=== PATIENT | female | born 1965 | race Caucasian/White ===

== ENCOUNTER 2017-01-11 17:33 | Emergency (ER) | payer OTHER ==
[~2017-01-11] VITALS: Ht 154.9 cm; Wt 84.8 kg
[~2017-01-11 17:33] MED LIST: CLINDAMYCIN300 MG PO; FLEXERIL10 MG PO; GABAPENTIN300 MG; NORCO 325 MG-51 TAB PO; TRAMADOL50 MG PO
[2017-01-11 18:17] VITALS: BP 178/82
--- NOTE | 2017-01-11 20:27 | ED ANIMAL BITE/WOUND CHECK ---
History of Present Illness General Chief Complaint: General Adult Stated Complaint: DOG BITE WEDNESDAY NO BETTER Source: patient Exam Limitations: no limitations Vital Signs & Intake/Output Vital Signs & Intake/Output Vital Signs Date Time Temp Pulse Resp B/P Pulse O2 O2 Flow FiO2 Ox Delivery Rate 01/11 2045 Room Air 01/11 1817 88 20 178/82 98 Room Air 01/11 1745 98.2 102 20 190/110 96 Room Air ED Intake and Output 01/12 0000 01/11 1200 Intake Total Output Total Balance Patient 187 lb Weight Allergies Coded Allergies: cephalexin (From KEFLEX) (ANAPHYLAXIS 01/11/17) Reconcile Medications Amoxicillin 500 MG CAPSULE 1 CAP PO TID ANTIBIOTIC (Reported) Amoxicillin/Potassium Clav (Augmentin 875-125 Tablet) 875 MG-125 MG TABLET 1 TAB PO BID cellulitis Clonazepam 1 MG TABLET 1 TAB PO TID ANXIETY (Reported) Clonidine HCl 0.2 MG TABLET 1 TAB PO TID BP (Reported) Fluoxetine HCl (Prozac) 20 MG CAPSULE 1 CAP PO QAM MENTAL HEALTH (Reported) Gabapentin (Neurontin) 300 MG CAPSULE 1 CAP PO TID NERVE PAIN (Reported) Hydrocodone/Acetaminophen (Hydrocodon-Acetaminophen 5-325) 5 MG-325 MG TABLET 1-2 TAB PO Q4-6 PRN PRN pain Ibuprofen 800 MG TABLET 1 TAB PO TID pain Lisdexamfetamine Dimesylate (Vyvanse) 60 MG CAPSULE 1 CAP PO QAM ADD ( Reported) Triage Note: PT TO ED C/O DOG BITE TO RIGHT HAND. SUSTAINED WEDNESDAY. PT HAS NOT BEEN SEEN FOR IT. HAS BEEN TAKING AMOXICILLIN 500MG TID THAT SHE FOUND AT HOME. IT WAS PT'S DOG, WHO IS UP TO DATE ON SHOTS. UNKNOWN LAST TETANUS SHOT PER PT. BITE TO RIGHT HAND, SWOLLEN, PINK AND WARM TO TOUCH. Triage Nurses Notes Reviewed? yes Onset: Abrupt Duration: day(s): (3), constant Timing: recent history Is Injury an Animal Bite? Yes Animal Type: dog Appearance of Animal: appeared well Severity: moderate, severe No Modifying Factors: none HPI: 51-year-old female comes into emergency room for further evaluation of dog bite to her right hand that occurred 3 days ago. Dog is up-to-date on rabies vaccine. Patient is not up-to-date on her tetanus shot. Patient reports that she had a few amoxicillin at home and took him but reports that she's had swelling and pain to the area. Denies any fever. Denies any vomiting. Some associated chills and just feels generally fatigued. Denies any other associated symptoms at this time. (ALICE ROSA) Past History Travel History Traveled to [place] past 21 day No Medical History Any Pertinent Medical History? see below for history Cardiovascular: hypertension Surgical History Surgical History: non-contributory Psychosocial History What is your primary language Iraqi Tobacco Use: Current Daily Use Daily Tobacco Use Amount/Type: => 5 Cigarettes daily ETOH Use: denies use Illicit Drug Use: denies illicit drug use Family History Hx Contributory? No (ALICE ROSA) Review of Systems Review of Systems Constitutional: Reports: no symptoms. EENTM: Reports: no symptoms. Respiratory: Reports: no symptoms. Cardiovascular: Reports: no symptoms. GI: Reports: no symptoms. Genitourinary: Reports: no symptoms. Musculoskeletal: Reports: see HPI. Skin: Reports: see HPI. Neurological/Psychological: Reports: no symptoms. Hematologic/Endocrine: Reports: no symptoms. Immunologic/Allergic: Reports: no symptoms. All Other Systems: Reviewed and Negative (ALICE ROSA) Physical Exam Physical Exam General Appearance: well developed/nourished Head: atraumatic Eyes: Bilateral: normal appearance. Ears, Nose, Throat: normal ENT inspection, hearing grossly normal Neck: normal inspection Respiratory: no respiratory distress Back: normal inspection Extremities: erythema dorsum of right hand, limited range of motion, warmth, tenderness with palpation, radial pulse intact, capillary refill intact, Neurologic/Psych: awake, alert, oriented x 3, normal mood/affect Skin: intact, normal color, warm/dry Lymphatic: no anterior cervical shreyas (ALICE ROSA) Progress Differential Diagnosis: abscess, cellulitis, joint infection, tenosysnovitis Plan of Care: Current Medications Sig/[place] Start time Last Medication Dose Stop Time Status Admin Tetanus/Diphtheria 0.5 ML ONCE ONE 01/11 2045 UNVr Toxoids Adsorbed 01/11 2046 (Decavac) Amoxicillin/ 500 MG ONCE ONE 01/11 2030 UNVr Clavulanate Potassium 01/11 2031 (Augmentin) Comments: Patient started on Augmentin. Patient will return in 3 days for a wound check. Clinically looks well. Nontoxic-appearing. In no apparent distress. (ALICE ROSA) Departure Departure Disposition: HOME OR SELF CARE Condition: Stable Clinical Impression Primary Impression: Cellulitis of right hand Referrals: ROSIBEL BOOTH APRN (PCP/Family) Additional Instructions: Take Augmentin as prescribed. Warm compresses to right hand. Return on of this week between 10/09 for wound check. Return if any spreading of redness, fever, chills, or any other concerns. Please go over all results of today's visit with your primary care doctor. Contact your primary care doctor to let them know you were here in the emergency room. There may be nonspecific findings which may not be related to your visit today here in the emergency room but may require further evaluation and chronic monitoring by your primary care doctor. If you had a laceration today the chance of foreign body always remains. You should follow-up with your primary care doctor for recheck in 3-5 days for a wound check. If you had an x-ray done there is a chance that a fracture could have been missed on initial read and you should follow-up with your primary care doctor for repeat x-rays if symptoms persist. If your blood pressure was elevated here in the emergency room please have rechecked by her primary care doctor within the next 48 hours by your primary care doctor. If you were prescribed a narcotic here in the emergency room or any type of controlled substances you're not allowed to drive while taking this medication or operate any type of heavy machinery. Narcotics can make you feel lightheaded dizziness nausea and can cause constipation. You may need to scrap picker a stool softener. Thank you for choosing [facility] emergency room. Please return to the emergency room immediately if you have any other concerns worsening of symptoms. Departure Forms: Customer Survey General Discharge Information Prescriptions: Current Visit Scripts Amoxicillin/Potassium Clav (Augmentin 875-125 Tablet) 1 TAB PO BID #20 TAB Hydrocodone/Acetaminophen (Hydrocodon-Acetaminophen 5-325) 1-2 TAB PO Q4-6 PRN PRN pain #10 TAB Ibuprofen 1 TAB PO TID #30 TAB (ALICE ROSA) PA/FEATHER BALER Co-Sign Statement Statement: ED Attending supervision documentation- [] I saw and evaluated the patient. I have also reviewed all the pertinent lab results and diagnostic results. I agree with the findings and the plan of care as documented in the PA's/FEATHER BALER's documentation. [X] I have reviewed the ED Record and agree with the PA's/FEATHER BALER's documentation. [] Additions or exceptions (if any) to the PAs/FEATHER BALER's note and plan are summarized below: [] (CYNTHIA MARTINEZ,DARRELL Mehta)
[2017-01-11] MEDS ORDERED: PROZAC20 M2 PO (20:29)
[2017-01-11] MEDS ORDERED: CLONIDINE HCL0.2 M1 PO (20:29)
[2017-01-11] MEDS ORDERED: NEURONTIN300 M1 PO (20:29)
[2017-01-11] MEDS ORDERED: VYVANSE60 M1 PO (20:30)
[2017-01-11] MEDS ORDERED: CLONAZEPAM1 M2 PO (20:30)
[2017-01-11] MEDS ORDERED: AMOXICILLIN500 M2 PO (20:31)
[2017-01-11] MEDS ORDERED: AUGMENTIN 875-1 EACH PO (20:34)
[2017-01-11] MEDS ORDERED: HYDROCODON-ACE1 EAC2 PO (20:42)
[2017-01-11] MEDS ORDERED: IBUPROFEN800 M1 PO (20:42)
== END 2017-01-11 20:57 ==
LOC: ERH 17:33
DX: L03.113 Cellulitis of right upper limb (principal); W54.0XXA Bitten by dog, initial encounter
CPT/HCPCS: 90471; 90714; J3490

== ENCOUNTER 2017-04-13 13:52 | Emergency (ER) | payer OTHER ==
[~2017-04-13] VITALS: Ht 154.9 cm; Wt 77.1 kg
[~2017-04-13 13:52] MED LIST changes: +AMOXICILLIN500 M2 PO; +AUGMENTIN 875-1 EACH PO; +CLONAZEPAM1 M2 PO; +CLONIDINE HCL0.2 M1 PO; +HYDROCODON-ACE1 EAC2 PO; +IBUPROFEN800 M1 PO; +NEURONTIN300 M1 PO; +PROZAC20 M2 PO; +VYVANSE60 M1 PO
[2017-04-13] MEDS ORDERED: PROZAC40 M1 PO (14:07)
[2017-04-13] MEDS ORDERED: NEURONTIN600 M1 PO (14:08)
[2017-04-13] MEDS ORDERED: DOLOPHINE HCL10 M1 PO (14:08)
[2017-04-13] MEDS ORDERED: ABILIFY10 M1 PO (14:08)
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
[2017-04-13 14:35] LABS: ABSOLUTE BASOPHIL COUNT 0 /CUMM (0.0-0.2); ABSOLUTE EOSINOPHIL COUNT 0.3 /CUMM (0.0-0.7); ABSOLUTE GRANULOCYTE CT 6.6 /CUMM (1.4-6.5); ABSOLUTE MONOCYTE COUNT 0.6 /CUMM (0.10-0.60); BASOPHIL % 0.3 % (0.0-2.0); EOSINOPHIL % 2.3 % (0-5); GRANULOCYTE % 52.7 % (42.2-75.2); MEAN CORPUSCULAR HGB 31.3 PG (27.0-31.0); MEAN CORPUSCULAR HGB CONC 32.9 G/DL (33.0-37.0); MEAN CORPUSCULAR VOLUME 95.1 FL (81.0-99.0); MEAN PLATELET VOLUME 9.2 FL (7.4-10.4); PLATELET COUNT 229 /CUMM (130-400); RED BLOOD CELL CT 4.41 /CUMM (4.20-5.40); WHITE BLOOD CELL COUNT 12.6 /CUMM (4.8-10.8)
[2017-04-13] MEDS ORDERED: CIPRO500 M1 PO (14:35)
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
[2017-04-14 14:05] VITALS: BP 129/78
== END 2017-04-14 14:51 | disposition short-term general hospital (02) ==
LOC: ERH 13:52
PROVIDERS: Emergency Medicine
DX: F32.9 Major depressive disorder, single episode, unspecified (principal); R45.851 Suicidal ideations
CPT/HCPCS: 80307; 81003; G0463; G0480

== ENCOUNTER 2017-04-30 18:46 | Emergency (ER) | payer OTHER ==
[~2017-04-30] VITALS: Ht 154.9 cm; Wt 80.7 kg
[~2017-04-30 18:46] MED LIST changes: +ABILIFY10 M1 PO; +CIPRO500 M1 PO; +DOLOPHINE HCL10 M1 PO; +NEURONTIN600 M1 PO; +PROZAC40 M1 PO
[2017-04-30 18:54] VITALS: BP 139/83
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
[2017-04-30] MEDS ORDERED: VYVANSE60 M1 (20:28)
[2017-04-30] MEDS ORDERED: DOXYCYCLINE HY100 M4 PO (20:45)
== END 2017-04-30 20:53 ==
LOC: ERH 18:46
DX: L03.114 Cellulitis of left upper limb (principal); L03.311 Cellulitis of abdominal wall

== ENCOUNTER 2017-05-18 14:22 | Inpatient (IN) | payer OTHER ==
[~2017-05-18] VITALS: Ht 158.8 cm; Wt 79.8 kg
[~2017-05-18 14:22] MED LIST changes: +DOXYCYCLINE HY100 M4 PO; +VYVANSE60 M1
[2017-05-18 16:33] LABS: ABSOLUTE BASOPHIL COUNT 0 /CUMM (0.0-0.2); ABSOLUTE EOSINOPHIL COUNT 0.2 /CUMM (0.0-0.7); ABSOLUTE GRANULOCYTE CT 15.9 /CUMM (1.4-6.5); ABSOLUTE LYMPH COUNT 2.1 /CUMM (1.2-3.4); ABSOLUTE MONOCYTE COUNT 0.7 /CUMM (0.10-0.60); BASOPHIL % 0.1 % (0.0-2.0); EOSINOPHIL % 0.8 % (0-5); HEMATOCRIT 39.5 % (37-47); MEAN CORPUSCULAR HGB 31.3 PG (27.0-31.0); MEAN CORPUSCULAR VOLUME 94.6 FL (81.0-99.0); MEAN PLATELET VOLUME 8.4 FL (7.4-10.4); PLATELET COUNT 227 /CUMM (130-400); RBC DISTRIBUTION WIDTH 14.4 % (11.5-14.5); RED BLOOD CELL CT 4.17 /CUMM (4.20-5.40); WHITE BLOOD CELL COUNT 18.9 /CUMM (4.8-10.8)
[2017-05-18 16:34] LABS: GRANULOCYTE % 84.1 % (42.2-75.2)
[2017-05-18] MEDS ORDERED: NEURONTIN800 M2 PO (17:11)
--- NOTE | 2017-05-18 17:15 | ED THROAT/DENTAL COMPLAINT ---
History of Present Illness General Chief Complaint: General Adult Stated Complaint: SORE THROAT, FEET/LOWER LEGS SWOLLEN Source: patient Exam Limitations: no limitations Vital Signs & Intake/Output Vital Signs & Intake/Output Vital Signs Date Time Temp Pulse Resp B/P B/P Pulse O2 O2 Flow FiO2 Mean Ox Delivery Rate 05/18 2048 100.1 05/18 2015 99.6 78 20 130/76 90 Room Air 05/18 1851 102.5 79 20 131/63 95 Room Air 05/18 1431 99.1 82 18 118/78 96 Room Air Allergies Coded Allergies: cephalexin (From KEFLEX) (ANAPHYLAXIS 01/11/17) Reconcile Medications Aripiprazole (Abilify) 10 MG TABLET 1 TAB PO DAILY MENTAL HEALTH (Reported) Clonazepam 1 MG TABLET 1 TAB PO TID ANXIETY (Reported) Clonidine HCl 0.2 MG TABLET 1 TAB PO TID BP (Reported) Fluoxetine HCl (Prozac) 40 MG CAPSULE 1 CAP PO DAILY MENTAL HEALTH (Reported) Gabapentin (Neurontin) 800 MG TABLET 1 TAB PO TID MENTAL HEALTH/NERVE PAIN ( Reported) Methadone HCl (Dolophine HCl) 10 MG TABLET 80 MG PO DAILY OPIATE DEPENDENCE ( Reported) Triage Note: 51 Y/O FEMALE C/O SORE THROAT, FATIGUE, AND BILATERAL LEG SWELLING X 2-3 DAYS. STATES THIS HAPPENED ONCE BEFORE AND "I WAS SEPTIC FROM AN INFECTION AND I WASN'T EATING OR DRINKING". Triage Nurses Notes Reviewed? yes Onset: Gradual Duration: day(s): Timing: recent history Severity: severe No Modifying Factors: none HPI: 51yo female presents to emergency department complaining of sore throat. She states sore throat began yesterday morning when she woke up and has been gradually getting worse. Pain is described as severe, she states she can barely swallow, she is spitting up her bodily fluids, she is having difficulty eating and drinking. She also complains of mild nausea, fatigue, malaise, dry cough, bilateral ankle and foot swelling, and feeling feverish and chills. She states that a few years ago she was septic and had to be admitted at [place] for IV antibiotics, following a sore throat. She denies sick contact, dyspnea, abdominal pain, changes in bowel movements, urinary symptoms. (MAGALI URRUTIA,ALICE) Past History Travel History Traveled to [place] past 21 day No Medical History Any Pertinent Medical History? 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 Psychosocial History Who do you live with Daughter What is your primary language German Tobacco Use: Current Daily Use Daily Tobacco Use Amount/Type: => 5 Cigarettes daily Family History Hx Contributory? No (ALICE ROSA) Review of Systems Review of Systems Constitutional: Reports: see HPI. EENTM: Reports: see HPI. Respiratory: Reports: see HPI. Cardiovascular: Reports: no symptoms. GI: Reports: see HPI. Genitourinary: Reports: no symptoms. Musculoskeletal: Reports: no symptoms. Skin: Reports: no symptoms. Neurological/Psychological: Reports: no symptoms. Hematologic/Endocrine: Reports: no symptoms. Immunologic/Allergic: Reports: no symptoms. All Other Systems: Reviewed and Negative (ALICE ROSA) Physical Exam Physical Exam General Appearance: well developed/nourished, no apparent distress, lethargic Head: atraumatic, normal appearance Eyes: Bilateral: normal appearance, EOMI. Nose: normal inspection Mouth/Throat: YELLOW/BROWN PATCHES ON TONGUE, SCRAPPED OFF WITH KEYLA BLADE , SMALL WHITE PATCH VISIBLE ON POSTERIOR PHARYNX, NO TONSILS PRESENT, UVULA MIDLINE, Neck: lymphadenopathy (R), lymphadenopathy (L) (ANTERIOR CERVICAL) Cardiovascular/Respiratory: regular rate/rhythm, no respiratory distress, wheezing (EXPIRATORY) Gastrointestinal: BOWEL SOUNDS PRESENTS, ABDOMEN SOFT, NONTENDER, NO REBOUND OR GAURDING Back: normal inspection, normal range of motion Neurologic/Psych: awake, oriented x 3 Skin: intact, normal color, warm/dry Core Measures ACS in differential dx? No Severe Sepsis Present: No Septic Shock Present: No (ALICE ROSA) Progress Differential Diagnosis: epiglottitis, odontogenic abscess, mac-tonsillar abscess, strep pharyngitis, oral thrush, sepsis Plan of Care: Orders Procedure Date/time Status Clear Liquid Diet 05/19 B Active CBC WITHOUT DIFFERENTIAL 05/19 06 Active BASIC ELECTROLYTES PLUS BUN&CR 05/19 06 Active Pathway - chart 05/18 2103 Active TRC EVALUATION (GEN) 05/18 2100 Active Pathway - chart 05/18 2100 Active House Staff 05/18 2100 Active Code Status 05/18 2100 Active Vital Signs 05/18 204 Active Teach/Educate 05/18 2047 Active Pain Treatment and Response 05/18 2047 Active Nutritional Intake, Monitor 05/18 2047 Active Isolation 05/18 2047 Active Intake & Output 05/18 2047 Active Patient Care Conference 05/18 2047 Active Activity/Ambulation 05/18 2047 Active LACTIC ACID 05/18 2045 Active Add-on Test (ER Only) 05/18 195 Active Intake & Output 05/18 1850 Active CULTURE,URINE 05/18 181 Active URINALYSIS 05/18 181 Complete Patient Data 05/18 1750 Active LACTIC ACID 05/18 1745 Complete BLOOD CULTURE 05/18 1742 Active URINE DRUGS OF ABUSE 05/18 1742 Complete ED Holding Orders 05/18 1717 Active Admit to inpatient 05/18 1717 Active Vital Signs 05/18 1717 Active Code Status 05/18 1717 Complete THROAT CULTURE W/QUICK STREP 05/18 1619 Active COMPREHENSIVE METABOLIC PANEL 05/18 1619 Complete CBC WITHOUT DIFFERENTIAL 05/18 1619 Complete XRY-SOFT TISSUE NECK 05/18 UNK Active VTE Mechanical Prophylaxis 05/18 UNK Active Current Medications Sig/[place] Start time Last Medication Dose Stop Time Status Admin Methadone HCl 80 MG DAILY 05/19 1000 AC (Dolophine) Clonazepam 1 MG TID 05/180 AC (Klonopin 1MG Tab) 05/25 2159 Clonidine 0.2 MG TID 05/18 2200 AC (Catapres) Gabapentin 800 MG Q8 05/18 2200 AC (Neurontin) Acetaminophen 650 MG Q6P PRN 05/18 2115 AC (Tylenol) Ketorolac 15 MG Q6P PRN 05/18 2115 AC Tromethamine (Toradol) Morphine Sulfate 2 MG Q4P PRN 05/18 2115 AC (Morphine) Ondansetron HCl 4 MG Q6P PRN 05/18 2115 AC (Zofran) Senna/Docusate Sodium 2 TAB AT BEDTIME PRN 05/18 2115 AC (Senokot S) Enoxaparin Sodium 40 MG Q24H 05/18 2100 AC (Lovenox) Sodium Chloride 1,000 ML .Q10H 05/18 2100 AC (Normal Saline 0.9%) Aripiprazole 10 MG DAILY 05/18 2049 AC (Abilify) Fluoxetine HCl 40 MG DAILY 05/18 2049 AC (Prozac) Laboratory Tests 05/18/171810: Lactic Acid 0.9, Urine Opiates Screen 277.00, Methadone Screen 163, Barbiturate Screen < 60, Ur Phencyclidine Scrn < 6.00, Amphetamines Screen < 100, U Benzodiazepines Scrn > 800 H, Urine Cocaine Screen < 50, Urine Cannabis Screen < 5.00, Urinalysis LIGHT H, Urine Color YEL, Urine Clarity CLEAR, Urine pH 8.0, Ur Specific [place] 1.010, Urine Protein TRACE H, Urine Ketones NEG, Urine Nitrite NEG, Urine Bilirubin NEG, Urine Urobilinogen 1.0, Ur Leukocyte Esterase TRACE H, Ur Microscopic SEDIMENT EXAMINED, Urine WBC 1-3 H, Ur Epithelial Cells FEW, Urine Hemoglobin NEG, Urine Glucose NEG 05/18/17 1619: Anion Gap 9, Estimated GFR > 60, BUN/Creatinine Ratio 14.3, Glucose 105 H, Calcium 8.9, Total Bilirubin 0.6, AST 14, ALT 30, Alkaline Phosphatase 93, Total Protein 6.8, Albumin 3.9, Globulin 2.9, Albumin/Globulin Ratio 1.3, CBC w Diff MAN DIFF ORDERED, RBC 4.17 L, MCV 94.6, MCH 31.3 H, RDW 14.4, MPV 8.4, Gran % 84.1 H, Lymphocytes % 11.2 L, Monocytes % 3.8, Eosinophils % 0.8, Basophils % 0.1, Absolute Granulocytes 15.9 H, Absolute Lymphocytes 2.1, Absolute Monocytes 0.7 H, Absolute Eosinophils 0.2, Absolute Basophils 0, Poikilocytosis 1+, Ovalocytes FEW, PUBS MCHC 33.0 Microbiology 05/18 1811 URINE ROUT: Urine Culture - RECD 05/18 1757 BLOOD: Blood Culture - RECD 05/18 1751 BLOOD: Blood Culture - RECD Patient appears ill, she is not in acute respiratory distress however difficulty swallowing. Epiglottitis high concern on differential.. CBC shows leukocytosis. Patient also acting abnormally, she fell asleep during questioning, urine toxicology ordered to further assess. (ALICE ROSA) PATIENT SEEN AND EVALUATED AT BEDSIDE WITH PA. EPIGLOTTITIS SEEN ON EXAMINATION BY DR RODRIGUEZ IN ED WITH NPL. DOES NOT FEEL PATIENT NEEDS ICU ADMISSION. IV UNASYN GIVEN. (IRIS SAHU MD) Departure Departure Disposition: STILL A PATIENT Condition: Stable Clinical Impression Primary Impression: Epiglottitis Secondary Impressions: Leukocytosis Referrals: ROSIBEL BOOTH APRN (PCP/Family) Departure Forms: Customer Survey General Discharge Information Admission Note Spoke With: DANAY LOPEZ MD Documentation of Exam: Documentation of any treatments & extenuating circumstances including Concerns Regarding Discharge (functional status, medication knowledge or non-compliance, living conditions, etc.) that warrant an admission rather than observation: Patient has elevated white count. Patient will require ear nose and throat consultation. ENT is going to scope the patient here in the emergency room. Epiglottitis seen on physical exam by ear nose and throat doctor. Patient will require close observation for airway monitoring. IV steroids. Patient spiked a fever of 102. Patient will require IV antibiotics. IV fluids. High risk. (ALICE ROSA) PA/DESK PENS ASSEMBLER Co-Sign Statement Statement: ED Attending supervision documentation- [X] I saw and evaluated the patient. I have also reviewed all the pertinent lab results and diagnostic results. I agree with the findings and the plan of care as documented in the PA's/DESK PENS ASSEMBLER's documentation. [X] I have reviewed the ED Record and agree with the PA's/DESK PENS ASSEMBLER's documentation. [] Additions or exceptions (if any) to the PAs/DESK PENS ASSEMBLER's note and plan are summarized below: [] (IRIS SAHU MD)
--- NOTE | 2017-05-18 18:54 | Cons- Ear,Nose&Throat ---
General Information and HPI Consulting Request Date of Consult: 05/18/17 Requested By: DANAY LOPEZ MD Reason for Consult: severe sore throat suspected oral sav Source of Information: patient Exam Limitations: no limitations History of Present Illness: presents with 1 day history of severe sore throat which has progressively worsened. Odynophagia can tolerate liquids , but not solids Allergies/Medications Allergies: Coded Allergies: cephalexin (From KEFLEX) (ANAPHYLAXIS 01/11/17) Home Med List: Aripiprazole (Abilify) 10 MG TABLET 1 TAB PO DAILY MENTAL HEALTH (Reported) Clonazepam 1 MG TABLET 1 TAB PO TID ANXIETY (Reported) Clonidine HCl 0.2 MG TABLET 1 TAB PO TID BP (Reported) Fluoxetine HCl (Prozac) 40 MG CAPSULE 1 CAP PO DAILY MENTAL HEALTH (Reported) Gabapentin (Neurontin) 800 MG TABLET 1 TAB PO TID MENTAL HEALTH/NERVE PAIN ( Reported) Methadone HCl (Dolophine HCl) 10 MG TABLET 80 MG PO DAILY OPIATE DEPENDENCE ( Reported) Current Medications: Current Medications Sig/[place] Start time Last Medication Dose Route Stop Time Status Admin Fluconazole 200 MG ONCE ONE 05/18 1745 DC 05/18 PO 05/18 174 1842 Past History Medical History Neurological: NERVE PAIN EENT: NONE Cardiovascular: hypertension Respiratory: NONE Gastrointestinal: NONE Hepatic: NONE Renal: NONE Musculoskeletal: NONE Psychiatric: anxiety, depression Endocrine: NONE Blood Disorders: NONE Cancer(s): NONE 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 Exam & Diagnostic Data Vital Signs and I&O Vital Signs Date Time Temp Pulse Resp B/P B/P Pulse O2 O2 Flow FiO2 Mean Ox Delivery Rate 05/18 1431 99.1 82 18 118/78 96 Room Air Intake & Output 05/18 1600 05/18 0800 05/18 0000 05/17 1600 05/17 0800 05/17 0000 Intake Total Output Total Balance Patient 178 lb Weight Weight Reported by Patient Measurement Method patient examined in the ER awake, alert, oriented ventilating easily - no evidence of airway problem Ears: clear Nose: clear oral exam: no trismus no lesions posterior pharyngeal erythema neck supple FIBEROPTIC LARYNGOSCOPY via right nostril; using oxymetazoline for decongesting viscous xylocaine for topical anesthesia findings: nasopharynx erythematous hypopharynx - lingual surface of epiglottis is edematous and extending to the left aryepiglottic fold endolarynx otherwise normal Assessment/Plan Assessment/Plan Impression: suprglottitis, acute Rec: Unasyn IV steroids analgesics prn Consult Acknowledgment - Thank you for your consult request.
--- NOTE | 2017-05-18 19:59 | Admission Certification ---
Admission Certification Certification Statement - As attending physician, I certify that at the time of - admission, based on clinical presentation, severity of - symptoms, need for further diagnostic testing and - therapeutic interventions, and risk of adverse outcomes - without in-hospital treatment, in my clinical assessment, - this patient requires an acute hospital stay for a minimum - of two nights or longer. I have also considered psychsocial - factors such as support system, advanced age, financial - issues, cognitive issues, and failed out-patient treatments, - past re-admission history, safety of patient, and lack of - compliance as applicable. Specific rationale supporting this admission is: Acute supraglottitis.
--- NOTE | 2017-05-18 20:12 | History & Physical ---
BNE REDD 05/18/172007: General Information and HPI MD Statement: I have seen and personally examined ASHLEY ESTRELLA and documented this H&P. The patient is a 51 year old F who presented with a patient stated chief complaint of [epiglotitis]. Source of Information: patient Exam Limitations: no limitations History of Present Illness: 51-year-old woman presented to the emergency room complaining of worsening dysphagia, odynophagia and high grade fever. According to patient, she had a similar episode about 3 years ago, for which she was admitted at [facility] for 8 years. Patient recalls that she almost got intubated and her disease had a very protracted course. According to patient, yesterday she started feeling a little bit of difficulty swallowing, and also slightly pain with swallow. Her dysphagia/odynophagia worsens overnight and patient developed rigors and fever. Today patient has very poor appetite due to her worsening dysphagia and odynophagia she also developed drooling and eventually decided to come to emergency room for further evaluation. Patient denies any chest pain, palpitation, dizziness, difficulty breathing. Of note, her past medical history is significant for opiate dependence on methadone 80 mg per day, hypertension on clonidine, anxiety on clonazepam, neuropathic pain on gabapentin. She was also recently treated with ciprofloxacin for urinary tract infection. Past social history: Smoker 5 cigarettes a day for more than 30 years, denies EtOH and IV drug abuse, currently not sexually active, denies having high risk relationship. Remote history of pain medication dependence currently on methadone( [facility], [place]). Family history: Unremarkable Review of system: Complains of odynophagia and dysphagia, generalized weakness and fatigue. Vital signs: 102.9, 79,20, 131/63, 95% in RA. Physical exam: AO x3; in moderate distress, no respiratory distress. HEENT: Erythema& swelling of the tonsillar/ soft pallate, tender ant. cervical chain lymphadenopathy, - oral thrus, - posterior cervical LAD. Lungs: clear and normla air movement, no stridor, no wheezing. Heart: S1 S2 no murmur. Allergies/Medications Allergies: Coded Allergies: cephalexin (From KEFLEX) (ANAPHYLAXIS 01/11/17) Compliance With Home Meds: GOOD Past History Travel History Traveled to [place] past 21 day No Medical History Neurological: NERVE PAIN EENT: NONE Cardiovascular: hypertension Respiratory: NONE Gastrointestinal: NONE Hepatic: NONE Renal: NONE Musculoskeletal: NONE Psychiatric: anxiety, depression Endocrine: NONE Blood Disorders: NONE Cancer(s): NONE MANAGER SAP/Reproductive: NONE Isolation History: Standard Tetanus Vaccine: 01/11/17 Surgical History Surgical History: She states that she has had 2 knee replacements. Past Family/Social History Family History Relations & Conditions if any Relation not specified for: *No pertinent family history Psychosocial History Where do you live? Home ETOH Use: daily; 5 cigarettes a day Functional Ability ADLs Independent: dressing, eating, toileting, bathing. Ambulation: independent IADLs Independent: shopping, housework, finances, food prep, telephone, transportation , medication admin. Sexual History Sexual Orientation Heterosexual Use of Protection Yes Always Review of Systems Review of Systems Constitutional: Reports: see HPI. EENTM: Reports: see HPI, throat swelling, mouth pain. Denies: ear discharge, ear pain, ear redness, hearing changes, nasal congestion, tooth pain. Cardiovascular: Reports: no symptoms. Respiratory: Reports: no symptoms. GI: Reports: no symptoms. Genitourinary: Reports: no symptoms. Exam & Diagnostic Data Last 24 Hrs of Vital Signs/I&O Vital Signs Date Time Temp Pulse Resp B/P B/P Pulse O2 O2 Flow FiO2 Mean Ox Delivery Rate 05/18 2048 100.1 05/18 1851 102.5 79 20 131/63 95 Room Air 05/18 1431 99.1 82 18 118/78 96 Room Air Intake & Output 05/18 1600 05/18 0800 05/18 0000 Intake Total Output Total Balance Patient 178 lb Weight Weight Reported by Patient Measurement Method Physical Exam General Appearance Alert, Oriented X3, Moderate Distress Skin No Rashes, No Breakdown, No Significant Lesion Skin Temp/Moisture Exam: Warm/Dry HEENT Atraumatic, MM are dry, erythematous pharynx and edema and erythema of the pallate Neck + tenderness anterior cervical LAD Lymphatic Anterior anterior cervical Cardiovascular Normal S1, Normal S2, No Murmurs Extremities No Cyanosis, No Edema Vascular Normal Pulses, Pulses Symmetrical Reproductive (FEMALE) Normal female genitalia Body Front and Back (Adult) 1) skin thickening Last 24 Hrs of Labs/Gino: Laboratory Tests 05/18/17 1811: Lactic Acid 0.9, Urine Opiates Screen 277.00, Methadone Screen 163, Barbiturate Screen < 60, Ur Phencyclidine Scrn < 6.00, Amphetamines Screen < 100, U Benzodiazepines Scrn > 800 H, Urine Cocaine Screen < 50, Urine Cannabis Screen < 5.00, Urinalysis LIGHT H, Urine Color YEL, Urine Clarity CLEAR, Urine pH 8.0, Ur Specific [place] 1.010, Urine Protein TRACE H, Urine Ketones NEG, Urine Nitrite NEG, Urine Bilirubin NEG, Urine Urobilinogen 1.0, Ur Leukocyte Esterase TRACE H, Ur Microscopic SEDIMENT EXAMINED, Urine WBC 1-3 H, Ur Epithelial Cells FEW, Urine Hemoglobin NEG, Urine Glucose NEG 05/18/17 1619: Anion Gap 9, Estimated GFR > 60, BUN/Creatinine Ratio 14.3, Glucose 105 H, Calcium 8.9, Total Bilirubin 0.6, AST 14, ALT 30, Alkaline Phosphatase 93, Total Protein 6.8, Albumin 3.9, Globulin 2.9, Albumin/Globulin Ratio 1.3, CBC w Diff MAN DIFF ORDERED, RBC 4.17 L, MCV 94.6, MCH 31.3 H, RDW 14.4, MPV 8.4, Gran % 84.1 H, Lymphocytes % 11.2 L, Monocytes % 3.8, Eosinophils % 0.8, Basophils % 0.1, Absolute Granulocytes 15.9 H, Absolute Lymphocytes 2.1, Absolute Monocytes 0.7 H, Absolute Eosinophils 0.2, Absolute Basophils 0, Poikilocytosis 1+, Ovalocytes FEW, PUBS MCHC 33.0 Microbiology 05/18 1811 URINE ROUT: Urine Culture - RECD 05/18 1757 BLOOD: Blood Culture - RECD 05/18 1751 BLOOD: Blood Culture - RECD Assessment/Plan Assessment: Pertinent data: WBC 18.9 with 84% left shift no bandemia, H&H: /39, platelets 227. Sodium 134, potassium 4.3, chloride 96, BUN 10 creatinine 0.7. Lateral next x-ray was ordered: Rapid strep test: Negative. ENT consultants: Significantly mentions "No evidence of airway problems",. Fiberoptic laryngoscopy findings: Nasopharynx erythematous. Hypopharynx- lingual surface of epiglottitis is edematous and extending to the left eye epiglottic fold. Assessment and plan 51-year-old woman was admitted for acute supraglottitis. List of problems -Acute supraglottitis -Opiate dependence -Hypertension -Anxiety plan -Continue IV Unasyn 3000 mg IV daily -IV Solu-Medrol 20 mg daily -IV hydration with 1 bag of normal saline 100 mL per hour -Clear liquid diets -Obtain lateral neck x-ray -If patient became hypoxic consider using racemic epinephrine and rapid induction intubation and transfer to ICU -Full code/pain meds As Ranked By This Provider Problem List: 1. Supraglottitis 2. Epiglottitis 3. Leukocytosis Core Measures/Miscellaneous Acute Coronary Syndrome ACS Diagnosis: No Cerebrovascular Accident CVA/TIA Diagnosis: No Congestive Heart Failure CHF Diagnosis: No VTE (View Protocol) VTE Risk Factors: Acute medical illness, Age > 40, Obesity No [facility] VTE prophylaxis d/t: No contraindications No VTE Pharm Prophylaxis d/t: No contraindications VTE Diagnosis: No VTE Type: NONE VTE Confirmed by (Test): NONE Sepsis (View Protocol) Severe Sepsis Present: No Septic Shock Septic Shock Present: No Miscellaneous Documentation Attending Case Discussed With: Aletha Townsend MD Primary Care Physician: ROSIBEL BOOTH APRN Patient sees these Specialists Accounts Payable Processor Level of Patient Care: General Medicine Resident Review Statement Resident Statement: examined this patient, discussed with manager internet retails sales, agreed with manager internet retails sales, discussed with family, reviewed EMR data (avail), discussed with nursing , discussed with case mgmt, reviewed images, amended to note Attending MD Review Statement Attending Statement Attending MD Statement: examined this patient, discuss w/resident/PA/CUSTOM DRESSMAKER, agreed w/resident/PA/CUSTOM DRESSMAKER, discussed with family, reviewed EMR data (avail), discussed with nursing, discussed with case mgmt, reviewed images, amended to note MACEY MARTINEZ, [facility] 05/18/17 1518: General Information and HPI Allergies/Medications Home Med list Amoxicillin/Clavulanate Potass (Amox-Clav 875-125 MG Tablet) 875 MG-125 MG TABLET 875 MG PO Q12 epiglottitis Aripiprazole (Abilify) 10 MG TABLET 1 TAB PO DAILY MENTAL HEALTH (Reported) Clonazepam 1 MG TABLET 1 TAB PO TID ANXIETY (Reported) Clonidine HCl 0.2 MG TABLET 1 TAB PO TID BP (Reported) Fluoxetine HCl (Prozac) 40 MG CAPSULE 1 CAP PO DAILY MENTAL HEALTH (Reported) Gabapentin (Neurontin) 800 MG TABLET 1 TAB PO TID MENTAL HEALTH/NERVE PAIN ( Reported) Methadone HCl (Dolophine HCl) 10 MG TABLET 80 MG PO DAILY OPIATE DEPENDENCE ( Reported) Prednisone 10 MG TABLET 1 TAB PO SI epiglottitis take 4 tablets on 05/22 take 3 tablets on 05/23 take 2 tablets on 05/24 take 1 tablet on 05/25 then stop prednisone Attending MD Review Statement Attending Statement Attending MD Statement: examined this patient, discuss w/resident/PA/CUSTOM DRESSMAKER, agreed w/resident/PA/CUSTOM DRESSMAKER Attending Assessment/Plan: 51 yo F smoker, with h/o HTN, depression, anxiety, neuropathy, chronic back pain on methadone maintenance, previous h/o epiglottitis (3 yrs ago at [facility]) pw 1-day h/o sore throat, dysphagia (tolerates liquids, but not solids), chills, fever and at times odynophagia. Poor appetite, nausea+, drooling of saliva, no vomiting. No sick contacts. No change in voice. Of note, she was recently treated for UTI with Cipro (March 2017) and continues to reports mild urinary symptoms. Vitals: Tmax 102.5, BP 130/76, sats 94% RA. Exam: AAO, lethargic, able to speak in full sentences, respiratory status is stable, speech clear, oropharynx: pharyngeal erythema+, no palpable lymphadenopathy. Chest b/l clear, Heart S1S2 regular, systolic murmur+. LE b/l trace edema. Labs: WBC 18.9, Na 134, lactic acid 0.9. UA neg, Utox positive for benzos. 1. Sepsis, acute supraglottitis/ epiglottitis. GM admit, ENT Dr. Curran evaluated patient in the ER, bedside fiberoptic laryngoscopy done in ER confirms the above diagnosis, please refer to consult note for details. Quick strep negative. Blood cultures x2, IV Unasyn 3 mg Q6, IV solumedrol 40 Q8, TRC nebs, anti-emetics, NSAIDs, pain management as needed. Clear liquid diet for now, advance as tolerated in AM. Low threshold for intubation if symptoms worsen. Smoking cessation counseling. 2. Resume home meds clonidine, klonopin, prozac, gabapentin, abilify and methadone (confirm dose with [facility]). 3. Heart murmur. Patient reports knowing about this for past 1 year. No Echo performed. She does report 3-4 month h/o exertional dyspnea and new onset LE edema. She should follow up with a needle grader as outpatient. Will obtain echo for now. DVT ppx Lovenox. Full code.
[2017-05-18 20:15] VITALS: BP 130/76
[2017-05-18 22:41] VITALS: BP 132/88
[2017-05-19 06:32] VITALS: BP 160/100
--- NOTE | 2017-05-19 07:04 | RADIOLOGY REPORT ---
EXAMINATION: XR SOFT TISSUE NECK CLINICAL INDICATION: Dysphagia and underlying aphasia. Presumptive diagnosis of epiglottitis or supraglottitis. COMPARISON: None TECHNIQUE: 2 views of the soft tissue neck were obtained. FINDINGS: There is abnormal thickening and rounded appearance of the epiglottis with mild prominence of the aryepiglottic fold, suspicious for epiglottitis. No prevertebral soft tissue swelling is seen. No significant enlargement of the adenoids or tonsils is appreciated. No soft tissue calcifications are seen. There is a minimal convex left cervical scoliosis with mild vertebral spondylosis at C5 and C6 and mild diffuse spurring at the lateral masses, most prominent at C2-C3 and C3-C4. IMPRESSION: Findings are consistent with epiglottitis.
[2017-05-19 08:14] LABS: ABSOLUTE BASOPHIL COUNT 0 /CUMM (0.0-0.2); ABSOLUTE EOSINOPHIL COUNT 0 /CUMM (0.0-0.7); ABSOLUTE GRANULOCYTE CT 21.3 /CUMM (1.4-6.5); ABSOLUTE LYMPH COUNT 1.2 /CUMM (1.2-3.4); ABSOLUTE MONOCYTE COUNT 0.2 /CUMM (0.10-0.60); BASOPHIL % 0 % (0.0-2.0); EOSINOPHIL % 0 % (0-5); GRANULOCYTE % 93.7 % (42.2-75.2); HEMATOCRIT 40.9 % (37-47); MEAN CORPUSCULAR HGB 31.4 PG (27.0-31.0); MEAN CORPUSCULAR HGB CONC 32.8 G/DL (33.0-37.0); MEAN CORPUSCULAR VOLUME 95.6 FL (81.0-99.0); MEAN PLATELET VOLUME 9.3 FL (7.4-10.4); PLATELET COUNT 210 /CUMM (130-400); RBC DISTRIBUTION WIDTH 14.5 % (11.5-14.5); RED BLOOD CELL CT 4.28 /CUMM (4.20-5.40)
--- NOTE | 2017-05-19 08:19 | PN- Housestaff ---
Subjective Follow-up For: -Acute supraglottitis -Opiate dependence -Hypertension -Anxiety Complaints: pain scale (0-10) Subjective: Patient was seen and examined this morning. She is alert awake and oriented to time place and person. No acute events noticed overnight. She feels much improved this morning. She was able to swallow without any difficulty or pain. She denied any drooling. She was able to tolerate clear liquid diet. Advance her to regular diet for breakfast She denied any difficulty breathing, fever or chills, chest pain or discomfort. Vitals remained stable. Temperature 97.5, heart rate 63, respiratory rate 20, blood pressure 160/100, saturating at 91 on room air. Review of Systems Constitutional: Reports: no symptoms. Objective Last 24 Hrs of Vital Signs/I&O Vital Signs Date Time Temp Pulse Resp B/P B/P Pulse O2 O2 Flow FiO2 Mean Ox Delivery Rate 05/19 0938 Room Air Room Air 05/19 0937 98 Room Air Room Air 05/19 0632 97.5 63 20 160/100 91 Room Air 05/19 0601 63 160/100 05/18 2241 97.8 70 20 132/88 93 Room Air 05/18 2219 78 130/76 05/18 2048 100.1 05/18 2015 99.6 78 20 130/76 90 Room Air 05/18 1851 102.5 79 20 131/63 95 Room Air 05/18 1431 99.1 82 18 118/78 96 Room Air Intake & Output 05/19 1600 05/19 0800 05/19 0000 Intake Total 1400 1050 1700 Output Total Balance 1400 1050 1700 Intake, IV 150 342 4608 Intake, Oral 600 250 200 Patient 79.832 kg Weight Weight Reported by Patient Measurement Method Physical Exam General Appearance: Alert, Oriented X3, Cooperative, No Acute Distress Skin: No Rashes, No Breakdown HEENT: Atraumatic, PERRLA, EOMI, sore throat, redness of throat Neck: Supple, No JVD Lymphatic: Cervical nl Cardiovascular: Normal S1, Normal S2 Lungs: Clear to Auscultation, Normal Air Movement Abdomen: Normal Bowel Sounds, Soft, No Tenderness Neurological: Strength at 5/5 X4 Ext Extremities: No Clubbing, No Cyanosis, No Edema Vascular: Pulses Symmetrical Current Medications: Current Medications Sig/[place] Start time Last Medication Dose Route Stop Time Status Admin Acetaminophen 650 MG Q6P PRN 06/20 2115 AC PO Ampicillin Sodium/ 3,000 MG Q6H 05/19 0400 AC 05/19 Sulbactam Sodium IV 0924 Sodium Chloride 100 ML Ampicillin Sodium/ 0 .STK-MED ONE 05/18 190 DC Sulbactam Sodium .ROUTE Ampicillin Sodium/ 3,000 MG ONCE ONE 05/18 1900 DC 05/18 Sulbactam Sodium IV 05/18 1929 1905 Sodium Chloride 100 ML Aripiprazole 10 MG DAILY 05/18 204 AC 05/19 PO 0924 Clonazepam 1 MG TID 05/18 2200 AC 05/19 PO 05/25 2159 0924 Clonidine 0.2 MG TID 05/18 2200 AC 05/19 PO 0601 Dexamethasone 8 MG ONCE ONE 05/18 190 DC 05/18 IV PUSH 05/18 190 191 Enoxaparin Sodium 40 MG Q24H 05/18 2100 AC 05/18 SC 2220 Fluconazole 200 MG ONCE ONE 05/18 1745 DC 05/18 PO 05/18 1746 1842 Fluoxetine HCl 40 MG DAILY 05/18 2049 AC 05/19 PO 0924 Gabapentin 800 MG Q8 05/180 AC 05/19 PO 1302 Ketorolac 15 MG Q6P PRN 05/18 2115 AC Tromethamine IV Ketorolac 0 .STK-MED ONE 05/18 1904 DC Tromethamine .ROUTE Ketorolac 30 MG ONCE ONE 05/18 190 DC 05/18 Tromethamine IV 05/18 190 1905 Methadone HCl 80 MG DAILY 05/19 1000 AC 05/19 PO 0924 Methylprednisolone 40 MG BID 05/19 2200 AC IV Methylprednisolone 40 MG Q8H 05/19 1200 DC 05/19 IV 1145 Methylprednisolone 20 MG DAILY 05/19 1000 DC IV Methylprednisolone 40 MG Q8 05/19 0400 DC 05/19 IV 0404 Morphine Sulfate 2 MG Q4P PRN 05/18 2115 AC 05/18 IV 2220 Nicotine 14 MG DAILY 05/19 1000 AC 05/19 TOP 1043 Ondansetron HCl 4 MG Q6P PRN 05/18 2115 AC IV Senna/Docusate Sodium 2 TAB AT BEDTIME PRN 05/18 2115 AC PO Sodium Chloride 1,000 ML .Q10H 05/18 2100 AC 05/19 IV 0924 Sodium Chloride 1,000 ML BOLUS ONE 05/18 1915 DC 05/18 IV 05/18 Sodium Chloride 1,000 ML BOLUS ONE 05/18 1915 DC 05/18 IV 05/18 Sodium Chloride 500 ML BOLUS ONE 05/18 1915 DC 05/18 IV 05/18 Last 24 Hrs of Lab/Gino Results Last 24 Hrs of Labs/Mics: Laboratory Tests 05/19/17 0700: Anion Gap 10, Estimated GFR > 60, BUN/Creatinine Ratio 20.0, CBC w Diff MAN DIFF ORDERED, RBC 4.28, MCV 95.6, MCH 31.4 H, RDW 14.5, MPV 9.3, Gran % 93.7 H, Lymphocytes % 5.5 L, Monocytes % 0.8 L, Eosinophils % 0, Basophils % 0 L, Absolute Granulocytes 21.3 H, Segmented Neutrophils 88 H, Band Neutrophils 7 H, Absolute Lymphocytes 1.2, Lymphocytes 5 L, Absolute Monocytes 0.2, Absolute Eosinophils 0, Absolute Basophils 0, Platelet Estimate VERIFIED BY SMEAR, Normocytic RBCs VERIFIED, Normochromic RBCs VERIFIED, PUBS MCHC 32.8 L 05/18/175: Lactic Acid 1.2 05/18/17 1811: Lactic Acid 0.9, Urine Opiates Screen 277.00, Methadone Screen 163, Barbiturate Screen < 60, Ur Phencyclidine Scrn < 6.00, Amphetamines Screen < 100, U Benzodiazepines Scrn > 800 H, Urine Cocaine Screen < 50, Urine Cannabis Screen < 5.00, Urinalysis LIGHT H, Urine Color YEL, Urine Clarity CLEAR, Urine pH 8.0, Ur Specific [place] 1.010, Urine Protein TRACE H, Urine Ketones NEG, Urine Nitrite NEG, Urine Bilirubin NEG, Urine Urobilinogen 1.0, Ur Leukocyte Esterase TRACE H, Ur Microscopic SEDIMENT EXAMINED, Urine WBC 1-3 H, Ur Epithelial Cells FEW, Urine Hemoglobin NEG, Urine Glucose NEG 05/18/17 1619: Anion Gap 9, Estimated GFR > 60, BUN/Creatinine Ratio 14.3, Glucose 105 H, Calcium 8.9, Total Bilirubin 0.6, AST 14, ALT 30, Alkaline Phosphatase 93, Total Protein 6.8, Albumin 3.9, Globulin 2.9, Albumin/Globulin Ratio 1.3, CBC w Diff MAN DIFF ORDERED, RBC 4.17 L, MCV 94.6, MCH 31.3 H, RDW 14.4, MPV 8.4, Gran % 84.1 H, Lymphocytes % 11.2 L, Monocytes % 3.8, Eosinophils % 0.8, Basophils % 0.1, Absolute Granulocytes 15.9 H, Absolute Lymphocytes 2.1, Absolute Monocytes 0.7 H, Absolute Eosinophils 0.2, Absolute Basophils 0, Poikilocytosis 1+, Ovalocytes FEW, PUBS MCHC 33.0 Microbiology 05/18 1811 URINE ROUT: Urine Culture - RES 05/18 1757 BLOOD: Blood Culture - RES 05/18 1751 BLOOD: Blood Culture - RES Assessment/Plan Assessment: This is a 51-year-old female with past medical history significant for anxiety, depression, hypertension, neuropathy, bilateral knee replacements, opiate dependence on methadone, current smoker presented to the emergency room complaining of worsening dysphagia, odynophagia and high grade fever for 1 day. Today patient has very poor appetite due to her worsening dysphagia and odynophagia. she also developed drooling and eventually decided to come to emergency room for further evaluation. According to patient, she had a similar episode about 3 years ago, for which she was admitted at [facility] for 8 days. Patient recalls that she almost got intubated and her disease had a very protracted course. Today patient has very poor appetite due to her worsening dysphagia and odynophagia she also developed drooling and eventually decided to come to emergency room for further evaluation. Vitals on admission afebrile, heart rate 82, respiratory rate 18, blood pressure 128/78, saturating at 96 on room air Pertinent data: WBC 18.9 with 84% left shift no bandemia, H&H: 13/39, platelets 227. Sodium 134, potassium 4.3, chloride 96, BUN 10 creatinine 0.7. Rapid strep test: Negative. Neck x-ray IMPRESSION: Findings are consistent with epiglottitis. Problem list 1. Acute epiglottitis 2. Depression 3. Anxiety 4. Hypertension 5. Neuropathy 6. Opiate dependence Acute Epiglottitis/sepsis Patient presented to emergency department with worsening dysphagia, odynophagia associated with chills and rigors of 1 day duration. Also reported drooling. Was able to tolerate liquids but not solids. Spiked a temperature 102.5 associated with leukocytosis 19,000 on admission. She fulfilled SIRS criteria on admission and the possible source of sepsis might be throat. * She was admitted to general medicine floor for further management of epiglottitis * Monitor vitals closely every shift * Maintain oxygen saturations Above 90% * Closely monitor for fever, worsening leukocytosis * Rapid strep was negative * ENT was on board * Significantly mentions "No evidence of airway problems",. * Fiberoptic laryngoscopy findings: Nasopharynx erythematous. Hypopharynx- lingual surface of epiglottitis is edematous and extending to the left eye epiglottic fold. * She was started on IV antibiotics * Continue IV Unasyn day2 * Continue IV methylprednisolone 40 mg every 12 hours to reduce inflammation, redness and swelling * Follow blood cultures * TRC nebs * Pain management * Diet was advanced to regular, able to tolerate * Low threshold for intubation if symptoms worsens Depression Continue home medication abilify Continue home medication fluoxetine Anxiety Continue home medication clonazepem 1 mg 3 times a day Hypertension Continue home medication clonidine 0.2 mg 3 times a day nerve pain Continue gabapentin 800 mg 3 times a day Opiate dependence Remote history of pain medication dependence -currently on methadone( [facility]). Continue methadone 80 mg daily Problem List: 1. Epiglottitis 2. Supraglottitis 3. Leukocytosis Pain Ratin Pain Location: throat paim Pain Goal: Remain pain free Pain Plan: debbie on methadone Tomorrow's Labs & Rationales: cbc in the setting of leukocytosis
[2017-05-19 10:09] LABS: WHITE BLOOD CELL COUNT 22.7 /CUMM (4.8-10.8)
--- NOTE | 2017-05-19 12:51 | PN- Att Addend ---
Attending Addendum Attending Brief Note Patient seen and examined, overall feeling much better. She claims that swallowing is much more easier. She denies any shortness of breath. SHe was little drowsy. Vital Signs Date Time Temp Pulse Resp B/P B/P Pulse O2 O2 Flow FiO2 Mean Ox Delivery Rate 05/19 0938 Room Air Room Air 05/19 0937 98 Room Air Room Air 05/19 0632 97.5 63 20 160/100 91 Room Air 05/19 0601 63 160/100 05/18 2241 97.8 70 20 132/88 93 Room Air 05/18 2219 78 130/76 05/18 2048 100.1 05/18 2015 99.6 78 20 130/76 90 Room Air 05/18 1851 102.5 79 20 131/63 95 Room Air 05/18 1431 99.1 82 18 118/78 96 Room Air on exam; aox3, nad. cv; s1,s2, rrr neck; no stridor resp; clear abd; soft, nt, bs+ ext; no edema Laboratory Tests 05/19 05/18 0700 2205 Chemistry Sodium (137 - 145 mmol/L) 138 Potassium (3.5 - 5.1 mmol/L) 4.1 Chloride (98 - 107 mmol/L) 104 Carbon Dioxide (22 - 30 mmol/L) 24 Anion Gap (5 - 16) 10 BUN (7 - 17 mg/dL) 8 Creatinine (0.5 - 1.0 mg/dL) 0.4 L Estimated GFR (>60 ml/min) > 60 BUN/Creatinine Ratio (7 - 25 %) 20.0 Lactic Acid (0.7 - 2.1 mmol/L) 1.2 Hematology CBC w Diff MAN DIFF ORDERED WBC (4.8 - 10.8 /CUMM) 22.7 H RBC (4.20 - 5.40 /CUMM) 4.28 Hgb (12.0 - 16.0 G/DL) 13.4 Hct (37 - 47 %) 40.9 MCV (81.0 - 99.0 FL) 95.6 MCH (27.0 - 31.0 PG) 31.4 H RDW (11.5 - 14.5 %) 14.5 Plt Count (130 - 400 /CUMM) 210 MPV (7.4 - 10.4 FL) 9.3 Gran % (42.2 - 75.2 %) 93.7 H Lymphocytes % (20.5 - 51.1 %) 5.5 L Monocytes % (1.7 - 9.3 %) 0.8 L Eosinophils % (0 - 5 %) 0 Basophils % (0.0 - 2.0 %) 0 L Absolute Granulocytes (1.4 - 6.5 /CUMM) 21.3 H Segmented Neutrophils (42.2 - 75.2 %) 88 H Band Neutrophils (0.0 - 5.0 %) 7 H Absolute Lymphocytes (1.2 - 3.4 /CUMM) 1.2 Lymphocytes (20.5 - 51.1 %) 5 L Absolute Monocytes (0.10 - 0.60 /CUMM) 0.2 Absolute Eosinophils (0.0 - 0.7 /CUMM) 0 Absolute Basophils (0.0 - 0.2 /CUMM) 0 Platelet Estimate (ADEQUATE) VERIFIED BY SMEAR Normocytic RBCs VERIFIED Normochromic RBCs VERIFIED PUBS MCHC (33.0 - 37.0 G/DL) 32.8 L 05/18 05/18 1811 1619 Chemistry Sodium (137 - 145 mmol/L) 134 L Potassium (3.5 - 5.1 mmol/L) 4.3 Chloride (98 - 107 mmol/L) 96 L Carbon Dioxide (22 - 30 mmol/L) 28 Anion Gap (5 - 16) 9 BUN (7 - 17 mg/dL) 10 Creatinine (0.5 - 1.0 mg/dL) 0.7 Estimated GFR (>60 ml/min) > 60 BUN/Creatinine Ratio (7 - 25 %) 14.3 Glucose (65 - 99 mg/dL) 105 H Lactic Acid (0.7 - 2.1 mmol/L) 0.9 Calcium (8.4 - 10.2 mg/dL) 8.9 Total Bilirubin (0.2 - 1.3 mg/dL) 0.6 AST (14 - 36 U/L) 14 ALT (9 - 52 U/L) 30 Alkaline Phosphatase (<127 U/L) 93 Total Protein (6.3 - 8.2 g/dL) 6.8 Albumin (3.5 - 5.0 g/dL) 3.9 Globulin (1.9 - 4.2 gm/dL) 2.9 Albumin/Globulin Ratio (1.1 - 2.2 %) 1.3 Hematology CBC w Diff MAN DIFF ORDERED WBC (4.8 - 10.8 /CUMM) 18.9 H RBC (4.20 - 5.40 /CUMM) 4.17 L Hgb (12.0 - 16.0 G/DL) 13.0 Hct (37 - 47 %) 39.5 MCV (81.0 - 99.0 FL) 94.6 MCH (27.0 - 31.0 PG) 31.3 H RDW (11.5 - 14.5 %) 14.4 Plt Count (130 - 400 /CUMM) 227 MPV (7.4 - 10.4 FL) 8.4 Gran % (42.2 - 75.2 %) 84.1 H Lymphocytes % (20.5 - 51.1 %) 11.2 L Monocytes % (1.7 - 9.3 %) 3.8 Eosinophils % (0 - 5 %) 0.8 Basophils % (0.0 - 2.0 %) 0.1 Absolute Granulocytes (1.4 - 6.5 /CUMM) 15.9 H Absolute Lymphocytes (1.2 - 3.4 /CUMM) 2.1 Absolute Monocytes (0.10 - 0.60 /CUMM) 0.7 H Absolute Eosinophils (0.0 - 0.7 /CUMM) 0.2 Absolute Basophils (0.0 - 0.2 /CUMM) 0 Poikilocytosis 1+ Ovalocytes FEW PUBS MCHC (33.0 - 37.0 G/DL) 33.0 Toxicology Urine Opiates Screen (>2000 NG/ML) 277.00 Methadone Screen (>300 NG/ML) 163 Barbiturate Screen (>200 NG/ML) < 60 Ur Phencyclidine Scrn (>25 NG/ML) < 6.00 Amphetamines Screen (>1000 NG/ML) < 100 U Benzodiazepines Scrn (>200 NG/ML) > 800 H Urine Cocaine Screen (>300 NG/ML) < 50 Urine Cannabis Screen (>50 NG/ML) < 5.00 Urines Urinalysis LIGHT H Urine Color (YEL,AMB,STR) YEL Urine Clarity (CLEAR) CLEAR Urine pH (5.0 - 8.0) 8.0 Ur Specific [place] (1.001 - 1.035) 1.010 Urine Protein (NEG,<30 MG/DL) TRACE H Urine Ketones (NEG) NEG Urine Nitrite (NEG) NEG Urine Bilirubin (NEG) NEG Urine Urobilinogen (0.1 - 1.0 EU/dl) 1.0 Ur Leukocyte Esterase (NEG) TRACE H Ur Microscopic SEDIMENT EXAMINED Urine WBC (0 - 2 /HPF) 1-3 H Ur Epithelial Cells (NONE,FEW) FEW Urine Hemoglobin (NEG) NEG Urine Glucose (N MG/DL) NEG A/P; 51-year-old female with past medical history significant for hypertension, anxiety, depression who was admitted with epiglottitis. Patient had been seen by ENT on in the emergency room. They recommended steroids as well as antibiotics. Currently patient on IV steroids and IV antibiotics. Improving overall. If continues to improve then likely can switch her to oral antibiotics and oral steroids tomorrow. Her blood pressure was very high this morning and she has received clonidine. She is also chronic methadone dependent. DVT px: Lovenox.
[2017-05-19 14:48] VITALS: BP 128/84
--- NOTE | 2017-05-19 15:38 | PN- Student ---
Subjective Subjective: Student H&P CC: Worsening dysphagia, odynophagia, fever, and weakness Source: patient HPI: Mrs. Sharpe is a 51 yo white female who presents with dysphagia, odynophagia, and fever that reportedly started on wednesday. She states that it was very mild dysphagia and odynophagia at first but then worsened overnight to the point where she could not swallow at all due to the severe pain. She also reported rigors and fever at that time. She states that she had a similar episode like this approximately 3 years ago at [facility] for which she was hospitalized for 8 days. During that hospitalization they had attempted to intubate her which failed. She states that currently the pain is so bad that she has not been eating or drinking much and that she has been drooling and spitting so that she doesnt have to swallow her saliva. She also complains of generalized weakness but denies any chest pain, breathing difficulty, or abdominal pain. She reports flori urination and defecation has been normal. PMH: Patient has a PMH of opiate dependence for which she takes methadone, HTN which is being treated with clonidine, Anxiety being treated with clonazepam, and neuropathic pain being treated with gabapentin. She also reported having a recent UTI which she was treated with ciprofloxacin. Family Hx: Patient family history unremarkable Social Hx: Patient smokes 5 cigarettes/day for over 30 years. Denies alcohol use, illicit drug use, and is not sexually active. ROS: General-reports fever, rigors, and weakness; denies headache, weight loss HEENT- reports dysphagia, odynophagia, lymphadenopathy; denies vision changes, hearing difficulty Cardiovascular- denies chest pain, palpitations Respiratory- denies dyspnea, cough, or pain GI- denies change in bowel habit, abdominal pain, melena, diarrhea Renal/repro- denies dysuria, hematuria Heme/onc- no symptoms Endocrine- no symptoms Extremities- no symptoms Neurology- Objective Objective: Vital Signs Date Time Temp Pulse Resp B/P B/P Pulse O2 O2 Flow FiO2 Mean Ox Delivery Rate 05/19 1448 97.8 67 20 128/84 94 05/19 0938 Room Air Room Air 05/19 0937 98 Room Air Room Air 05/19 0632 97.5 63 20 160/100 91 Room Air 05/19 0601 63 160/100 05/18 2241 97.8 70 20 132/88 93 Room Air 05/18 2219 78 130/76 05/18 2048 100.1 05/18 2015 99.6 78 20 130/76 90 Room Air 05/18 1851 102.5 79 20 131/63 95 Room Air PE: General- AAO x 3, cooperative, mild distress HEENT- atraumatic, PERRLA, erythema and swelling of tonsills and soft palate of pharynx noted, no thrush appreciated, white exudate and black crust seen. Neck- anterior cervical lymphadenopathy present, slight tenderness to palpation. no posterior cervial lymphadenopathy noted. CV- S1 and S2 appreciate, regular rate and rhythm, no murmurs or rubs appreciated Chest- equal chest rise bilaterally, vesicular sounds heard throughout all lung jimenez, no distress, good air movement. Abdomen- no distention, bowel sounds heard, soft and non-tender to palpation, no organomegaly, spleen not palpable. Skin- intact, warm and well perfused Extremities- 1+ pitting edema of bilateral feet, 5/5 strength x all extremities, sensation and motor grossly intact Results Results: Laboratory Tests 05/18/172204: Lactic Acid 1.2 05/18/171810: Lactic Acid 0.9, Urine Opiates Screen 277.00, Methadone Screen 163, Barbiturate Screen < 60, Ur Phencyclidine Scrn < 6.00, Amphetamines Screen < 100, U Benzodiazepines Scrn > 800 H, Urine Cocaine Screen < 50, Urine Cannabis Screen < 5.00, Urinalysis LIGHT H, Urine Color YEL, Urine Clarity CLEAR, Urine pH 8.0, Ur Specific [place] 1.010, Urine Protein TRACE H, Urine Ketones NEG, Urine Nitrite NEG, Urine Bilirubin NEG, Urine Urobilinogen 1.0, Ur Leukocyte Esterase TRACE H, Ur Microscopic SEDIMENT EXAMINED, Urine WBC 1-3 H, Ur Epithelial Cells FEW, Urine Hemoglobin NEG, Urine Glucose NEG 05/18/17 1619: Anion Gap 9, Estimated GFR > 60, BUN/Creatinine Ratio 14.3, Glucose 105 H, Calcium 8.9, Total Bilirubin 0.6, AST 14, ALT 30, Alkaline Phosphatase 93, Total Protein 6.8, Albumin 3.9, Globulin 2.9, Albumin/Globulin Ratio 1.3, CBC w Diff MAN DIFF ORDERED, RBC 4.17 L, MCV 94.6, MCH 31.3 H, RDW 14.4, MPV 8.4, Gran % 84.1 H, Lymphocytes % 11.2 L, Monocytes % 3.8, Eosinophils % 0.8, Basophils % 0.1, Absolute Granulocytes 15.9 H, Absolute Lymphocytes 2.1, Absolute Monocytes 0.7 H, Absolute Eosinophils 0.2, Absolute Basophils 0, Poikilocytosis 1+, Ovalocytes FEW, PUBS MCHC 33.0 Microbiology 05/18 1811 URINE ROUT: Urine Culture - RES 05/18 1757 BLOOD: Blood Culture - RES 05/18 1751 BLOOD: Blood Culture - RES Assessment/Plan Assessment: Patient presented with severe dysphagia, odynophagia, generalized weakness, fever and rigors. She reports having similar episode in the past (3yr ago at [facility]) that resulted in 8 day admission and failed intubation attempt. Today she presents with WBC-18.9 with left shift without bandemia, H/H- 13/39, platelets-227. Sodium 134, potassium 4.3, chloride 96, BUN 10 creatinine 0.7. Physical exam was suggestive of a bacterial pharyngitis/epiglottitis over fungal infection. ENT Dr. Cardoso performed fiberoptic laryngoscopy which suggested supraglottitis. -Ordered lateral neck x-ray -Rapid strep test: Negative -ENT consultants: Significantly mentions "No evidence of airway problems",. -Fiberoptic laryngoscopy findings: Nasopharynx erythematous. Hypopharynx- lingual surface of epiglottitis is edematous and extending to the left eye epiglottic fold. Problem List: -Acute supraglottitis -Opiate dependence -Hypertension -Anxiety Current Medications Sig/[place] Start time Last Medication Dose Stop Time Status Admin Methylprednisolone 40 MG BID 05/20 1000 AC (Solumedrol) Methylprednisolone 40 MG Q8 05/19 1501 AC (Solumedrol) 05/19 2300 Methadone HCl 80 MG DAILY 05/19 1000 AC 05/19 (Dolophine) 0924 Nicotine 14 MG DAILY 05/19 1000 AC 05/19 (Nicotine Cq) 1043 Ampicillin Sodium/ 3,000 MG Q6H 05/19 0400 AC 05/19 Sulbactam Sodium 0924 (Unasyn) Sodium Chloride 100 ML (Normal Saline 0.9%) Clonazepam 1 MG TID 05/18 2200 AC 05/19 (Klonopin 1MG Tab) 05/25 2159 0924 Clonidine 0.2 MG TID 05/18 2200 AC 05/19 (Catapres) 0601 Gabapentin 800 MG Q8 05/18 2200 AC 05/19 (Neurontin) 1302 Acetaminophen 650 MG Q6P PRN 05/18 2115 AC (Tylenol) Ketorolac 15 MG Q6P PRN 05/18 2115 AC Tromethamine (Toradol) Morphine Sulfate 2 MG Q4P PRN 05/18 2115 AC 05/18 (Morphine) 2220 Ondansetron HCl 4 MG Q6P PRN 05/18 2115 AC (Zofran) Senna/Docusate Sodium 2 TAB AT BEDTIME PRN 05/18 2115 AC (Senokot S) Enoxaparin Sodium 40 MG Q24H 05/18 2100 AC 05/18 (Lovenox) 2220 Sodium Chloride 1,000 ML .Q10H 05/18 2100 AC 05/19 (Normal Saline 0.9%) 0924 Aripiprazole 10 MG DAILY 05/18 2049 AC 05/19 (Abilify) 0924 Fluoxetine HCl 40 MG DAILY 05/18 2049 AC 05/19 (Prozac) 0924 Orders Procedure Date/time Status CBC WITHOUT DIFFERENTIAL 05/20 06 Active Regular Diet 05/19 B Active RT: Evaluation 05/19 0936 Active CBC WITHOUT DIFFERENTIAL 05/19 0600 Complete BASIC ELECTROLYTES PLUS BUN&CR 05/19 06 Complete TRC EVALUATION (GEN) 05/19 UNK Complete Anticipated Discharge 05/19 UNK Active Nursing Misc 05/19 UNK Active MISSING MEDICATION FORM 05/19 UNK Active ECHOCARDIOGRAM 05/19 UNK Active Pathway - chart 05/18 2103 Active TRC EVALUATION (GEN) 05/18 2100 Complete Pathway - chart 05/18 2100 Active House Staff 05/18 2100 Active Code Status 05/18 2100 Active Vital Signs 05/18 2047 Active Teach/Educate 05/18 2047 Active Pain Treatment and Response 05/18 2047 Active Nutritional Intake, Monitor 05/18 2047 Active Isolation 05/18 2047 Active Intake & Output 05/18 2047 Active Patient Care Conference 05/18 2047 Active Activity/Ambulation 05/18 2047 Active LACTIC ACID 05/18 2045 Complete Add-on Test (ER Only) 05/18 1958 Active Intake & Output 05/18 1850 Active CULTURE,URINE 05/18 1811 Active URINALYSIS 05/18 1811 Complete Patient Data 05/18 1750 Active LACTIC ACID 05/18 1745 Complete BLOOD CULTURE 05/18 1742 Active URINE DRUGS OF ABUSE 05/18 1742 Complete ED Holding Orders 05/18 1717 Active Admit to inpatient 05/18 1717 Active Vital Signs 05/18 1717 Active Code Status 05/18 1717 Complete THROAT CULTURE W/QUICK STREP 05/18 1619 Active COMPREHENSIVE METABOLIC PANEL 05/18 1619 Complete CBC WITHOUT DIFFERENTIAL 05/18 1619 Complete VTE Mechanical Prophylaxis 05/18 UNK Active Plan: Patient was admitted to general medicine floor for acute supraglottitis. Problem List: 1.Acute supraglottitis -Continue IV Unasyn 3000 mg IV daily -IV Solu-Medrol 20 mg daily -IV hydration with 1 bag of normal saline 100 mL per hour -Clear liquid diets -Obtain lateral neck x-ray -If patient became hypoxic consider using racemic epinephrine and rapid induction intubation and transfer to ICU 2.Opiate dependence -Continue methadone 80 mg/day 3.Hypertension -continue clonidine 0.2mg TID PO 4.Anxiety -continue clonazepam 1 mg PO TID Code Status: full Diet: clear liquids DVT prophylaxis: SQ lovenox
--- NOTE | 2017-05-19 16:09 | Patient Discharge Instructions ---
Discharge Instructions General Discharge Information You were seen/treated for: Acute supraglottitis/epiglottitis You had these procedures: None Watch for these problems: Worsening dysphagia odonophagia Drooling Difficulty breathing Fever, chills Special Instructions: Please follow-up with your primary care physician within 1 week after discharge Please follow-up with ENT doctor within 1 week after discharge Diet Continue normal diet: Yes Activity Full Activity/No Limits: Yes Acute Coronary Syndrome Inclusion Criteria At DC or during hospital stay patient has or had the following: ACS DIAGNOSIS No Discharge Core Measures Meds if any: Prescribed or Continued at Discharge Meds if any: NOT Prescribed or Continued at Discharge Congestive Heart Failure Inclusion Criteria At DC or during hospital stay patient has or had the following: CHF DIAGNOSIS No Discharge Core Measures Meds if any: Prescribed or Continued at Discharge Meds if any: NOT Prescribed or Continued at Discharge Cerebrovascular accident Inclusion Criteria At DC or during hospital stay patient has or had the following: CVA/TIA Diagnosis No Discharge Core Measures Meds if any: Prescribed or Continued at Discharge Meds if any: NOT Prescribed or Continued at Discharge Venous thromboembolism Inclusion Criteria VTE Diagnosis No VTE Type NONE VTE Confirmed by (Test) NONE Discharge Core Measures - Per Current guidelines, there needs to be overlap - treatment for the first 5 days of Warfarin therapy. - If discharged on Warfarin prior to 5 days of - overlap therapy, the patient will need to be - assessed for post discharge needs including - *Post discharge parental anticoagulation - *Warfarin and/or parental anticoagulation education - *Follow up date to check INR post discharge At least 5 days overlap therapy as Inpatient No Meds if any: Prescribed or Continued at Discharge Note: Overlap Therapy is Warfarin and Anticoagulant Meds if any: NOT Prescribed or Continued at Discharge
--- NOTE | 2017-05-19 21:06 | ECHOCARDIOGRAM REPORT ---
ASHLEY ESTRELLA Age: 51 : 1965 Gender: F Exam Date: 05/19/2017 15:57 Exam Location: [place] Ht (in): 62 Wt (lb): 175 BSA: 1.90 BP: 160 / 100 Ordering Physician: LEON DICK MD Referring Physician: LEON DICK MD Technologist: Tiffanie Meyer [facility] Room Number: 230-01 Indications: MURMUR/CLICK Rhythm: Sinus Technical Quality: Fair FINDINGS Left Ventricle Normal global left ventricular size, wall thickness, systolic function with no obvious regional wall motion abnormalities. Normal left ventricular ejection fraction estimated at 60-65%. Right Ventricle Right ventricle not well visualized, grossly normal. Right Atrium Normal right atrial size. Left Atrium Left atrial size at the upper limits of normal. Mitral Valve Mitral valve thickened. Trace to mild mitral regurgitation. Aortic Valve Trileaflet aortic valve. Focal thickening of the aortic valve cusps. No aortic stenosis. No aortic regurgitation. Tricuspid Valve Tricuspid valve not well visualized, grossly normal. Mild tricuspid regurgitation. Right ventricular systolic pressure estimated at 30 mmHg. Pulmonic Valve Pulmonic valve not well visualized, grossly normal. Pericardium No pericardial effusion. Great Vessels Aortic root and proximal ascending aorta not well visualized, grossly normal. CONCLUSIONS 1. Aortic sclerosis is present with no valvular stenosis or insufficiency. 2. Mitral leaflet thickening is present with minimal to mild mitral insufficiency but no definite valvular prolapse. Mild anular calcification is also noted. 3. There is no pericardial fluid detected. 4. The left ventricular chamber size and systolic function appear normal. 5. Mild tricuspid insufficiency is present with no evidence of pulmonary hypertension Niranjan Hickman M.D. (Electronically Signed) Final Date: 19 May 2017 21:05 MEASUREMENTS (Male / Female) Normal Values 2D ECHO LV Diastolic Diameter PLAX 4.0 cm 4.2 - 5.9 / 3.9 - 5.3 cm LV Systolic Diameter PLAX 2.5 cm 2.1 - 4.0 cm LV Fractional Shortening PLAX 37.5 % 25 - 46 % LV Ejection Fraction 2D Teich 68.1 % IVS Diastolic Thickness 1.2 cm LVPW Diastolic Thickness 1.2 cm LV Relative Wall Thickness 0.6 RV Internal Dim ED PLAX 3.7 cm 1.9 - 3.8 cm LVOT Diameter 1.9 cm Aortic Root Diameter 2.9 cm LA Systolic Diameter LX 4.1 cm 3.0 - 4.0 / 2.7 - 3.8 cm LA Volume 46.4 cm 18 - 58 / 22 - 52 cm LA Volume Index 24.5 cm/m 16 - 28 cm/m Ascending Aorta Diameter 2.9 cm DOPPLER AV Peak Velocity 173.0 cm/s AV Peak Gradient 12.0 mmHg AV Mean Velocity 117.0 cm/s AV Mean Gradient 6.0 mmHg AV Velocity Time Integral 42.6 cm LVOT Peak Velocity 147.0 cm/s LVOT Peak Gradient 8.6 mmHg LVOT Mean Velocity 97.5 cm/s LVOT Mean Gradient 4.0 mmHg LVOT Velocity Time Integral 35.8 cm LVOT Stroke Volume 101.5 cm AV Area Cont Eq vti 2.4 cm AV Area Cont Eq pk 2.4 cm MV Peak Velocity 106.0 cm/s MV Peak Gradient 4.5 mmHg MV Mean Velocity 60.9 cm/s MV Mean Gradient 2.0 mmHg Mitral E Point Velocity 123.0 cm/s Mitral A Point Velocity 96.3 cm/s Mitral E to A Ratio 1.3 MV PHT Velocity 110.0 cm/s MV Deceleration [place] 488.0 cm/s MV Pressure Half Time 67.6 ms MV Area PHT 3.3 cm MV Deceleration Time 217.0 ms TR Peak Velocity 260.0 cm/s TR Peak Gradient 27.0 mmHg Right Atrial Pressure 5.0 mmHg Pulmonary Artery Systolic Pressu 32.0 mmHg Right Ventricular Systolic Press 32.0 mmHg PV Peak Velocity 108.0 cm/s PV Peak Gradient 4.7 mmHg PV Mean Velocity 77.3 cm/s PV Mean Gradient 3.0 mmHg PV Velocity Time Integral 26.9 cm LV E' Lateral Velocity 16.4 cm/s Mitral E to LV E' Lateral Ratio 7.5 LV E' Septal Velocity 7.4 cm/s Mitral E to LV E' Septal Ratio 16.6
[2017-05-19 22:19] VITALS: BP 140/86
[2017-05-20 06:25] VITALS: BP 160/90
[2017-05-20 07:56] LABS: ABSOLUTE BASOPHIL COUNT 0 /CUMM (0.0-0.2); ABSOLUTE EOSINOPHIL COUNT 0 /CUMM (0.0-0.7); ABSOLUTE GRANULOCYTE CT 23.3 /CUMM (1.4-6.5); ABSOLUTE LYMPH COUNT 1.8 /CUMM (1.2-3.4); BASOPHIL % 0 % (0.0-2.0); EOSINOPHIL % 0 % (0-5); GRANULOCYTE % 89.4 % (42.2-75.2); HEMATOCRIT 37.5 % (37-47); MEAN CORPUSCULAR HGB 31.2 PG (27.0-31.0); MEAN CORPUSCULAR HGB CONC 32.6 G/DL (33.0-37.0); MEAN CORPUSCULAR VOLUME 95.8 FL (81.0-99.0); MEAN PLATELET VOLUME 9.5 FL (7.4-10.4); PLATELET COUNT 232 /CUMM (130-400); RBC DISTRIBUTION WIDTH 15.2 % (11.5-14.5); RED BLOOD CELL CT 3.91 /CUMM (4.20-5.40)
--- NOTE | 2017-05-20 08:21 | PN- Housestaff ---
MARIA GUADALUPE STERLING 05/20/17 0821: Subjective Follow-up For: -Acute supraglottitis -Opiate dependence -Hypertension -Anxiety Complaints: no complaints Subjective: Patient was seen and examined this morning. She is alert awake and oriented to time place and person. No acute events noticed overnight. She feels TIRED this morning. She was able to swallow without any difficulty or pain. She denied any drooling. She was able to tolerate reg diets. She denied any difficulty breathing, fever or chills, chest pain or discomfort. Vitals remained stable. Temperature 97.5, heart rate 63, respiratory rate 20, blood pressure 160/100, saturating at 91 on room air. Review of Systems Constitutional: Reports: no symptoms. Objective Last 24 Hrs of Vital Signs/I&O Vital Signs Date Time Temp Pulse Resp B/P B/P Pulse O2 O2 Flow FiO2 Mean Ox Delivery Rate 05/20 1435 97.5 74 18 144/80 94 Room Air 05/20 0953 73 152/90 05/20 0625 97.6 66 16 160/90 94 Room Air 05/19 2219 97.6 64 20 140/86 92 Room Air Intake & Output 05/20 1600 05/20 0800 05/20 0000 Intake Total 1180 800 Output Total Balance 1180 800 Intake, IV 700 800 Intake, Oral 480 Physical Exam General Appearance: Alert, Oriented X3, Cooperative, No Acute Distress Skin: No Rashes, No Breakdown HEENT: Atraumatic, PERRLA, EOMI, Mucous Membr. moist/pink Neck: Supple, No JVD, No thryomegaly Lymphatic: Cervical nl Cardiovascular: Normal S1, Normal S2 Lungs: Normal Air Movement Abdomen: Normal Bowel Sounds, Soft, No Tenderness Extremities: No Clubbing, No Cyanosis, No Edema Vascular: Pulses Symmetrical Current Medications: Current Medications Sig/Asia Start time Last Medication Dose Route Stop Time Status Admin Acetaminophen 650 MG .STK-MED ONE 05/19 2021 DC PO 05/19 2022 Acetaminophen 650 MG Q6P PRN 05/18 2115 AC 05/19 PO 2025 Amoxicillin/ 875 MG Q12 05/20 1000 AC 05/20 Clavulanate Potassium PO 0952 Ampicillin Sodium/ 3,000 MG Q6H 05/19 0400 DC 05/20 Sulbactam Sodium IV 0314 Sodium Chloride 100 ML Aripiprazole 10 MG DAILY 05/18 2049 AC 05/20 PO 0953 Clonazepam 1 MG TID 05/18 2200 AC 05/20 PO 05/25 2159 0952 Clonidine 0.2 MG TID 05/18 2200 AC 05/20 PO 0953 Enoxaparin Sodium 40 MG Q24H 05/18 2100 AC 05/19 SC 2026 Fluoxetine HCl 40 MG DAILY 05/18 2049 AC 05/20 PO 0952 Gabapentin 800 MG Q8 05/18 2200 AC 05/20 PO 1403 Ketorolac 15 MG Q6P PRN 05/18 2115 AC Tromethamine IV Methadone HCl 80 MG DAILY 05/19 1000 AC 05/20 PO 0955 Methylprednisolone 40 MG BID 05/20 1000 CAN IV Methylprednisolone 40 MG Q8 05/19 1501 DC 05/19 IV 05/19 Morphine Sulfate 2 MG Q4P PRN 05/18 2115 AC 05/18 IV 2220 Nicotine 14 MG DAILY 05/19 1000 AC 05/20 TOP 0956 Ondansetron HCl 4 MG Q6P PRN 05/18 2115 AC IV Prednisone 10 MG DAILY 05/25 1000 AC PO 05/26 0959 Prednisone 20 MG DAILY 05/24 1000 AC PO 05/25 0959 Prednisone 30 MG DAILY 05/23 1000 AC PO 05/24 0959 Prednisone 40 MG DAILY 05/22 1000 AC PO 05/23 0959 Prednisone 50 MG DAILY 05/21 1000 AC PO 05/22 0959 Prednisone 60 MG DAILY 05/20 1000 CAN PO 05/26 0959 Prednisone 60 MG DAILY 05/20 1000 AC 05/20 PO 05/21 0959 0953 Senna/Docusate Sodium 2 TAB AT BEDTIME PRN 05/18 2115 PO Sodium Chloride 1,000 ML .Q10H 05/18 2100 AC 05/20 IV 0307 Last 24 Hrs of Lab/Gino Results Last 24 Hrs of Labs/Mics: Laboratory Tests 05/20/17 0625: CBC w Diff MAN DIFF ORDERED, RBC 3.91 L, MCV 95.8, MCH 31.2 H, RDW 15.2 H, MPV 9.5, Gran % 89.4 H, Lymphocytes % 6.8 L, Monocytes % 3.8, Eosinophils % 0, Basophils % 0 L, Absolute Granulocytes 23.3 H, Segmented Neutrophils 85 H, Band Neutrophils 5, Absolute Lymphocytes 1.8, Lymphocytes 8 L, Monocytes 2, Absolute Monocytes 1.0 H, Absolute Eosinophils 0, Absolute Basophils 0, Platelet Estimate VERIFIED BY SMEAR, Anisocytosis 1+, PUBS MCHC 32.6 L Assessment/Plan Assessment: This is a 51-year-old female with past medical history significant for anxiety, depression, hypertension, neuropathy, bilateral knee replacements, opiate dependence on methadone, current smoker presented to the emergency room complaining of worsening dysphagia, odynophagia and high grade fever for 1 day. patient has very poor appetite due to her worsening dysphagia and odynophagia. she also developed drooling and eventually decided to come to emergency room for further evaluation. According to patient, she had a similar episode about 3 years ago, for which she was admitted at [facility] for 8 days. Patient recalls that she almost got intubated and her disease had a very protracted course. Today patient has very poor appetite due to her worsening dysphagia and odynophagia she also developed drooling and eventually decided to come to emergency room for further evaluation. Vitals on admission afebrile, heart rate 82, respiratory rate 18, blood pressure 128/78, saturating at 96 on room air Pertinent data: WBC 18.9 with 84% left shift no bandemia, H&H: 13/39, platelets 227. Sodium 134, potassium 4.3, chloride 96, BUN 10 creatinine 0.7. Rapid strep test: Negative. Neck x-ray IMPRESSION: Findings are consistent with epiglottitis. Problem list 1. Acute epiglottitis 2. Depression 3. Anxiety 4. Hypertension 5. Neuropathy 6. Opiate dependence Acute Epiglottitis/sepsis Patient presented to emergency department with worsening dysphagia, odynophagia associated with chills and rigors of 1 day duration. Also reported drooling. Was able to tolerate liquids but not solids. Spiked a temperature 102.5 associated with leukocytosis 19,000 on admission. She fulfilled SIRS criteria on admission and the possible source of sepsis might be throat. * She was admitted to general medicine floor for further management of epiglottitis * Monitor vitals closely every shift * Maintain oxygen saturations Above 90% * Closely monitor for fever, worsening leukocytosis * Rapid strep was negative * ENT was on board * Significantly mentions "No evidence of airway problems",. * Fiberoptic laryngoscopy findings: Nasopharynx erythematous. Hypopharynx- lingual surface of epiglottitis is edematous and extending to the left eye epiglottic fold. * She was started on IV antibiotics * Continued IV Unasyn for 2 days. Switch her to oral Augmentin today. * Continued IV methylprednisolone 40 mg every 12 hours to reduce inflammation, redness and swelling for 2 days. Switch her to oral prednisone, will taper prednisone. * Follow blood cultures-negative * TRC nebs * Pain management * Diet was advanced to regular, able to tolerate * Low threshold for intubation if symptoms worsens Depression Continue home medication abilify Continue home medication fluoxetine Anxiety Continue home medication clonazepem 1 mg 3 times a day Hypertension Continue home medication clonidine 0.2 mg 3 times a day nerve pain Continue gabapentin 800 mg 3 times a day Opiate dependence Remote history of pain medication dependence -currently on methadone( [facility]). Continue methadone 80 mg daily DVT prophylaxis subcutaneous Lovenox Regular diet Pain pathway Full code Problem List: 1. Epiglottitis 2. Supraglottitis Pain Ratin Pain Location: throat Pain Goal: Remain pain free Pain Plan: tylinol Tomorrow's Labs & Rationales: CbC in the setting of infection and epiglottitis MC RAMIREZ MD 05/20/17 1330: Attending MD Review Statement Attending Statement Attending MD Statement: examined this patient, discuss w/resident/PA/DIRECTOR DIETETICS DEPARTMENT, agreed w/resident/PA/DIRECTOR DIETETICS DEPARTMENT, reviewed EMR data (avail), discussed with nursing, discussed with case mgmt, reviewed images, amended to note Attending Assessment/Plan: Patient seen and examined, she said that she's not feeling that well today. She is complaining of some pain in her throat. She denies any difficulty swallowing as such. She was just little tired today. She is able to swallow both liquids and solids. Her vital signs remained stable. She remained afebrile. Blood pressure slightly high but could be related to pain but patient on clonidine. I agree with switching her to oral prednisone as well as oral antibiotic. Patient should be completing total of 10 day course of antibiotics as well as prednisone taper. Continue all other medications. If patient continues to improve she's a possible discharge tomorrow. She is on Lovenox for DVT prophylaxis.
[2017-05-20 14:35] VITALS: BP 144/80
[2017-05-20] MEDS ORDERED: AMOX-CLAV 875-1 EACH PO (16:31)
[2017-05-20] MEDS ORDERED: PREDNISONE10 M2 PO (16:31)
[2017-05-20 22:24] VITALS: BP 136/90
[2017-05-21 06:07] VITALS: BP 130/80
[2017-05-21 08:03] LABS: ABSOLUTE BASOPHIL COUNT 0.1 /CUMM (0.0-0.2); ABSOLUTE EOSINOPHIL COUNT 0 /CUMM (0.0-0.7); ABSOLUTE LYMPH COUNT 5.4 /CUMM (1.2-3.4); ABSOLUTE MONOCYTE COUNT 0.8 /CUMM (0.10-0.60); BASOPHIL % 0.3 % (0.0-2.0); EOSINOPHIL % 0.2 % (0-5); GRANULOCYTE % 71.6 % (42.2-75.2); MEAN CORPUSCULAR HGB 31.5 PG (27.0-31.0); MEAN CORPUSCULAR HGB CONC 33.3 G/DL (33.0-37.0); MEAN CORPUSCULAR VOLUME 94.8 FL (81.0-99.0); MEAN PLATELET VOLUME 9.3 FL (7.4-10.4); PLATELET COUNT 260 /CUMM (130-400); RBC DISTRIBUTION WIDTH 15.1 % (11.5-14.5); WHITE BLOOD CELL COUNT 22.3 /CUMM (4.8-10.8)
--- NOTE | 2017-05-21 08:33 | PN- Housestaff ---
MARIA GUADALUPE STERLING 05/21/17 0833: Subjective Follow-up For: -Acute supraglottitis -Opiate dependence -Hypertension -Anxiety Complaints: pain scale (0-10) Subjective: Patient was seen and examined this morning. She is alert awake and oriented to time place and person. No acute events noticed overnight. She feels much better this morning, willing to go home She was able to swallow without any difficulty or pain. She denied any drooling. She was able to tolerate reg diets. She denied any difficulty breathing, fever or chills, chest pain or discomfort. Vitals remained stable. Temperature 97.5, heart rate 63, respiratory rate 20, blood pressure 160/100, saturating at 91 on room air. Review of Systems Constitutional: Reports: no symptoms. Objective Last 24 Hrs of Vital Signs/I&O Vital Signs Date Time Temp Pulse Resp B/P B/P Pulse O2 O2 Flow FiO2 Mean Ox Delivery Rate 05/21 0849 65 140/90 05/21 0607 98.0 62 20 130/80 94 Room Air 05/20 2224 98.0 67 18 136/90 92 Room Air 05/20 2131 67 136/90 05/20 1602 63 140/80 05/20 1435 97.5 74 18 144/80 94 Room Air Intake & Output 05/21 1600 05/21 0800 05/21 0000 Intake Total 950 1080 Output Total Balance 950 1080 Intake, IV 400 600 Intake, Oral 550 480 Physical Exam General Appearance: Alert, Oriented X3, Cooperative, No Acute Distress Skin: No Rashes, No Breakdown HEENT: Atraumatic, PERRLA, EOMI, Mucous Membr. moist/pink Neck: Supple, No JVD, No thryomegaly Lymphatic: Axillary nl, Cervical nl Cardiovascular: Normal S1, Normal S2 Lungs: Normal Air Movement Abdomen: Normal Bowel Sounds, Soft, No Tenderness, No Hepatospenomegaly Neurological: Strength at 5/5 X4 Ext, Sensation Intact, Reflexes 2+ Extremities: No Clubbing, No Cyanosis, No Edema Vascular: Normal Pulses, Pulses Symmetrical Current Medications: Current Medications Sig/Asia Start time Last Medication Dose Route Stop Time Status Admin Acetaminophen 650 MG Q6P PRN 05/18 2115 AC 05/19 PO 2025 Amoxicillin/ 875 MG Q12 05/20 1000 AC 05/21 Clavulanate Potassium PO 0849 Aripiprazole 10 MG DAILY 05/18 2049 AC 05/21 PO 0849 Clonazepam 1 MG TID 05/18 2200 AC 05/21 PO 05/25 2159 0849 Clonidine 0.2 MG TID 05/18 2200 AC 05/21 PO 0849 Enoxaparin Sodium 40 MG Q24H 05/18 2100 AC 05/20 SC 2131 Fluoxetine HCl 40 MG DAILY 05/18 2049 AC 05/21 PO 0850 Gabapentin 800 MG Q8 05/18 2200 AC 05/21 PO 1328 Ketorolac 15 MG Q6P PRN 05/18 2115 AC 05/20 Tromethamine IV 1633 Methadone HCl 80 MG DAILY 05/19 1000 AC 05/21 PO 0850 Morphine Sulfate 2 MG Q4P PRN 05/18 2115 AC 05/18 IV 2220 Nicotine 14 MG DAILY 05/19 1000 AC 05/21 TOP 0853 Ondansetron HCl 4 MG Q6P PRN 05/18 2115 AC IV Prednisone 10 MG DAILY 05/25 1000 AC PO 05/26 0959 Prednisone 20 MG DAILY 05/24 1000 AC PO 05/25 0959 Prednisone 30 MG DAILY 05/23 1000 AC PO 05/24 0959 Prednisone 40 MG DAILY 05/22 1000 AC PO 05/23 0959 Prednisone 50 MG DAILY 05/21 1000 AC 05/21 PO 05/22 0959 0850 Prednisone 60 MG DAILY 05/20 1000 DC 05/20 PO 05/21 0959 0953 Senna/Docusate Sodium 2 TAB AT BEDTIME PRN 05/18 2115 AC PO Sodium Chloride 1,000 ML .Q10H 05/18 2100 AC 05/21 IV 0148 Last 24 Hrs of Lab/Gino Results Last 24 Hrs of Labs/Mics: Laboratory Tests 05/21/17 0650: CBC w Diff NO MAN DIFF REQ, RBC 3.90 L, MCV 94.8, MCH 31.5 H, RDW 15.1 H, MPV 9.3, Gran % 71.6, Lymphocytes % 24.4, Monocytes % 3.5, Eosinophils % 0.2, Basophils % 0.3, Absolute Granulocytes 16.0 H, Absolute Lymphocytes 5.4 H, Absolute Monocytes 0.8 H, Absolute Eosinophils 0, Absolute Basophils 0.1, PUBS MCHC 33.3 Assessment/Plan Assessment: This is a 51-year-old female with past medical history significant for anxiety, depression, hypertension, neuropathy, bilateral knee replacements, opiate dependence on methadone, current smoker presented to the emergency room complaining of worsening dysphagia, odynophagia and high grade fever for 1 day. patient has very poor appetite due to her worsening dysphagia and odynophagia. she also developed drooling and eventually decided to come to emergency room for further evaluation. According to patient, she had a similar episode about 3 years ago, for which she was admitted at [facility] for 8 days. Patient recalls that she almost got intubated and her disease had a very protracted course. Today patient has very poor appetite due to her worsening dysphagia and odynophagia she also developed drooling and eventually decided to come to emergency room for further evaluation. Vitals on admission afebrile, heart rate 82, respiratory rate 18, blood pressure 128/78, saturating at 96 on room air Pertinent data: WBC 18.9 with 84% left shift no bandemia, H&H: 13/39, platelets 227. Sodium 134, potassium 4.3, chloride 96, BUN 10 creatinine 0.7. Rapid strep test: Negative. Neck x-ray IMPRESSION: Findings are consistent with epiglottitis. Problem list 1. Acute epiglottitis 2. Depression 3. Anxiety 4. Hypertension 5. Neuropathy 6. Opiate dependence Acute Epiglottitis/sepsis Patient presented to emergency department with worsening dysphagia, odynophagia associated with chills and rigors of 1 day duration. Also reported drooling. Was able to tolerate liquids but not solids. Spiked a temperature 102.5 associated with leukocytosis 19,000 on admission. She fulfilled SIRS criteria on admission and the possible source of sepsis might be throat. * She was admitted to general medicine floor for further management of epiglottitis * Monitor vitals closely every shift * Maintain oxygen saturations Above 90% * Closely monitor for fever, worsening leukocytosis * Rapid strep was negative * ENT was on board * Significantly mentions "No evidence of airway problems",. * Fiberoptic laryngoscopy findings: Nasopharynx erythematous. Hypopharynx- lingual surface of epiglottitis is edematous and extending to the left eye epiglottic fold. * She was started on IV antibiotics * Continued IV Unasyn for 2 days. SwitchED her to oral Augmentin. We'll discharge her on augmentin for 7 more days to complete 10 days course * Continued IV methylprednisolone 40 mg every 12 hours to reduce inflammation, redness and swelling for 2 days. Switched her to oral prednisone, will taper prednisone. * Follow blood cultures-negative * TRC nebs * Pain management * Diet was advanced to regular, able to tolerate * Low threshold for intubation if symptoms worsens Depression Continue home medication abilify Continue home medication fluoxetine Anxiety Continue home medication clonazepem 1 mg 3 times a day Hypertension Continue home medication clonidine 0.2 mg 3 times a day nerve pain Continue gabapentin 800 mg 3 times a day Opiate dependence Remote history of pain medication dependence -currently on methadone( [facility]). Continue methadone 80 mg daily DVT prophylaxis subcutaneous Lovenox Regular diet Pain pathway Full code Problem List: 1. Epiglottitis Pain Ratin Pain Location: N/A Pain Goal: Remain pain free Pain Plan: TYLENOL On methadone Tomorrow's Labs & Rationales: NONE ASHLEY MARTINEZ,MC 05/21/17 1155: Attending MD Review Statement Attending Statement Attending MD Statement: examined this patient, discuss w/resident/PA/UNIX ANALYST, agreed w/resident/PA/UNIX ANALYST, reviewed EMR data (avail), discussed with nursing, discussed with case mgmt, reviewed images, amended to note Attending Assessment/Plan: Patient seen and examined, overall feeling much better. Pain in the throat has been resolved. She has no difficulty swallowing. She remains afebrile. She has leukocytosis but that is likely secondary to steroids. Although it has improved from before. Patient is medically stable for discharge home today. She will be discharged on oral antibiotics, oral prednisone taper. Patient to follow-up with her primary care doctor as well as ENT as an outpatient. The rest of her home medications will be continued.
[2017-05-21 08:49] VITALS: BP 140/90
[2017-05-21] MEDS ORDERED: NICOTINE PATCH1 EAC3 TOP ×2 (08:51→10:29)
[2017-05-21] MEDS ORDERED: AMOX-CLAV 875-1 EACH PO (10:29)
[2017-05-21] MEDS ORDERED: PREDNISONE10 M2 PO (10:29)
--- NOTE | 2017-05-21 14:24 | Discharge Summary ---
Visit Information Visit Dates Admission Date: 05/18/17 Discharge Date: 05/21/17 Hospital Course Course Attending Physician: DANAY LOPEZ MD Primary Care Physician: ROSIBEL BOOTH APRN Consulting Request: Consulting Specialty: Otorhinolaryngology Hospital Course: This is a 51-year-old female with past medical history significant for anxiety, depression, hypertension, neuropathy, bilateral knee replacements, opiate dependence on methadone, current smoker presented to the emergency room complaining of worsening dysphagia, odynophagia and high grade fever for 1 day. patient has very poor appetite due to her worsening dysphagia and odynophagia. she also developed drooling and eventually decided to come to emergency room for further evaluation. According to patient, she had a similar episode about 3 years ago, for which she was admitted at [facility] for 8 days. Patient recalls that she almost got intubated and her disease had a very protracted course. Vitals on admission afebrile, heart rate 82, respiratory rate 18, blood pressure 128/78, saturating at 96 on room air Pertinent data: WBC 18.9 with 84% left shift no bandemia, H&H: 13/39, platelets 227. Sodium 134, potassium 4.3, chloride 96, BUN 10 creatinine 0.7. Rapid strep test: Negative. Neck x-ray IMPRESSION: Findings are consistent with epiglottitis. Problem list 1. Acute epiglottitis 2. Depression 3. Anxiety 4. Hypertension 5. Neuropathy 6. Opiate dependence Acute Epiglottitis/sepsis Patient presented to emergency department with worsening dysphagia, odynophagia associated with chills and rigors of 1 day duration. Also reported drooling. Was able to tolerate liquids but not solids.she Spiked a temperature 102.5 associated with leukocytosis 19,000 on admission. She fulfilled SIRS criteria on admission and the possible source of sepsis might be throat. Neck X-ray findings suggestive of epiglottitis and supraglottitis. She was admitted to general medicine floor for further management of epiglottitis. We monitored her vitals every shift and maintain oxygen saturations greater than 90%. She was monitored for fever, leukocytosis. Rapid strep test was negative. There is no evidence of airway problems. Fiberoptic laryngoscopy findings: Nasopharynx erythematous. Hypopharynx- lingual surface of epiglottitis is edematous and extending to the left eye epiglottic fold. She was started on IV antibiotics. She was on IV Unasyn for 2 days and later switched her to oral Augmentin. She was discharged on oral Augmentin 875 mg twice a day for 7 more days to complete 10 day course. She received IV steroids in the hospital. She was discharged on oral prednisone 50 for 1 day, 40 for 1 day, 30 for 1 day, 20 for 1 day, 10 for 1 day. Cultures remained negative. Her diet was advanced to regular and she was able to tolerate her diet with no complaints. She remained afebrile at the time of discharge. However her WBC count was high possibly from steroids. Depression Continued home medication abilify Continued home medication fluoxetine Anxiety Continued home medication clonazepem 1 mg 3 times a day Hypertension Continued home medication clonidine 0.2 mg 3 times a day nerve pain Continued gabapentin 800 mg 3 times a day Opiate dependence Remote history of pain medication dependence -currently on methadone( [facility]). Continued methadone 80 mg daily in the hospital. DVT prophylaxis subcutaneous Lovenox Regular diet Pain pathway Full code Complications: none Allergies: Coded Allergies: cephalexin (From KEFLEX) (ANAPHYLAXIS 01/11/17) Significant Procedures: none Pertinent Lab Results: echo - CONCLUSIONS 1. Aortic sclerosis is present with no valvular stenosis or insufficiency. 2. Mitral leaflet thickening is present with minimal to mild mitral insufficiency but no definite valvular prolapse. Mild anular calcification is also noted. 3. There is no pericardial fluid detected. 4. The left ventricular chamber size and systolic function appear normal. 5. Mild tricuspid insufficiency is present with no evidence of pulmonary hypertension Soft tissue neck x-ray FINDINGS: There is abnormal thickening and rounded appearance of the epiglottis with mild prominence of the aryepiglottic fold, suspicious for epiglottitis. No prevertebral soft tissue swelling is seen. No significant enlargement of the adenoids or tonsils is appreciated. No soft tissue calcifications are seen. There is a minimal convex left cervical scoliosis with mild vertebral spondylosis at C5 and C6 and mild diffuse spurring at the lateral masses, most prominent at C2-C3 and C3-C4. IMPRESSION: Findings are consistent with epiglottitis. Disposition Summary Disposition Principal Diagnosis: -Acute supraglottitis/epiglottitis -Opiate dependence -Hypertension -Anxiety Additional Diagnosis: NONE Discharge Disposition: home or self care Discharge Instructions General Discharge Information Code Status: Full Code Patient's Diet: As tolerated Patient's Activity: As tolerated Follow-Up Instructions/Appts: Follow-up with your primary care doctor within 1 week after discharge Follow-up with ent doctor within 1 week after discharge Medications at Discharge Discharge Medications: Continue taking these medications: Clonidine HCl (Clonidine HCl) 0.2 MG TABLET 1 Tablet ORAL THREE TIMES DAILY Comments: Last Taken:05/21/17 Time:0900 Clonazepam (Clonazepam) 1 MG TABLET 1 Tablet ORAL THREE TIMES DAILY Comments: Last Taken:05/21/17 Time:0900 Fluoxetine HCl (Prozac) 40 MG CAPSULE 1 Capsule ORAL DAILY Comments: Last Taken:05/21/17 Time:0900 Aripiprazole (Abilify) 10 MG TABLET 1 Tablet ORAL DAILY Comments: Last Taken:05/21/17 Time:0900 Methadone HCl (Dolophine HCl) 10 MG TABLET 80 Milligram ORAL DAILY Comments: Last Taken:05/21/17 Time:0900 Gabapentin (Neurontin) 800 MG TABLET 1 Tablet ORAL THREE TIMES DAILY Comments: Last Taken:05/21/17 Time:1:45 PM Start taking the following new medications: Amoxicillin/Clavulanate Potass (Amox-Clav 875-125 MG Tablet) 875 MG-125 MG TABLET 875 Milligram ORAL EVERY 12 HOURS Qty = 14 No Refills Instructions: . Comments: Last Taken:05/21/17 Time:0900 Nicotine (Nicotine Patch) 21 MG/24 HOUR PATCH.TD24 1 Patch On the skin DAILY Qty = 28 No Refills Instructions: . Comments: Last Taken:05/21/17 Time:0900 Prednisone (Prednisone) 10 MG TABLET 1 Tablet ORAL See Instructions Qty = 10 No Refills Instructions: take 4tablets on 05/22 take 3tablets on 05/23 take 2tablets on 05/24 take 1tablet on 05/25 Comments: Last Taken:05/21/17 Time:0900 Copies To: ROSIBEL BOOTH APRN
== END 2017-05-21 15:40 | DRG 113 ==
LOC: ERH 14:22 → 2NA 17:17 → ERHI 17:17 → 2NA 17:17 → ENRESERV 18:06 → ENTRNSPT 18:56 → EDTRNSPT 19:33 → 2NA 20:00 → CMPTRNSPT 20:16 → 2NA 05-19 17:09 → ENPENDDIS 05-21 11:11 → 2NA 05-21 15:40
PROVIDERS: Hospitalist; Physician Assistant Medical; ADMIT Internal Medicine
PROC: 0CJS8ZZ Inspection of Larynx, Via Natural or Artificial Opening Endoscopic (ICD-10-PCS; principal; 2017-05-18)
DX: J04.30 Supraglottitis, unspecified, without obstruction (principal); A41.9 Sepsis, unspecified organism; F17.210 Nicotine dependence, cigarettes, uncomplicated; F41.9 Anxiety disorder, unspecified; I10 Essential (primary) hypertension; Z96.653 Presence of artificial knee joint, bilateral; F11.20 Opioid dependence, uncomplicated; F32.9 Major depressive disorder, single episode, unspecified; R63.0 Anorexia; G89.29 Other chronic pain; M54.9 Dorsalgia, unspecified; R01.1 Cardiac murmur, unspecified
CPT/HCPCS: 2NASP; 36415; 70360; 80307; 81001; 82436; 87040; 87071; 87086; 93306; J0401; J1100; J1650; J1885; J2405; J2920; J7040

== ENCOUNTER 2018-01-22 16:34 | Emergency (ER) | payer OTHER ==
[~2018-01-22 16:34] MED LIST changes: +ADVAIR 100-501 EACH INH; +AMOX-CLAV 875-1 EACH PO; +CYCLOBENZAPRINE10 M1 PO; +DOXYCYCLINE HY100 M2 PO; +LASIX20 M1 PO; +MOBIC15 M1 PO; +NEURONTIN800 M2 PO; +NICOTINE PATCH1 EAC3 TOP; +PREDNISONE10 M2 PO; +PROAIR HFA8.5 GM INH; +TESSALON PERLE100 M1 PO
--- NOTE | 2018-01-22 16:50 | ED GENERAL ADULT ---
History of Present Illness General Chief Complaint: General Adult Stated Complaint: PT WAS NOT FEELING CHAPPELL Source: patient Exam Limitations: clinical condition Vital Signs & Intake/Output Vital Signs & Intake/Output Vital Signs Date Time Temp Pulse Resp B/P B/P Pulse O2 O2 Flow FiO2 Mean Ox Delivery Rate 01/22 1835 97.8 70 12 116/60 97 Room Air 01/22 1643 98.4 01/22 1639 72 16 119/62 98 Room Air Allergies Coded Allergies: cephalexin (From KEFLEX) (ANAPHYLAXIS 01/11/17) Reconcile Medications Aripiprazole (Abilify) 10 MG TABLET 1 TAB PO DAILY MENTAL HEALTH (Reported) Clonazepam 1 MG TABLET 1 TAB PO TID ANXIETY (Reported) Clonidine HCl 0.2 MG TABLET 1 TAB PO TID BP (Reported) Fluoxetine HCl (Prozac) 40 MG CAPSULE 1 CAP PO DAILY MENTAL HEALTH (Reported) Furosemide (Lasix) 20 MG TABLET 1 TAB PO DAILY DIURETIC (Reported) Gabapentin (Neurontin) 800 MG TABLET 1 TAB PO TID MENTAL HEALTH/NERVE PAIN ( Reported) Methadone HCl (Dolophine HCl) 10 MG TABLET 80 MG PO DAILY OPIATE DEPENDENCE ( Reported) Triage Note: PT TO ED WITH DAUGHTER WITH REPORT OF INCREASED CONFUSION, BACK PAIN AND BILAT EAR PAIN FOR THE PAST FEW DAYS. PT WITH WITNESSED SEIZURE-LIKE ACTIVITY AT TRIAGE. PT FELL TO FLOOR, WITNESSED BY STAFF. C-COLLAR PLACED S/P FALL. PT NOW A/O X 4 DURING TRIAGE. Triage Nurses Notes Reviewed? yes Onset: Abrupt Duration: hour(s): Timing: recent history HPI: 01/22/18 5 PM 52-year-old female presents to the emergency department complaining of cough and congestion. She felt weak in the waiting room and collapsed having a questionable seizure. There was a brief period of unresponsiveness followed by no postictal period. She complains of headache, neck pain, back pain. (Blanco Russell DO) Past History Travel History Traveled to [place] past 21 day No Medical History Any Pertinent Medical History? 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 No (Blanco Russell DO) Review of Systems Review of Systems Constitutional: Denies: fever. EENTM: Denies: visual changes. Respiratory: Denies: short of breath. Cardiovascular: Denies: chest pain. GI: Denies: abdominal pain. Genitourinary: Reports: no symptoms. Musculoskeletal: Reports: see HPI. Skin: Denies: rash. Neurological/Psychological: Reports: headache. Hematologic/Endocrine: Denies: bruising. Immunologic/Allergic: Reports: no symptoms. (Blanco Russell DO) Physical Exam Physical Exam General Appearance: alert, awake, anxious, mild distress Head: atraumatic, normal appearance Eyes: Bilateral: normal appearance, PERRL, EOMI. Ears, Nose, Throat: normal pharynx, normal ENT inspection Neck: normal inspection, supple Respiratory: normal breath sounds, chest non-tender, no respiratory distress Cardiovascular: regular rate/rhythm Peripheral Pulses: 4+ radial (R), 4+ radial (L) Gastrointestinal: soft, non-tender Back: vertebral tenderness Extremities: no edema Neurologic/Psych: no motor/sensory deficits, awake, alert, oriented x 3 Skin: intact, normal color, warm/dry Core Measures ACS in differential dx? No CVA/TIA Diagnosis: No Sepsis Present: No Sepsis Focused Exam Completed? No (Blanco Russell DO) Progress Differential Diagnoses I considered the following diagnoses in my evaluation of the patient: [Seizure, pseudoseizure, substance abuse, concussion, viral syndrome] Plan of Care: Orders Procedure Date/time Status Add-on Test (ER Only) 01/22 1814 Active URINE DRUG SCREEN FOR ER ONLY 01/22 1814 Complete ETHANOL 01/22 1702 Complete TROPONIN LEVEL 01/22 1646 Complete COMPREHENSIVE METABOLIC PANEL 01/22 1646 Complete CBC WITHOUT DIFFERENTIAL 01/22 1646 Complete EKG 01/22 1638 Active Laboratory Tests 01/22/18 1915: Urine Opiates Screen < 100.00, Methadone Screen > 735 H, Barbiturate Screen < 60, Ur Phencyclidine Scrn 7.70, Amphetamines Screen < 100, U Benzodiazepines Scrn > 800 H, Urine Cocaine Screen < 50, Urine Cannabis Screen < 5.00 01/22/18 1702: Anion Gap 5, Estimated GFR > 60, BUN/Creatinine Ratio 25.0, Glucose 86, Calcium 9.1, Total Bilirubin 0.2, AST 48 H, ALT 34, Alkaline Phosphatase 95, Troponin I < 0.01, Total Protein 6.5, Albumin 3.5, Globulin 3.0, Albumin/Globulin Ratio 1.2 , CBC w Diff NO MAN DIFF REQ, RBC 4.00 L, MCV 94.6, MCH 31.1 H, MCHC 32.8 L, RDW 14.1, MPV 8.6, Gran % 48.4, Lymphocytes % 41.7, Monocytes % 5.9, Eosinophils % 3.7, Basophils % 0.3, Absolute Granulocytes 5.0, Absolute Lymphocytes 4.3 H, Absolute Monocytes 0.6, Absolute Eosinophils 0.4, Absolute Basophils 0, Serum Alcohol < 10.0 PATIENT: ASHLEY ESTRELLA PRESENT AGE: 52 PATIENT ACCOUNT NO: [id number] : 65 LOCATION: [facility] ORDERING PHYSICIAN: Blanco Russell DO SERVICE DATE: 01/22/18 EXAM TYPE: CAT - CT LUMB SPINE WO IV CONTRAST EXAMINATION: CT LUMBAR SPINE WITHOUT CONTRAST CLINICAL INFORMATION: History of fall. Trauma to the head. Complaining of back pain. COMPARISON: None TECHNIQUE: Helical non-contrast CT images were obtained through the lumbar spine and 1.25 and 2.5 mm axial reconstructions were reviewed along with sagittal and coronal MPRs. DLP: 1177.56 mGy-cm FINDINGS: The height, and alignment of the lumbar vertebrae are well maintained. Decreased disc height, subchondral sclerosis, osteophyte formations, intradiscal gas formation, consistent with moderate degenerative spondylosis-related changes are noted at L4-L5 and L5-S1. Milder degenerative spondylosis noted at the remainder of the lumbar and lower visualized thoracic spine. The posterior appendages are intact. Significant facet degenerative arthritic changes are noted bilaterally. There is no paraspinal soft tissue hematoma identified. Subtle subcutaneous stranding is noted overlying the posterior paraspinal muscles, may represent post-traumatic edema, hemorrhage. The visualized part of the urinary bladder, bowel loops, the visualized retroperitoneum appear unremarkable. Mild atherosclerotic disease is noted within the aorta and its branches. Visualized part of the liver, both adrenal glands, both kidneys also appear unremarkable. There is no free fluid and/or free air identified within the visualized pelvis. Incidental note is made of mild degenerative osteoarthrosis at both SI joints (right greater than left). IMPRESSION: No CT evidence of any acute post-traumatic changes identified within the lumbosacral spine. Incidental note is made of mild soft tissue stranding within the lower posterior subcutaneous fat plane overlying the lower lumbosacral spine, may represent post-traumatic edema, hemorrhage. DICTATED BY: Lukas Beal MD DATE/TIME DICTATED:01/22/181742 DIRECTOR OF CUSTOMER ACQUISITION:MARNIE DATE/TIME TRANSCRIBED:01/22/181742 CONFIDENTIAL, DO NOT COPY WITHOUT APPROPRIATE AUTHORIZATION. <Electronically signed in Other Vendor System> SIGNED BY: Lukas Beal MD 01/22/18 1811 Initial ED EKG: NSR (Blanco Russell DO) Departure Departure Disposition: STILL A PATIENT Condition: Stable Referrals: Ivory MARTINEZ,Marivel Alvarez (PCP/Family) Departure Forms: Customer Survey General Discharge Information Comments 01/22/18 The patient was signed out to Dr. Lora at 7 PM. She is pending urine toxicology and reevaluation. (Blanco Russell DO) Departure Clinical Impression Primary Impression: Headache Secondary Impressions: Back pain affecting , Medication side effects, Syncope Comments 01/22/18, 20:04.... uds notable for elevations in benzos and methadone. Pt reports that she took xanax earlier today from a friend. I discussed with her the dangers of taking medications that were not prescribed and the combination in particular of methadone and benzos. Pt has a neurologist. She is awake and alert, cogent, coherent. She would like to go home. She is safe for discharge. (Guido MARTINEZ,Hebert Avitia) Critical Care Note Critical Care Note Critical Care Time: non-applicable (Blanco Russell DO)
[2018-01-22 17:22] LABS: ABSOLUTE BASOPHIL COUNT 0 /CUMM (0.0-0.2); ABSOLUTE EOSINOPHIL COUNT 0.4 /CUMM (0.0-0.7); ABSOLUTE LYMPH COUNT 4.3 /CUMM (1.2-3.4); ABSOLUTE MONOCYTE COUNT 0.6 /CUMM (0.10-0.60); BASOPHIL % 0.3 % (0.0-2.0); EOSINOPHIL % 3.7 % (0-5); GRANULOCYTE % 48.4 % (42.2-75.2); HEMATOCRIT 37.8 % (37-47); MEAN CORPUSCULAR HGB 31.1 PG (27.0-31.0); MEAN CORPUSCULAR HGB CONC 32.8 G/DL (33.0-37.0); MEAN CORPUSCULAR VOLUME 94.6 FL (81.0-99.0); MEAN PLATELET VOLUME 8.6 FL (7.4-10.4); PLATELET COUNT 257 /CUMM (130-400); RBC DISTRIBUTION WIDTH 14.1 % (11.5-14.5); WHITE BLOOD CELL COUNT 10.4 /CUMM (4.8-10.8)
--- NOTE | 2018-01-22 17:47 | CT SCAN REPORT ---
EXAMINATIONS: CT HEAD WITHOUT CONTRAST AND CT CERVICAL SPINE WITHOUT CONTRAST CLINICAL INFORMATION: Status post fall, trauma COMPARISON: CT head and C-spine 07/31/2017 TECHNIQUE: Contiguous helical images of the brain were obtained without IV contrast. Contiguous helical images of the cervical spine were obtained without IV contrast. Multiplanar reconstructions were performed. DLP: 1130 mGy-cm FINDINGS: There are no pathologic extra-axial fluid collections. The lateral, third, fourth ventricles are nondilated and concordant with the appearance of the sulci. There is no evidence for acute intraparenchymal hemorrhage or infarct. There is neither mass nor mass effect. There is no shift of midline structures. The paranasal sinuses and mastoid air cells are clear. There are no osseous lesions. Mild reversal of the normal cervical lordosis is likely positional. Mild cervical spondylosis is unchanged compared to 07/31/2017. There are no fractures. There is no prevertebral soft tissue swelling. Normal thyroid gland. The visualized lung apices are clear. Mosaic ventilation noted. IMPRESSION: 1. No acute intracranial hemorrhage. 2. Trace amount of fluid within the right maxillary sinus. Correlate clinically. 3. No acute fracture subluxation of the cervical spine. Mild cervical spondylosis, unchanged compared to 07/31/2017.
--- NOTE | 2018-01-22 18:11 | CT SCAN REPORT ---
EXAMINATION: CT LUMBAR SPINE WITHOUT CONTRAST CLINICAL INFORMATION: History of fall. Trauma to the head. Complaining of back pain. COMPARISON: None TECHNIQUE: Helical non-contrast CT images were obtained through the lumbar spine and 1.25 and 2.5 mm axial reconstructions were reviewed along with sagittal and coronal MPRs. DLP: 1177.56 mGy-cm FINDINGS: The height, and alignment of the lumbar vertebrae are well maintained. Decreased disc height, subchondral sclerosis, osteophyte formations, intradiscal gas formation, consistent with moderate degenerative spondylosis-related changes are noted at L4-L5 and L5-S1. Milder degenerative spondylosis noted at the remainder of the lumbar and lower visualized thoracic spine. The posterior appendages are intact. Significant facet degenerative arthritic changes are noted bilaterally. There is no paraspinal soft tissue hematoma identified. Subtle subcutaneous stranding is noted overlying the posterior paraspinal muscles, may represent post-traumatic edema, hemorrhage. The visualized part of the urinary bladder, bowel loops, the visualized retroperitoneum appear unremarkable. Mild atherosclerotic disease is noted within the aorta and its branches. Visualized part of the liver, both adrenal glands, both kidneys also appear unremarkable. There is no free fluid and/or free air identified within the visualized pelvis. Incidental note is made of mild degenerative osteoarthrosis at both SI joints (right greater than left). IMPRESSION: No CT evidence of any acute post-traumatic changes identified within the lumbosacral spine. Incidental note is made of mild soft tissue stranding within the lower posterior subcutaneous fat plane overlying the lower lumbosacral spine, may represent post-traumatic edema, hemorrhage.
[2018-01-22 18:35] VITALS: BP 116/60
== END 2018-01-22 20:24 ==
LOC: ERH 16:34
PROVIDERS: Emergency Medicine
DX: T50.995A Adverse effect of other drugs, medicaments and biological substances, initial encounter (principal); R51 Headache; M54.9 Dorsalgia, unspecified
CPT/HCPCS: 80307; 93005; 93010; 96374; G0480; J0131

== ENCOUNTER 2018-01-24 15:40 | Emergency (ER) | payer OTHER ==
[~2018-01-24] VITALS: Ht 160 cm; Wt 96.2 kg
--- NOTE | 2018-01-24 17:32 | ED UPPER/LOWER EXTREMITY COMPL ---
History of Present Illness General Chief Complaint: General Adult Stated Complaint: PER PT"HERE 01/21 NOW INFECTED IV SITE?" Source: patient Exam Limitations: no limitations Vital Signs & Intake/Output Vital Signs & Intake/Output Vital Signs Date Time Temp Pulse Resp B/P B/P Pulse O2 O2 Flow FiO2 Mean Ox Delivery Rate 01/24 1953 98.0 81 16 115/71 98 Room Air 01/24 1602 97.9 79 14 108/70 97 Room Air ED Intake and Output 01/25 0000 01/24 1200 Intake Total Output Total Balance Patient 212 lb Weight Allergies Coded Allergies: cephalexin (From KEFLEX) (ANAPHYLAXIS 01/11/17) Reconcile Medications Aripiprazole (Abilify) 10 MG TABLET 1 TAB PO DAILY MENTAL HEALTH (Reported) Clonazepam 1 MG TABLET 1 TAB PO TID ANXIETY (Reported) Clonidine HCl 0.2 MG TABLET 1 TAB PO TID BP (Reported) Fluoxetine HCl (Prozac) 40 MG CAPSULE 1 CAP PO DAILY MENTAL HEALTH (Reported) Furosemide (Lasix) 20 MG TABLET 1 TAB PO DAILY DIURETIC (Reported) Gabapentin (Neurontin) 800 MG TABLET 1 TAB PO TID MENTAL HEALTH/NERVE PAIN ( Reported) Methadone HCl (Dolophine HCl) 10 MG TABLET 80 MG PO DAILY OPIATE DEPENDENCE ( Reported) Sulfamethoxazole/Trimethoprim (Bactrim Ds Tablet) 800 MG-160 MG TABLET 1 TAB PO BID cellulitis Triage Note: 52F SIB WALK IN FOR INFECTION TO LAC WHICH HAS GROWN ERYTHEMATOUS, WARM TO TOUCH. NO DRAINAGE TO SITE. AFEBRILE. BORDERS MARKED WITH SURGICAL PEN IN TRIAGE. Triage Nurses Notes Reviewed? yes Onset: Abrupt Duration: day(s): (FEW), constant, continues in ED Timing: recent history Severity: mild, moderate Pain/Injury Location: Left: Arm. HPI: 53-year-old female comes into emergency room for further evaluation of redness to left antecubital area. She reports that she was seen here recently and had an IV in the area. She now has some swelling and redness for the past few days. She denies any fever chills vomiting. Denies any other associated symptoms. (John Paul Robison) Past History Travel History Traveled to [place] past 21 day No Medical History Any Pertinent Medical History? 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 No (John Paul Robison) Review of Systems Review of Systems Constitutional: Reports: no symptoms. EENTM: Reports: no symptoms. Respiratory: Reports: no symptoms. Cardiovascular: Reports: no symptoms. Gastrointestinal/Abdominal: Reports: no symptoms. Genitourinary: Reports: no symptoms. Musculoskeletal: Reports: see HPI. Skin: Reports: see HPI. Neurological/Psychological: Reports: no symptoms. Hematologic/Endocrine: Reports: no symptoms. Immunological: Reports: no symptoms. All Other Systems: Reviewed and Negative (John Paul Robison) Physical Exam Physical Exam General Appearance: well developed/nourished, mild distress Head: atraumatic Eyes: Bilateral: normal appearance. Ears, Nose, Throat: normal ENT inspection, hearing grossly normal Neck: normal inspection Cardiovascular/Respiratory: no respiratory distress Back: normal inspection Elbow Left: ERTYHEMA WARMTH TO LEFT ANTECUBITS, , FULL RANGE MOTION OF ELBOW, RADIAL PULSE INTACT Neurologic/Tendon: normal sensation, normal motor functions, normal tendon functions, responds to pain, no evidence tendon injury, no pulse deficit Skin: intact, normal color, warm/dry Lymphatic: no anterior cervical shreyas (John Paul Robison) Progress Differential Diagnosis: cellulitis, DVT, septic arthritis, SUPERFICIAL THROMBOPHLEBITIS Plan of Care: Orders Procedure Date/time Status UNILATERAL EXTREMITY VENOGRAM 01/24 1731 Active Diagnostic Imaging: Viewed by Me: Ultrasound. Discussed w/RAD: Ultrasound. Radiology Impression: PATIENT: ASHLEY ESTRELLA PRESENT AGE: 52 PATIENT ACCOUNT NO: [id number] : 65 LOCATION: [facility] ORDERING PHYSICIAN: John Paul URRUTIA SERVICE DATE: 01/24/18 EXAM TYPE: US - US -UNILATERAL VENOUS DOPPLER EXAMINATION: UNILATERAL TRIPLEX SCANNING OF THE RIGHT UPPER EXTREMITY CLINICAL INFORMATION: Right upper extremity swelling. COMPARISON : None. TECHNIQUE: Color-flow triplex imaging with spectral analysis and compression Doppler were performed on the right upper extremity. FINDINGS: Respiratory variation, normal compression and augmented flow are noted throughout the upper extremity. The visualized internal jugular vein, subclavian vein, axillary vein, cephalic vein, basilic vein, brachial vein, median cubital vein and forearm venous segments show no evidence of deep venous thrombosis. IMPRESSION: Normal triplex scan without evidence of deep venous thrombosis involving the right upper extremity. DICTATED BY: Miguel Pimentel MD DATE/ TIME DICTATED:01/24/181940 REPRODUCTION PRODUCTION MANAGER:MARNIE DATE/TIME TRANSCRIBED: 01/24/181940 CONFIDENTIAL, DO NOT COPY WITHOUT APPROPRIATE AUTHORIZATION. < Electronically signed in Other Vendor System> SIGNED BY: Miguel Pimentel MD 01/24/181944 (John Paul Robison) Departure Departure Disposition: HOME OR SELF CARE Condition: Stable Clinical Impression Primary Impression: Superficial thrombophlebitis Secondary Impressions: Cellulitis Referrals: Ivory MARTINEZ,Marivel Alvarez (PCP/Family) Additional Instructions: take keflex as prescribed. warm comnpresses. return for wound check in 2 days between 5-8 pm for wound recheck. take 81 mg aspirin daily. return sooner if any concerns/worsening of symptoms. Departure Forms: Customer Survey General Discharge Information Prescriptions: Current Visit Scripts Sulfamethoxazole/Trimethoprim (Bactrim Ds Tablet) 1 TAB PO BID #14 TAB Comments 01/24/2018 8:28:13 PM Patient clinically looks well. Symptoms are most consistent with superficial thrombophlebitis with secondary cellulitis. Started on oral meds. Warm compresses. 81 mg aspirin tablet. Patient will return in 2 days for a wound check. (John Paul Robison) PA/REFINERY OPERATOR HELPER Co-Sign Statement Statement: ED Attending supervision documentation- I saw and evaluated the patient. I have also reviewed all the pertinent lab results and diagnostic results. I agree with the findings and the plan of care as documented in the PA's/REFINERY OPERATOR HELPER's documentation. x I have reviewed the ED Record and agree with the PA's/REFINERY OPERATOR HELPER's documentation. [] Additions or exceptions (if any) to the PAs/REFINERY OPERATOR HELPER's note and plan are summarized below: [] (Tammy MARTINEZ,Jean)
[2018-01-24] MEDS ORDERED: BACTRIM DS TAB1 EACH PO (19:40)
--- NOTE | 2018-01-24 19:45 | ULTRASOUND REPORT ---
EXAMINATION: UNILATERAL TRIPLEX SCANNING OF THE RIGHT UPPER EXTREMITY CLINICAL INFORMATION: Right upper extremity swelling. COMPARISON: None. TECHNIQUE: Color-flow triplex imaging with spectral analysis and compression Doppler were performed on the right upper extremity. FINDINGS: Respiratory variation, normal compression and augmented flow are noted throughout the upper extremity. The visualized internal jugular vein, subclavian vein, axillary vein, cephalic vein, basilic vein, brachial vein, median cubital vein and forearm venous segments show no evidence of deep venous thrombosis. IMPRESSION: Normal triplex scan without evidence of deep venous thrombosis involving the right upper extremity.
[2018-01-24 19:53] VITALS: BP 115/71
== END 2018-01-24 19:55 ==
LOC: ERH 15:40
DX: I80.8 Phlebitis and thrombophlebitis of other sites (principal); L03.114 Cellulitis of left upper limb

== ENCOUNTER 2018-03-31 14:59 | Emergency (ER) | payer OTHER ==
[~2018-03-31 14:59] MED LIST changes: +BACTRIM DS TAB1 EACH PO
[2018-03-31] MEDS ORDERED: MEDROL4 M2 PO (17:05)
[2018-03-31] MEDS ORDERED: VICODIN 5-3001 EACH PO (17:05)
[2018-03-31] MEDS ORDERED: MOBIC15 M1 PO (17:05)
--- NOTE | 2018-03-31 17:07 | ED NECK/BACK PAIN COMPLAINT ---
History of Present Illness General Chief Complaint: Low Back Pain/Injury Stated Complaint: BACK PAIN Source: patient Exam Limitations: no limitations Vital Signs & Intake/Output Vital Signs & Intake/Output Vital Signs Date Time Temp Pulse Resp B/P B/P Pulse O2 O2 Flow FiO2 Mean Ox Delivery Rate 03/31 1716 97.9 72 15 107/53 95 Room Air Room Air 03/31 1512 97.7 75 17 119/76 98 Room Air Allergies Coded Allergies: cephalexin (From KEFLEX) (ANAPHYLAXIS 01/11/17) Reconcile Medications Aripiprazole (Abilify) 10 MG TABLET 1 TAB PO DAILY MENTAL HEALTH (Reported) Clonazepam 1 MG TABLET 1 TAB PO TID ANXIETY (Reported) Clonidine HCl 0.2 MG TABLET 1 TAB PO TID BP (Reported) Fluoxetine HCl (Prozac) 40 MG CAPSULE 1 CAP PO DAILY MENTAL HEALTH (Reported) Furosemide (Lasix) 20 MG TABLET 1 TAB PO DAILY DIURETIC (Reported) Gabapentin (Neurontin) 800 MG TABLET 1 TAB PO TID MENTAL HEALTH/NERVE PAIN ( Reported) Hydrocodone/Acetaminophen (Vicodin 5-300 MG Tablet) 5 MG-300 MG TABLET 1 TAB PO BID PRN PAIN Meloxicam (Mobic) 15 MG TABLET 1 TAB PO DAILY PRN PAIN Methadone HCl (Dolophine HCl) 10 MG TABLET 80 MG PO DAILY OPIATE DEPENDENCE ( Reported) Methylprednisolone. (Medrol) 4 MG TAB.DS.PK 1 DP PO AD INFLAMMATION 6 on day 1 then reduce by one tablet daily until gone Sulfamethoxazole/Trimethoprim (Bactrim Ds Tablet) 800 MG-160 MG TABLET 1 TAB PO BID cellulitis Triage Note: PT TO ED WITH ACUTE ON CHRONIC LOWER BACK PAIN SINCE LIFTING CANNED FOOD A COUPLE DAYS AGO. STATES PAIN RADIATES DOWN LEFT LEG. TAKING MOTRIN 800 MG W/O RELIEF. DENIES TYLENOL AT TRIAGE. ALSO REPORTS INTERMITTENT URINARY INCONTINENCE SINCE PAIN WORSENED A COUPLE DAYS AGO. AMBULATORY AT TRIAGE Triage Nurses Notes Reviewed? yes Onset: Gradual Duration: constant Quality/Severity: severe, radiation Location: paraspinous muscles Radiation: buttocks, upper legs HPI: Patient is a 52-year-old female with a past medical history of chronic back pain with remote surgical intervention who presents emergency room stating that 3 days ago while carrying groceries and bending forward she had a gradual onset of generalized low back pain with gradual onset of left lower extremity tingling sensation and pain above her knee to her gluteal region. Patient denies any trauma or mechanism of injury however states that the pain has worsened since the onset of her symptoms. Patient denies any fever chills or bladder incontinence or saddle paresthesia. Patient has been taking ibuprofen with relief of pain. Patient states that lumbar spine movements make worse (Luis Manuel Alvarez) Past History Travel History Traveled to [place] past 21 day No Medical History Any Pertinent Medical History? 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 No (Luis Manuel Alvarez) Review of Systems Review of Systems Constitutional: Reports: no symptoms. Eyes: Reports: no symptoms. Ears, Nose, Throat, Mouth: Reports: no symptoms. Respiratory: Reports: no symptoms. Cardiovascular: Reports: no symptoms. Gastrointestinal/Abdominal: Reports: no symptoms. Musculoskeletal: Reports: see HPI, muscle pain, muscle stiffness. Skin: Reports: no symptoms. Neurological/Psychological: Reports: no symptoms. All Other Systems: Reviewed and Negative (Luis Manuel Alvarez) Physical Exam Physical Exam General Appearance: alert, comfortable, obese Head: atraumatic Eyes: Bilateral: normal appearance. Ears, Nose, Throat, Mouth: hearing grossly normal Neck: normal inspection Respiratory: normal breath sounds, no respiratory distress Cardiovascular: regular rate/rhythm Gastrointestinal: normal bowel sounds, soft, non-tender Straight Leg Raising: Left: Pain at ____ degrees (40). Neurologic/Psych: no motor/sensory deficits, awake, alert, normal gait Skin: intact, normal color, warm/dry Comments: Bilateral lower extremities myotomes dermatomes DTRs intact Core Measures CVA/TIA Diagnosis: No (Luis Manuel Alvarez) Progress Differential Diagnosis: aortic dissection, C spine injury, carotid dissection, cauda equina syn, herniated disc, myofascial strain, pyelo/UTI, sciatica, spinal cord inj, thoracic outlet syn, T/L spine injury, ureterolithiasis Plan of Care: Nexus criteria 0 no concerns of spinal abscess or discitis or cauda equina syndrome. Patient was neurovascularly intact to lower extremity. Had normal steady gait. Due to his of present illness and exam findings no emergent wanting of images for the patient's symptoms for concerns of lumbar strain and lumbar radiculopathy (Luis Manuel Alvarez) Departure Departure Disposition: HOME OR SELF CARE Condition: Stable Clinical Impression Primary Impression: Low back strain Secondary Impressions: Lumbar radiculopathy Referrals: Ivory MARTINEZ,Marivel Alvarez (PCP/Family) Additional Instructions: as discussed begin icing the area directly 20 minutes every 2 hours, begin the prescription of mobic for pain and inflammation begin the prescription of Vicodin for breakthrough pain and begin the prescription of Medrol Dosepak for inflammation, prescriptions waiting at [facility]. If symptoms worsen return to emergency room, if no better on Wednesday follow-up with your doctor. Departure Forms: Customer Survey General Discharge Information Prescriptions: Current Visit Scripts Meloxicam (Mobic) 1 TAB PO DAILY PRN PAIN #12 TAB Hydrocodone/Acetaminophen (Vicodin 5-300 MG Tablet) 1 TAB PO BID PRN PAIN #8 TAB Methylprednisolone. (Medrol) 1 DP PO AD #1 DP 6 on day 1 then reduce by one tablet daily until gone (Luis Manuel Alvarez) PA/WAREHOUSE SHIPPING SUPERVISOR Co-Sign Statement Statement: ED Attending supervision documentation- [] I saw and evaluated the patient. I have also reviewed all the pertinent lab results and diagnostic results. I agree with the findings and the plan of care as documented in the PA's/WAREHOUSE SHIPPING SUPERVISOR's documentation. [X] I have reviewed the ED Record and agree with the PA's/WAREHOUSE SHIPPING SUPERVISOR's documentation. [] Additions or exceptions (if any) to the PAs/WAREHOUSE SHIPPING SUPERVISOR's note and plan are summarized below: [] (Blanco Russell DO)
[2018-03-31 17:16] VITALS: BP 107/53
[2018-05-07] MEDS ORDERED: BACTRIM DS TAB1 EACH PO (16:03)
[2018-05-07] MEDS ORDERED: PERCOCET 5-3251 EACH PO (16:03)
== END 2018-03-31 17:17 ==
LOC: ERH 14:59
DX: S39.012A Strain of muscle, fascia and tendon of lower back, initial encounter (principal); M54.16 Radiculopathy, lumbar region; X58.XXXA Exposure to other specified factors, initial encounter; Y92.9 Unspecified place or not applicable; Y93.9 Activity, unspecified

== ENCOUNTER 2018-08-13 15:41 | Inpatient (IN) | payer OTHER ==
[~2018-08-13] VITALS: Ht 157.5 cm; Wt 99.8 kg
[~2018-08-13 15:41] MED LIST changes: +MEDROL4 M2 PO; +PERCOCET 5-3251 EACH PO; +VICODIN 5-3001 EACH PO
[2018-08-13 16:32] LABS: ABSOLUTE BASOPHIL COUNT 0 /CUMM (0.0-0.2); ABSOLUTE EOSINOPHIL COUNT 0.5 /CUMM (0.0-0.7); ABSOLUTE GRANULOCYTE CT 2.5 /CUMM (1.4-6.5); ABSOLUTE LYMPH COUNT 4.5 /CUMM (1.2-3.4); ABSOLUTE MONOCYTE COUNT 0.6 /CUMM (0.10-0.60); BASOPHIL % 0.2 % (0.0-2.0); EOSINOPHIL % 5.8 % (0-5); GRANULOCYTE % 31.6 % (42.2-75.2); HEMATOCRIT 39.9 % (37-47); MEAN CORPUSCULAR HGB 30.2 PG (27.0-31.0); MEAN CORPUSCULAR HGB CONC 32.4 G/DL (33.0-37.0); MEAN CORPUSCULAR VOLUME 93.2 FL (81.0-99.0); MEAN PLATELET VOLUME 8.2 FL (7.4-10.4); PLATELET COUNT 290 /CUMM (130-400); RBC DISTRIBUTION WIDTH 13.7 % (11.5-14.5); RED BLOOD CELL CT 4.28 /CUMM (4.20-5.40)
--- NOTE | 2018-08-13 17:30 | RADIOLOGY REPORT ---
EXAMINATION: XR CHEST CLINICAL INFORMATION: Cough. Rule out pneumonia. COMPARISON: Chest x-ray dated 09/21/2017. TECHNIQUE: 2 views of the chest were obtained. FINDINGS: No airspace opacities or pleural effusions are identified. The cardiomediastinal silhouette is normal. No acute osseous abnormality is seen. IMPRESSION: Clear lungs. No acute process.
--- NOTE | 2018-08-13 17:51 | ED GENERAL ADULT ---
History of Present Illness General Chief Complaint: Dizziness Stated Complaint: DIZZINESS Source: patient Exam Limitations: no limitations Vital Signs & Intake/Output Vital Signs & Intake/Output Vital Signs Date Time Temp Pulse Resp B/P B/P Pulse O2 O2 Flow FiO2 Mean Ox Delivery Rate 08/17 2144 74 130/73 08/17 1951 95 Room Air Room Air 08/17 1605 95 Room Air Room Air 08/17 1600 Room Air 08/17 1415 97.9 77 18 144/77 93 Room Air 08/17 1255 78 150/100 08/17 0956 97.9 73 20 151/105 96 Room Air 08/17 0859 99 Room Air 08/17 0720 Room Air 08/17 0709 97.5 68 18 160/100 95 08/17 0000 Room Air 08/16 2330 141/71 ED Intake and Output 08/17 0000 08/16 1200 Intake Total 1830 20 Output Total Balance 1830 20 Intake, IV 20 20 Intake, Oral 1810 0 Number 1 0 Bowel Movements Allergies Coded Allergies: cephalexin (From KEFLEX) (ANAPHYLAXIS 01/11/17) Triage Note: pt to ed for cough, dizziness and body aches. temp of 101.0, afebrile in triage. nonproductive cough, smokes 1/2 pack of cigarettes a day, O2 91% on RA. exp wheezes heard on auscultation throughout lung jimenez. Triage Nurses Notes Reviewed? yes Onset: Gradual Duration: day(s): Timing: constant HPI: 52-year-old female with a history of hypertension, anxiety, bipolar disorder presenting with fevers to 101F, nonproductive cough, shortness of breath, myalgias, and lightheadedness over the past 2-3 days. Denies any underlying lung disease such as asthma or COPD. She is an active smoker of approximately a half pack per day. No recent sick contacts or travel. Denies chest pain, nasal congestion, rhinorrhea, sputum, abdominal pain, nausea, vomiting, diarrhea, dysuria. (Eileen Alfaro) Reconcile Medications Azithromycin 250 MG TABLET 250 MG PO DAILY copd Bupropion HCl (Wellbutrin XL) 150 MG TAB.ER.24H 1 TAB PO QAM mental health ( Reported) Clonazepam 1 MG TABLET 1 TAB PO TID ANXIETY (Reported) Clonidine HCl 0.2 MG TABLET 1 TAB PO TID BP (Reported) Furosemide (Lasix) 20 MG TABLET 1 TAB PO BID DIURETIC (Reported) Hydroxyzine HCl (hydrOXYzine HCl) 50 MG TABLET 1 TAB PO TID ANXIETY (Reported ) Ibuprofen 600 MG TABLET 1 TAB PO AD PRN PAIN/INFLAMMATION (Reported) with food Methadone HCl 10 MG/ML ORAL.CONC 70 MG PO DAILY CHRONIC PAIN (Reported) Nicotine (Nicotine Patch) 7 MG/24 HOUR PATCH.TD24 14 MG TOP Q24 PRN SMOKING CESSATION Prednisone 10 MG TABLET 4 TAB PO DAILY copd Pregabalin (Lyrica) 150 MG CAPSULE 1 CAP PO BID NERVE PAIN (Reported) (Jean Munoz MD) Past History Travel History Traveled to [place] past 21 day No Medical History Any Pertinent Medical History? 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 No (Eileen Alfaro) Review of Systems Review of Systems Constitutional: Reports: see HPI. EENTM: Reports: no symptoms. Respiratory: Reports: see HPI. Cardiovascular: Reports: no symptoms. GI: Reports: no symptoms. Genitourinary: Reports: no symptoms. Musculoskeletal: Reports: see HPI. Skin: Reports: no symptoms. Neurological/Psychological: Reports: see HPI. Hematologic/Endocrine: Reports: no symptoms. Immunologic/Allergic: Reports: no symptoms. All Other Systems: Reviewed and Negative (Eileen Alfaro) Physical Exam Physical Exam General Appearance: well developed/nourished, no apparent distress, alert, awake Comments: Gen.: Well-nourished, well-developed, no acute distress. Head: Normocephalic, atraumatic. Eyes: Normal inspection bilaterally Ears: Normal inspection bilaterally Nose: Normal inspection Neck: Normal inspection Lungs: Diminished lung sounds with end expiratory wheezes bilaterally, mild increase in work of breathing, respiratory rate of 20, O2 saturation 91% on room air Heart: regular rate and rhythm Abdomen: soft and non-tender Extremities: Normal inspection Neurologic: alert and oriented x3, steady gait Skin: warm and dry Psychiatric: Normal mood and affect, no apparent delusions or hallucinations, behavior appropriate Core Measures ACS in differential dx? No CVA/TIA Diagnosis: No Sepsis Present: No Sepsis Focused Exam Completed? No (Eileen Alfaro) Progress Differential Diagnoses I considered the following diagnoses in my evaluation of the patient: [URI versus bronchitis versus pneumonia versus new onset COPD/COPD exacerbation versus respiratory failure] Plan of Care: Orders Procedure Date/time Status TROPONIN LEVEL 08/17 1144 Complete D-DIMER 08/17 1144 Complete EKG 08/17 0953 Active RT: Reevaluation 08/17 09 Active RT RE-EVALUATION 08/17 UNK Complete MISSING MEDICATION FORM 08/17 UNK Active AEROSOL CHG 08/16 UNK Complete Current Medications Sig/[place] Start time Last Medication Dose Stop Time Status Admin Cyclobenzaprine HCl 10 MG BID 08/17 2100 AC 08/17 (Flexeril 10MG Tab) 2144 Melatonin 5 MG AT BEDTIME PRN 08/17 2030 AC 08/17 (Melatonin) 214 Acetylcysteine 2 ML BID 08/17 0958 AC (Mucosol 20%) Methylprednisolone 40 MG DAILY 08/17 0900 AC 08/17 (Solumedrol) 0817 Ibuprofen 400 MG Q4P PRN 08/16 1000 AC 08/17 (Motrin) 202 Methadone HCl 70 MG DAILY 08/15 1105 AC 08/17 (Dolophine) 0816 Azithromycin 250 MG DAILY 08/15 0900 AC 08/17 (Zithromax) 08/18 0901 0817 Polyethylene Glycol 17 GM AT BEDTIME 08/14 2100 AC 08/15 (Miralax) 2104 Albuterol Sulfate 3 ML EVERY 4 HRS/AWAKE 08/14 1200 AC 08/17 (Proventil) 1948 Nicotine 14 MG DAILY 08/14 1100 AC 08/17 (Nicotine Cq) 0817 Bupropion HCl 150 MG QAM 08/14 0900 AC 08/17 (Wellbutrin XL) 0816 Clonidine 0.2 MG TID 08/14 0900 AC 08/17 (Catapres) 214 Docusate Sodium 100 MG BID 08/14 900 AC 08/17 (Colace) 214 Enoxaparin Sodium 40 MG DAILY 08/14 900 AC 08/17 (Lovenox) 816 Furosemide 20 MG BID 08/14 900 AC 08/17 (Lasix) 214 Hydroxyzine HCl 50 MG TID PRN 08/14 215 AC 08/17 (Atarax) 171 Pregabalin 150 MG BID 08/14 215 AC 08/17 (Lyrica) 214 Guaifenesin/Codeine 10 ML Q6P PRN 08/14 0030 AC 08/17 Phosphate 1632 (Robitussin AC) Acetaminophen 650 MG Q6P PRN 08/13 2230 AC 08/15 (Tylenol) 215 Acetaminophen 1,000 MG Q6P PRN 08/13 2230 AC 08/17 (Ofirmev) 1238 Nicotine 7 MG Q24 PRN 08/13 2230 AC (Nicotine Cq) Laboratory Tests 08/17/18 1154: Troponin I < 0.01, D-Dimer High Sensitivty 207 EKG is nonischemic Chest x-ray unremarkable, no evidence of pneumonia Labs show hypercarbia with a PCO2 of 62, pH is within normal limits After multiple duo nebs and prednisone patient is noted to be hypoxic to 88% on room air and still with a mild increase in her work of breathing. Therefore she will be admitted to general medicine for hypoxemic hypercarbic respiratory failure. Covered with IV azithromycin for suspected bacterial bronchitis as she is an active smoker. Initial ED EKG: normal sinus rhythm, no ST T wave changes (Eileen Alfaro) Departure Departure Disposition: STILL A PATIENT Clinical Impression Primary Impression: Acute hypoxemic respiratory failure Secondary Impressions: Bronchitis Referrals: Ivory MARTINEZ,Marivel Alvarez (PCP/Family) Departure Forms: Customer Survey General Discharge Information Admission Note Spoke With: Semaj MARTINEZ,Tommie Documentation of Exam: Documentation of any treatments & extenuating circumstances including Concerns Regarding Discharge (functional status, medication knowledge or non-compliance, living conditions, etc.) that warrant an admission rather than observation: [ Hemodynamic monitoring, supplemental oxygen, IV antibiotics, serial chest x-rays , serial ABGs, pulmonary consult] (Eileen Alfaro) Departure Condition: Stable Prescriptions: Current Visit Scripts Azithromycin 250 MG PO DAILY #1 TAB Nicotine (Nicotine Patch) 14 MG TOP Q24 PRN SMOKING CESSATION #30 PATCH Prednisone 4 TAB PO DAILY #30 TAB PA/DISPLAY FABRICATOR Co-Sign Statement Statement: ED Attending supervision documentation- x I saw and evaluated the patient. I have also reviewed all the pertinent lab results and diagnostic results. I agree with the findings and the plan of care as documented in the PA's/DISPLAY FABRICATOR's documentation. Fever, cough, sob with increased work of breathing [] I have reviewed the ED Record and agree with the PA's/DISPLAY FABRICATOR's documentation. [] Additions or exceptions (if any) to the PAs/DISPLAY FABRICATOR's note and plan are summarized below: [] (Tammy MARTINEZ,Jean) Critical Care Note Critical Care Note Critical Care Time: non-applicable (Tom URRUTIA,Eileen) O2 Saturation 34 L, Carboxyhemoglobin 3.1, O2 Concentration % 2LPM, O2 Delivery Method NC, Phlebotomy Draw Site RIGHT RADIAL 08/13/18 1619: Anion Gap 2 L, Estimated GFR > 60, BUN/Creatinine Ratio 11.4, Glucose 109 H, Calcium 8.9, Total Bilirubin 0.3, AST 38 H, ALT 46, Alkaline Phosphatase 111, Troponin I < 0.01, Umm-U-Kjplmavxixt Pept 292 H, Total Protein 6.5, Albumin 3.4 L, Globulin 3.1, Albumin/Globulin Ratio 1.1, CBC w Diff NO MAN DIFF REQ, RBC 4.28, MCV 93.2, MCH 30.2, MCHC 32.4 L, RDW 13.7, MPV 8.2, Gran % 31.6 L, Lymphocytes % 55.4 H, Monocytes % 7.0, Eosinophils % 5.8 H, Basophils % 0.2, Absolute Granulocytes 2.5, Absolute Lymphocytes 4.5 H, Absolute Monocytes 0.6, Absolute Eosinophils 0.5, Absolute Basophils 0 Microbiology 08/13 2300 NASOPHARYN: Influenza Virus A & B Rapid Smear - COMP 08/13 1945 BLOOD: Blood Culture - RES 08/13 1935 BLOOD: Blood Culture - RES EKG is nonischemic Chest x-ray unremarkable, no evidence of pneumonia Labs show hypercarbia with a PCO2 of 62, pH is within normal limits After multiple duo nebs and prednisone patient is noted to be hypoxic to 88% on room air and still with a mild increase in her work of breathing. Therefore she will be admitted to general medicine for hypoxemic hypercarbic respiratory failure. Covered with IV azithromycin for suspected bacterial bronchitis as she is an active smoker. Initial ED EKG: normal sinus rhythm, no ST T wave changes Departure Departure Disposition: STILL A PATIENT Condition: Stable Clinical Impression Primary Impression: Acute hypoxemic respiratory failure Secondary Impressions: Bronchitis Referrals: Ivory MARTINEZ,Marivel Alvarez (PCP/Family) Departure Forms: Customer Survey General Discharge Information Admission Note Spoke With: Tommie Cha MD Documentation of Exam: Documentation of any treatments & extenuating circumstances including Concerns Regarding Discharge (functional status, medication knowledge or non-compliance, living conditions, etc.) that warrant an admission rather than observation: [ Hemodynamic monitoring, supplemental oxygen, IV antibiotics, serial chest x-rays , serial ABGs, pulmonary consult] Critical Care Note Critical Care Note Critical Care Time: non-applicable
[2018-08-13] MEDS ORDERED: WELLBUTRIN XL150 M2 PO (19:41)
[2018-08-13] MEDS ORDERED: LYRICA200 M1 PO (19:41)
[2018-08-13] MEDS ORDERED: METHADONE10 MG/1 M2 PO (19:42)
--- NOTE | 2018-08-13 19:42 | History & Physical ---
Guilherme Chen 08/13/181940: General Information and HPI MD Statement: I have seen and personally examined ASHLEY ESTRELLA and documented this H&P. The patient is a 52 year old F who presented with a patient stated chief complaint of [worsening shortness of breath]. Source of Information: patient Exam Limitations: no limitations History of Present Illness: 52 year old obese female with history of hypertension, anxiety and opioid dependence presents with 3-days of worsening shortness of breath and wheezing after coming down with "a head cold". The patient is an active smoker with a significant 30 pack-year history, and over the past few days she has become more and more short of breath along with wheezing that is making it difficult for her to breathe, waking her up from sleep. She also endorses a non-productive cough over the same time frame, with subjective fever, chills and sweating that happened last night. She denies recent travel, or sick contacts and lives at home with her daughter. The patient is currently on methadone, reporting a dose of 70mg daily, but this will need to be confirmed with the [facility] on [address] in [place]. Allergies/Medications Allergies: Coded Allergies: cephalexin (From KEFLEX) (ANAPHYLAXIS 01/11/17) Home Med list Bupropion HCl (Wellbutrin XL) 150 MG TAB.ER.24H 1 TAB PO QAM mental health ( Reported) Clonazepam 1 MG TABLET 1 TAB PO TID ANXIETY (Reported) Clonidine HCl 0.2 MG TABLET 1 TAB PO TID BP (Reported) Furosemide (Lasix) 20 MG TABLET 1 TAB PO BID DIURETIC (Reported) Hydroxyzine HCl (hydrOXYzine HCl) 50 MG TABLET 1 TAB PO TID ANXIETY (Reported ) Ibuprofen 600 MG TABLET 1 TAB PO AD PRN PAIN/INFLAMMATION (Reported) with food Methadone HCl 10 MG/ML ORAL.CONC 70 MG PO DAILY CHRONIC PAIN (Reported) Pregabalin (Lyrica) 150 MG CAPSULE 1 CAP PO BID NERVE PAIN (Reported) Compliance With Home Meds: GOOD Past History Travel History Traveled to [place] past 21 day No Medical History Neurological: NERVE PAIN EENT: NONE Cardiovascular: hypertension Respiratory: pneumonia Gastrointestinal: NONE Hepatic: NONE Renal: NONE Musculoskeletal: NONE Psychiatric: anxiety, bipolar disease, depression, substance abuse (PTSD) Endocrine: NONE Blood Disorders: NONE Cancer(s): NONE COMPUTER TECHNOLOGY TRAINER/Reproductive: NONE History of MRSA: No History of VRE: No History of CDIFF: No Tetanus Vaccine: 01/11/17 Surgical History Surgical History: KAT knee replacements BACK SURGERY (HERNIATED DISCS) Past Family/Social History Family History Relations & Conditions if any Relation not specified for: *No pertinent family history Psychosocial History Services at Home: None Functional Ability ADLs Independent: dressing, eating, toileting, bathing. Ambulation: independent IADLs Independent: shopping, housework, finances, food prep, telephone, transportation , medication admin. Review of Systems Review of Systems Constitutional: Reports: chills, diaphoresis, fever. Cardiovascular: Denies: chest pain, orthopena, palpitations. Respiratory: Reports: cough, short of breath, wheezing. Denies: sputum production. GI: Denies: abdominal pain, diarrhea, nausea, vomiting. Exam & Diagnostic Data Last 24 Hrs of Vital Signs/I&O Vital Signs Date Time Temp Pulse Resp B/P B/P Pulse O2 O2 Flow FiO2 Mean Ox Delivery Rate 08/13 2205 94 Nasal 2.0L Cannula 08/13 2050 97.8 78 18 118/59 94 Nasal 3.0L Cannula 08/13 2048 96 Nasal 4.0L Cannula 08/13 2047 95 Nasal 4.0L Cannula 08/13 1850 88 Room Air 08/13 1646 95 08/13 1637 95 08/13 1606 97.0 84 20 118/70 90 Room Air Intake & Output 08/14 0800 08/14 0000 08/13 1600 Intake Total 400 Output Total Balance 400 Intake, Oral 400 Patient 99.79 kg Weight Weight Reported by Patient Measurement Method Physical Exam General Appearance Alert, Oriented X3, Cooperative, No Acute Distress HEENT Atraumatic, PERRLA, EOMI, Mucous Membr. moist/pink Neck Supple, No JVD Cardiovascular Regular Rate, Normal S1, Normal S2 Lungs Wheezing diffusely throughout lung jimenez Abdomen Normal Bowel Sounds, Soft, No Tenderness Neurological Normal Speech, Strength at 5/5 X4 Ext, Normal Tone, Sensation Intact Extremities 1+ pitting edema of the BLE Last 24 Hrs of Labs/Gino: Laboratory Tests 08/13/180: Bicarbonate Actual 30.3 H, Mixed VBG pH 7.31, Mixed VBG pCO2 62 H, Mixed VBG O2 Saturation 34 L, Carboxyhemoglobin 3.1, O2 Concentration % 2LPM, O2 Delivery Method NC, Phlebotomy Draw Site RIGHT RADIAL 08/13/18 1619: Anion Gap 2 L, Estimated GFR > 60, BUN/Creatinine Ratio 11.4, Glucose 109 H, Calcium 8.9, Total Bilirubin 0.3, AST 38 H, ALT 46, Alkaline Phosphatase 111, Troponin I < 0.01, [id number] Pept 292 H, Total Protein 6.5, Albumin 3.4 L, Globulin 3.1, Albumin/Globulin Ratio 1.1, CBC w Diff NO MAN DIFF REQ, RBC 4.28, MCV 93.2, MCH 30.2, MCHC 32.4 L, RDW 13.7, MPV 8.2, Gran % 31.6 L, Lymphocytes % 55.4 H, Monocytes % 7.0, Eosinophils % 5.8 H, Basophils % 0.2, Absolute Granulocytes 2.5, Absolute Lymphocytes 4.5 H, Absolute Monocytes 0.6, Absolute Eosinophils 0.5, Absolute Basophils 0 Microbiology 08/13 2300 NASOPHARYN: Influenza Virus A & B Rapid Smear - COMP 08/13 1945 BLOOD: Blood Culture - RECD 08/13 1935 BLOOD: Blood Culture - RECD Assessment/Plan Assessment: 52 year old obese female with history of HTN, anxiety and opioid dependence presenting with worsening shortness of breath and wheezing secondary to URI. Problems: 1. Bronchitis 2. Upper respiratory infection 3. Active cigarette use Plan: -Admit to general medicine -Solu-medrol 40mg IV Q12 -Robitussin DM PRN cough -TRC/Duonebs -Rapid flu Full code ALPS & Lovenox DVT ppx Regular diet As Ranked By This Provider Problem List: 1. Bronchitis 2. Upper respiratory infection 3. Cigarette smoker 4. Obesity Core Measures/Misc (08/15) Acute Coronary Syndrome ACS Diagnosis: No Congestive Heart Failure Congestive Heart Failure Diagnosis No Cerebrovascular Accident CVA/TIA Diagnosis: No VTE (View Protocol) VTE Risk Factors Age>40 No Mechanical VTE Prophylaxis d/t N/A MechProphylax Ordered No VTE Pharm Prophylaxis d/t NA PharmProphylax ordered Sepsis (View protocol) Sepsis Present: No If YES complete Sepsis Event Note If YES complete Sepsis Event Note Kel Washington MD 08/13/182030: Exam & Diagnostic Data Last 24 Hrs of Vital Signs/I&O Vital Signs Date Time Temp Pulse Resp B/P B/P Pulse O2 O2 Flow FiO2 Mean Ox Delivery Rate 08/14 627 97.7 86 20 124/82 93 08/14 0000 95 Non 3.0L ReBreather 08/13 2205 94 Nasal 2.0L Cannula 08/13 2200 98.2 91 20 118/74 92 Room Air 08/13 2050 97.8 78 18 118/59 94 Nasal 3.0L Cannula 08/13 2048 96 Nasal 4.0L Cannula 08/13 2047 95 Nasal 4.0L Cannula 08/13 1850 88 Room Air 08/13 1646 95 08/13 1637 95 08/13 1606 97.0 84 20 118/70 90 Room Air Intake & Output 08/14 0800 08/14 0000 08/13 1600 Intake Total 760 Output Total Balance 760 Intake, Oral 760 Patient 220 lb Weight Weight Reported by Patient Measurement Method Core Measures/Misc (08/15) Sepsis (View protocol) If YES complete Sepsis Event Note If YES complete Sepsis Event Note Resident Review Statement Resident Statement: examined this patient, discussed with healthcare administration internship, agreed with healthcare administration internship, reviewed EMR data (avail), reviewed images, amended to note Other Findings: Patient is a 52-year-old female with past medical history of anxiety, depression , hypertension, neuropathy, bilateral knee placements, opiate dependence on methadone, current every day smoker previous admission in 2017 for acute epiglottitis presenting with chief complaint of cough. Patient reports a 3 day history of a "head cold". Reports that it has been getting worse with increasing wheezing and coughing. Patient states that she saw her PCP and was sent home with cold medicine. Patient reports chills, nonproductive cough, a temperature of 100.3 and sweating. Patient reports that her neighbor has a cold however reports that she has not been in close contact with her. Patient lives with her daughter. Patient is not currently working and has not traveled recently. Patient denies any chest pain, abdominal pain, nausea/vomiting, constipation/diarrhea, hematuria/dysuria. Patient reports shortness of breath with exertion. Patient is a current every day smoker. Reports smoking 10 cigarettes per day which she states is significantly less then previous when she was smoking 1.5 packs per day for the past 20 years. Patient denies any alcohol or illicit drug use. Patient reports that she has a dog. Reports allergies to Keflex. Denies any seasonal or environmental allergies. Patient reports at her PCPs office she was told that she has borderline diabetes. Reports that she has never been on medications for diabetes in the past. In the ED patient received duo nebs, prednisone 60 mg, IV azithromycin 1. Vitals MAXIMUM TEMPERATURE of 97, heart rate 84, respiration rate 20, blood pressure 118/70, saturating between 88-95% on room air Gen.: Patient resting comfortably in bed in no acute distress HEENT: PERRLA, MMM, EOMI Lungs: Bilateral rhonchi and wheezing throughout lung jimenez CVS: Regular rate and rhythm, S1-S2 no murmurs appreciated Abdomen: Soft, nontender, nondistended, positive bowel sounds Ext: bilateral lower extremity pedal edema Labs: WBC 8.0, H&H 12.9 and 39.9, platelet 290, sodium 138, potassium 4.7, chloride 101, bicarbonate 35, BUN 8, creatinine 0.7, glucose 9, AST 38, ALT 46, alkaline phosphatase 111, troponin less than 0.01, BNP 292, Venous blood gas: Bicarbonate 30, pH 7.31, CO2 62, mixed O2 saturation 62% on 2 L NC Chest x-ray: No acute process Patient is a 52-year-old female with past medical history significant for bronchitis and epiglottitis who is a current every day smoker presenting with symptoms suggestive of bronchitis. Plan: Admit to general med Continue IV steroids Continue IV azithromycin Check rapid influenza Robitussin for cough Continue home medications Patient is on methadone 70 mg. This needs to be confirmed with the [facility] on [address]. Accu-Cheks twice a day. Place on sliding scale if sugars are elevated. Smoking cessation counseling and Nicotine patch PRN [place] control: tylenol Code: Full code Diet: Consistent carb 3 DVT prophylaxis: Xochilt Lowry MD,Tommie Nur 08/13/18 2321: Core Measures/Misc (08/15) Sepsis (View protocol) If YES complete Sepsis Event Note If YES complete Sepsis Event Note Attending MD Review Statement Attending Statement Attending MD Statement: examined this patient, discuss w/resident/PA/GEODETIC SURVEYOR, agreed w/resident/PA/GEODETIC SURVEYOR Attending Assessment/Plan: 52 year-old active tobacco use presents with 3 day history of URI symptoms; began with headache and evolved to prominent non-productive cough, low grade temperatures, and malaise. Saw outpatient doctor who recommended conservative care the night prior; however, coughing became intolerable, prompting evaluation in the ER today. In ER chest film was clear, but she had prominent expiratory wheezing, and ambulatory hypoxia on room air to 88%. Will admit to inpatient for management of likely obstructive lung disease (previous undiagnosed?) exacerbation, with steroids, Zithromax, bronchodilators, smoking cessation, Hycodan for cough, and nicotine replacement. Continue methadone maintenance. Check for influenza. Repeat AM ambulatory room air pulse oximetry. Dr. Tommie Cha
[2018-08-13] MEDS ORDERED: HYDROXYZINE HCL50 M2 PO (19:43)
[2018-08-13] MEDS ORDERED: IBUPROFEN600 M1 PO (19:44)
[2018-08-13] MEDS ORDERED: LYRICA150 M1 PO (19:44)
[2018-08-13 22:00] VITALS: BP 118/74
[2018-08-14 06:27] VITALS: BP 124/82
[2018-08-14 09:29] LABS: ABSOLUTE BASOPHIL COUNT 0 /CUMM (0.0-0.2); ABSOLUTE EOSINOPHIL COUNT 0 /CUMM (0.0-0.7); ABSOLUTE GRANULOCYTE CT 4.2 /CUMM (1.4-6.5); ABSOLUTE LYMPH COUNT 3.2 /CUMM (1.2-3.4); ABSOLUTE MONOCYTE COUNT 0.9 /CUMM (0.10-0.60); BASOPHIL % 0.3 % (0.0-2.0); EOSINOPHIL % 0.5 % (0-5); HEMATOCRIT 35.9 % (37-47); MEAN CORPUSCULAR HGB 30.3 PG (27.0-31.0); MEAN CORPUSCULAR HGB CONC 32.5 G/DL (33.0-37.0); MEAN CORPUSCULAR VOLUME 93.2 FL (81.0-99.0); MEAN PLATELET VOLUME 8.8 FL (7.4-10.4); PLATELET COUNT 269 /CUMM (130-400); RBC DISTRIBUTION WIDTH 13.6 % (11.5-14.5); RED BLOOD CELL CT 3.85 /CUMM (4.20-5.40); WHITE BLOOD CELL COUNT 8.3 /CUMM (4.8-10.8)
--- NOTE | 2018-08-14 09:34 | PN- Housestaff ---
Catracho Glasgow 08/14/18 0932: Subjective Follow-up For: Bronchitis Subjective: patient was seen and examined this morning. She was wheezing and did not sound any better, She said that she smokes 1.5 PPD and needs somethiing to stop smoking. SHe continued to have shortness or breath, No h/o asthma . Review of Systems Constitutional: Reports: no symptoms. Objective Last 24 Hrs of Vital Signs/I&O Vital Signs Date Time Temp Pulse Resp B/P B/P Pulse O2 O2 Flow FiO2 Mean Ox Delivery Rate 08/14 1111 Room Air Room Air 08/14 0917 86 124/82 08/14 0627 97.7 86 20 124/82 93 08/14 0000 95 Non 3.0L ReBreather 08/13 2205 94 Nasal 2.0L Cannula 08/13 2200 98.2 91 20 118/74 92 Room Air 08/130 97.8 78 18 118/59 94 Nasal 3.0L Cannula 08/13 2048 96 Nasal 4.0L Cannula 08/13 2047 95 Nasal 4.0L Cannula 08/13 1850 88 Room Air 08/13 1646 95 08/13 1637 95 08/13 1606 97.0 84 20 118/70 90 Room Air Intake & Output 08/14 1600 08/14 0800 08/14 0000 Intake Total 240 760 Output Total Balance 240 760 Intake, Oral 240 760 Patient 220 lb 220 lb Weight Weight Reported by Patient Reported by Patient Measurement Method Physical Exam General Appearance: Alert, Oriented X3, Cooperative, Mild Distress Cardiovascular: Regular Rate, No Murmurs Lungs: patient has loud wheezes and rhonchi Abdomen: Normal Bowel Sounds, Soft, No Tenderness, No Hepatospenomegaly, No Masses Neurological: Normal Speech, Strength at 5/5 X4 Ext, Normal Tone, Sensation Intact Extremities: No Clubbing, No Cyanosis, No Edema, Normal Pulses, No Tenderness/ Swelling Current Medications: Current Medications Sig/[place] Start time Last Medication Dose Route Stop Time Status Admin Acetaminophen 650 MG Q6P PRN 08/13 223 AC PO Acetaminophen 1,000 MG Q6P PRN 08/13 223 AC IV Albuterol Sulfate 3 ML EVERY 4 HRS/AWAKE 08/14 1200 AC 08/14 INH 1110 Albuterol Sulfate 3 ML ONCE ONE 08/13 184 DC 08/13 INH 08/13 Albuterol Sulfate 3 ML ONCE ONE 08/13 1845 DC 08/13 INH 08/13 1846 204 Albuterol Sulfate 3 ML ONCE ONE 08/13 1615 DC 08/13 INH 08/13 1616 1636 Albuterol Sulfate 3 ML ONCE ONE 08/13 1615 DC 08/13 INH 08/13 1616 1646 Azithromycin 250 MG DAILY 08/15 09 AC PO 08/18 09 Azithromycin 500 MG DAILY 08/14 09 DC 08/14 Sodium Chloride 250 ML IV 917 Azithromycin 500 MG ONCE ONE 08/13 191 DC 08/13 Sodium Chloride 250 ML IV 08/13 Bupropion HCl 150 MG QAM 08/14 09 AC 08/14 PO 0919 Clonidine 0.2 MG TID 08/14 09 AC 08/14 PO 0917 Docusate Sodium 100 MG BID 08/14 0900 AC 08/14 PO 09 Enoxaparin Sodium 40 MG DAILY 08/14 09 AC 08/14 SC 0927 Furosemide 20 MG BID 08/14 09 AC 08/14 PO 0916 Guaifenesin/Codeine 10 ML Q6P PRN 08/14 0030 AC 08/14 Phosphate PO 0933 Guaifenesin/ 10 ML Q6P PRN 08/14 0215 DC Dextromethorphan PO Guaifenesin/ 10 ML Q6P PRN 08/13 2330 DC Dextromethorphan PO Hydroxyzine HCl 50 MG TID PRN 08/14 0215 AC PO Ipratropium [place] 2.5 ML ONCE ONE 08/13 1845 DC 08/13 INH 08/13 1846 202 Ipratropium [place] 2.5 ML ONCE ONE 08/13 1615 DC 08/13 INH 08/13 1616 1636 Methadone HCl 70 MG ONCE ONE 08/14 1230 UNVr PO 08/14 1231 Methylprednisolone 40 MG Q8 08/14 1400 AC IV Methylprednisolone 40 MG Q12 08/14 0900 DC IV Nicotine 14 MG DAILY 08/14 1100 AC TOP Nicotine 7 MG Q24 PRN 08/13 2230 AC TOP Polyethylene Glycol 17 GM AT BEDTIME 08/14 2100 AC PO Prednisone 0 .STK-MED ONE 08/13 1617 DC PO Prednisone 60 MG ONCE ONE 08/13 1615 DC 08/13 PO 08/13 1616 1617 Pregabalin 150 MG BID 08/14 0215 AC 08/14 PO 0926 Last 24 Hrs of Lab/Gino Results Last 24 Hrs of Labs/Mics: Laboratory Tests 08/14/18 0753: Anion Gap 3 L, Estimated GFR > 60, BUN/Creatinine Ratio 16.7, CBC w Diff NO MAN DIFF REQ, RBC 3.85 L, MCV 93.2, MCH 30.3, MCHC 32.5 L, RDW 13.6, MPV 8.8, Gran % 50.4, Lymphocytes % 38.3, Monocytes % 10.5 H, Eosinophils % 0.5, Basophils % 0.3, Absolute Granulocytes 4.2, Absolute Lymphocytes 3.2, Absolute Monocytes 0.9 H, Absolute Eosinophils 0, Absolute Basophils 0 08/13/18 1920: Bicarbonate Actual 30.3 H, Mixed VBG pH 7.31, Mixed VBG pCO2 62 H, Mixed VBG O2 Saturation 34 L, Carboxyhemoglobin 3.1, O2 Concentration % 2LPM, O2 Delivery Method NC, Phlebotomy Draw Site RIGHT RADIAL 08/13/18 1619: Anion Gap 2 L, Estimated GFR > 60, BUN/Creatinine Ratio 11.4, Glucose 109 H, Calcium 8.9, Total Bilirubin 0.3, AST 38 H, ALT 46, Alkaline Phosphatase 111, Troponin I < 0.01, Gvy-J-Rklbstjaxme Pept 292 H, Total Protein 6.5, Albumin 3.4 L, Globulin 3.1, Albumin/Globulin Ratio 1.1, CBC w Diff NO MAN DIFF REQ, RBC 4.28, MCV 93.2, MCH 30.2, MCHC 32.4 L, RDW 13.7, MPV 8.2, Gran % 31.6 L, Lymphocytes % 55.4 H, Monocytes % 7.0, Eosinophils % 5.8 H, Basophils % 0.2, Absolute Granulocytes 2.5, Absolute Lymphocytes 4.5 H, Absolute Monocytes 0.6, Absolute Eosinophils 0.5, Absolute Basophils 0 Microbiology 08/13 2300 NASOPHARYN: Influenza Virus A & B Rapid Smear - COMP 08/13 1945 BLOOD: Blood Culture - RES 08/13 1935 BLOOD: Blood Culture - RES Assessment/Plan Assessment: 52 year old obese female with history of HTN, anxiety and opioid dependence presenting with worsening shortness of breath and wheezing secondary to URI. Problems: 1. Bronchitis 2. Upper respiratory infection 3. Active cigarette use Plan:Patient has loud rhonchi and wheezes and will benefit from stay. -Solu-medrol 40mg IV Q8 -Robitussin DM PRN cough -TRC/Duonebs -Rapid flu - nictoine patch methadone to be veriufied tomorrow at [facility]( closed today) give 1 home dose today Full code ALPS & Lovenox DVT ppx Regular diet Problem List: 1. Bronchitis Pain Ratin Pain Location: none Pain Goal: Remain pain free Pain Plan: none Tomorrow's Labs & Rationales: none Suman Mims MD 08/14/18 1320: Attending MD Review Statement Attending Statement Attending MD Statement: examined this patient, discuss w/resident/PA/DATA REDUCTION TECHNICIAN, agreed w/resident/PA/DATA REDUCTION TECHNICIAN, discussed with family, reviewed EMR data (avail), discussed with nursing, discussed with case mgmt, reviewed images, amended to note Attending Assessment/Plan: Suman Perez M.D. have examined this patient, reviewed available EMR data, personally reviewed images, discussed with resident/PA/DATA REDUCTION TECHNICIAN, discussed management plan with housestaff and nursing staff, discussed managment plan all of healthcare providers, discussed management plan with patient and/or family, agreed with resident/PA/DATA REDUCTION TECHNICIAN. The past history and parts of the chart have been autopopulated. Impression 52-year-old woman * Acute bronchitis with likely underlying chronic bronchitis with an acute exacerbation * Tobacco dependence * Methadone dependence Plan -Normal chest x-ray -Increase Solu-Medrol to 40 mg IV every 8 -TRC, nebs -Nicotine replacement for the patch -Tobacco cessation counseling -5 day course of Zithromax -Received 70 mg of methadone per patient please confirm methadone dose DVT prophylaxis at all times
[2018-08-14 09:43] LABS: GRANULOCYTE % 50.4 % (42.2-75.2)
[2018-08-14 14:27] VITALS: BP 114/73
[2018-08-14 22:00] VITALS: BP 118/74
[2018-08-15 07:05] VITALS: BP 135/90
--- NOTE | 2018-08-15 07:41 | PN- Housestaff ---
Catracho Glasgow 08/15/18 0741: Subjective Follow-up For: bronchitis Subjective: patient was examined today. She says she feels much bettter, SOB is reduced, no CP, Rash on her neck and chest area is also reduced. Review of Systems Constitutional: Reports: see HPI. Objective Last 24 Hrs of Vital Signs/I&O Vital Signs Date Time Temp Pulse Resp B/P B/P Pulse O2 O2 Flow FiO2 Mean Ox Delivery Rate 08/15 1308 75 132/78 08/15 1106 96 Room Air 08/15 0800 95 Room Air 08/15 0705 98.0 84 20 135/90 93 Room Air 08/15 0628 98 Nasal 3.0L Cannula 08/15 0000 93 Room Air 08/14 2200 98.1 93 24 118/74 93 Room Air 08/14 2134 93 118/74 08/14 1638 Nasal 2.0L Cannula Intake & Output 08/15 1600 08/15 0800 08/15 0000 Intake Total 1030 Output Total Balance 1030 Intake, IV 30 Intake, Oral 1000 Number 0 Bowel Movements Physical Exam General Appearance: Alert, Oriented X3, Cooperative, No Acute Distress Cardiovascular: Regular Rate, No Murmurs Lungs: decreased wheezing and sob Abdomen: Normal Bowel Sounds, Soft, No Tenderness, No Hepatospenomegaly, No Masses Neurological: Normal Speech, Strength at 5/5 X4 Ext, Normal Tone, Sensation Intact Extremities: No Clubbing, No Cyanosis, No Edema, Normal Pulses, No Tenderness/ Swelling Current Medications: Current Medications Sig/[place] Start time Last Medication Dose Route Stop Time Status Admin Acetaminophen 650 MG Q6P PRN 08/13 2230 AC 08/14 PO 2133 Acetaminophen 1,000 MG Q6P PRN 08/13 223 AC IV Albuterol Sulfate 3 ML EVERY 4 HRS/AWAKE 08/14 1200 AC 08/15 INH 1103 Azithromycin 250 MG DAILY 08/15 900 AC 08/15 PO 08/18 0901 0841 Bupropion HCl 150 MG QAM 08/14 900 AC 08/15 PO 0841 Clonidine 0.2 MG TID 08/14 900 AC 08/15 PO 1308 Docusate Sodium 100 MG BID 08/14 09 AC 08/15 PO 0841 Enoxaparin Sodium 40 MG DAILY 08/14 900 AC 08/15 SC 0839 Furosemide 20 MG BID 08/14 0900 AC 08/15 PO 0841 Guaifenesin/Codeine 10 ML Q6P PRN 08/14 0030 AC 08/15 Phosphate PO 1308 Hydroxyzine HCl 50 MG TID PRN 08/14 0215 AC 08/15 PO 1308 Methadone HCl 70 MG DAILY 08/15 1105 AC 08/15 PO 1307 Methylprednisolone 40 MG Q8 08/14 1400 AC 08/15 IV 1307 Nicotine 14 MG DAILY 08/14 1100 08/15 TOP 0839 Nicotine 7 MG Q24 PRN 08/13 2230 [facility] Patient Medication 1 ED ONE ONE 08/15 1330 DC Teaching ED 08/15 1331 Polyethylene Glycol 17 GM AT BEDTIME 08/14 2100 AC PO Pregabalin 150 MG BID 08/14 0215 AC 08/15 PO 0839 Assessment/Plan Assessment: 52 year old obese female with history of HTN, anxiety and opioid dependence presenting with worsening shortness of breath and wheezing secondary to URI. Problems: 1. Bronchitis 2. Upper respiratory infection 3. Active cigarette use 4. maculopapular erythematous skin rash resolving with IV solumedrol Plan:Patient has loud rhonchi and wheezes improving with iv solumedrol . 1. Bronchitis -Solu-medrol 40mg IV Q8, will david on taper iv dose tomorrow and will start on oral prednisone taper on day of discharge. WIll plan discharge on . -Robitussin DM PRN cough -TRC/Duonebs -Rapid flu - Patient counselled about COPD 2. Acitive cigerette smoking- 17mg nictoine patch + home dose of bupropion continued - patient counselled on smoking cessation. 3. H/o opioid dependence- verified methadone use at [facility]( closed today ) continue methaqdone 17mg 4. Rash is seen on chest, face, arms, legs - maculopapular erythematous, Patient gives vague h/o muscle weakness. Low possibility of DM, will do CPK. Full code ALPS & Lovenox DVT ppx Regular diet Problem List: 1. Bronchitis Pain Ratin Pain Location: none Pain Goal: Remain pain free Pain Plan: none Tomorrow's Labs & Rationales: cpk Kimi MARTINEZ,Adryan 08/15/18 1402: Attending MD Review Statement Attending Statement Attending MD Statement: examined this patient, discuss w/resident/PA/PELLET POST INSPECTOR, agreed w/resident/PA/PELLET POST INSPECTOR, reviewed EMR data (avail), discussed with nursing, discussed with case mgmt, amended to note Attending Assessment/Plan: Patient seen and examined. Ambulating freely around the unit. Complains of shortness of breath with exertion. Reports feeling better compared to presentation however she still states she is dyspneic with exertion and still has audible wheeze. She fortunately is afebrile and hemodynamically stable. She is not requiring oxygen supplementation. On examination she has diffuse rhonchi globally. No jugular venous distention. No peripheral edema. She has a rash on her chest which she says is improving. She reports that the rash is chronic and present on and off for several years. Case discussed with the pulmonology service will continue bronchodilator therapy and systemic steroid therapy intravenously. Will monitor patient over the next 24-48 hours. Further management will be dictated by her clinical course. She is noted to have mild transaminitis on admission. Probably due to fatty liver disease. Recommend checking right upper quadrant sonogram and viral hepatitis serology
[2018-08-15] MEDS ORDERED: NICOTINE PATCH1 EAC1 TOP (08:29)
[2018-08-15] MEDS ORDERED: AZITHROMYCIN250 M1 PO (08:29)
--- NOTE | 2018-08-15 08:32 | Patient Discharge Instructions ---
Discharge Instructions General Discharge Information You were seen/treated for: bronchitis Special Instructions: Please follow up with Dr Mims, Potato Chip Sacking Machine Operator within 1 week of discharge. Please follow up with PCP within 1 week of discharge Acute Coronary Syndrome Inclusion Criteria At DC or during hospital stay patient has or had the following: ACS DIAGNOSIS No Discharge Core Measures Meds if any: Prescribed or Continued at Discharge Meds if any: NOT Prescribed or Continued at Discharge Congestive Heart Failure Inclusion Criteria At DC or during hospital stay patient has or had the following: CHF DIAGNOSIS No Discharge Core Measures Meds if any: Prescribed or Continued at Discharge Meds if any: NOT Prescribed or Continued at Discharge Cerebrovascular accident Inclusion Criteria At DC or during hospital stay patient has or had the following: CVA/TIA Diagnosis No Discharge Core Measures Meds if any: Prescribed or Continued at Discharge Meds if any: NOT Prescribed or Continued at Discharge Venous thromboembolism Inclusion Criteria VTE Diagnosis No VTE Type NONE VTE Confirmed by (Test) NONE Discharge Core Measures - Per Current guidelines, there needs to be overlap - treatment for the first 5 days of Warfarin therapy. - If discharged on Warfarin prior to 5 days of - overlap therapy, the patient will need to be - assessed for post discharge needs including - *Post discharge parental anticoagulation - *Warfarin and/or parental anticoagulation education - *Follow up date to check INR post discharge At least 5 days overlap therapy as Inpatient No Meds if any: Prescribed or Continued at Discharge Note: Overlap Therapy is Warfarin and Anticoagulant Meds if any: NOT Prescribed or Continued at Discharge
[2018-08-15] MEDS ORDERED: PREDNISONE10 M2 PO ×2 (09:23→09:24)
--- NOTE | 2018-08-15 11:00 | Discharge Summary ---
Visit Information Visit Dates Admission Date: 08/13/18 Hospital Course Course Attending Physician: Adryan Bolden MD Primary Care Physician: Marivel Dodson MD Allergies: Coded Allergies: cephalexin (From KEFLEX) (ANAPHYLAXIS 01/11/17) Disposition Summary Disposition Principal Diagnosis: ACute Bronchitis Smoking Additional Diagnosis: Undiagnosed maculopapular erythematous skin rash Borderline DM Underlying suspected COPD Smoking Incidental Fatty liver findings. Discharge Disposition: home or self care Discharge Instructions General Discharge Information Code Status: Full Code Patient's Diet: Regular , cut down the fatty food Patient's Activity: as tolerated Follow-Up Instructions/Appts: Follow up with DR Mims within 1 weeek of discharge Follow up with PCP within 1 wek of discarge Prescribed the nebulisation PRN Stteroid taper Medications at Discharge Discharge Medications: Continue taking these medications: Clonidine HCl (Clonidine HCl) 0.2 MG TABLET 1 Tablet ORAL THREE TIMES DAILY Comments: Last Taken:05/21/17 Time:0900 Clonazepam (Clonazepam) 1 MG TABLET 1 Tablet ORAL THREE TIMES DAILY Comments: Last Taken:05/21/17 Time:0900 Furosemide (Lasix) 20 MG TABLET 1 Tablet ORAL TWICE DAILY Bupropion HCl (Wellbutrin XL) 150 MG TAB.ER.24H 1 Tablet ORAL Every Morning Methadone HCl (Methadone HCl) 10 MG/ML ORAL.CONC 70 Milligram ORAL DAILY Hydroxyzine HCl (hydrOXYzine HCl) 50 MG TABLET 1 Tablet ORAL THREE TIMES DAILY Qty = 90 Pregabalin (Lyrica) 150 MG CAPSULE 1 Capsule ORAL TWICE DAILY Qty = 60 Ibuprofen (Ibuprofen) 600 MG TABLET 1 Tablet ORAL As Directed as needed for PAIN/INFLAMMATION Qty = 40 Instructions: with food Start taking the following new medications: Azithromycin (Azithromycin) 250 MG TABLET 250 Milligram ORAL DAILY Qty = 1 No Refills Instructions: . Nicotine (Nicotine Patch) 7 MG/24 HOUR PATCH.TD24 14 Milligram On the skin EVERY 24 HOURS as needed for SMOKING CESSATION Qty = 30 No Refills Instructions: . Prednisone (Prednisone) 10 MG TABLET 4 Tablet ORAL DAILY Qty = 30 No Refills Instructions: . Comments: 4 tabs on 08/19, 08/20 3 tabs on 08/21, 08/22, 08/23 2 tabs on 08/24, 08/25, 08/26 1 tabs on 08/27, 08/28, 08/29 Albuterol Sulfate (Albuterol Sulfate) 2.5 MG/3 ML (0.083 %) VIAL.NEB 3 Milliliters Inhale through mouth EVERY 4 HRS WHILE AWAKE Qty = 30 No Refills Instructions: PLEASE USE WITH NEBULIZER Albuterol Sulfate (Ventolin Hfa) 90 MCG HFA.AER.AD 2 Puff Inhale through mouth EVERY 4-6 HOURS NEEDED as needed for SHOTNESS OF BREATH Qty = 1 No Refills Copies To: Ivory MARTINEZ,Marivel Alvarez; Prasanna MARTINEZ,Suman Estrada MD Review Statement Documenting Attending: Adryan Bolden MD Other Findings: Medically stable to be discharged home today.
--- NOTE | 2018-08-15 13:22 | PN- Student ---
Subjective Subjective: The patient is seen and evaluated this morning. She reports that her cough seems to be "looser" but is still nonproductive. She also believes that her wheezing has improved but reports persistent shortness of breath and is feeling anxious regarding going home and requiring further breathing treatments. Currently she is receiving Proventil every four hours. She states that she would like to stay another night before she feels as if she will do well at home. She is also reporting a rash on her chest that she has had in the past which typically clears up when she receives steroids for bronchitis. Objective Objective: Vitals: temperature - 98.0F, pulse - 84, respiratory rate - 20, blood pressure - 135/90, pulse ox - 98% on NC, 93% on RA General: pleasant obese female sitting up in bed eating breakfast, in no acute distress HEENT: PERRLA, EOMI, no lymphadenopathy noted, mucous membranes moist, oropharynx without erythema or exudate CV: RRR, no murmurs, rubs, or gallops appreciated, radial pulses 2+ bilaterally Pulmonary: diffuse wheezing and rhonchi throughout all lung jimenez Skin: diffuse maculopapular rash noted over upper chest Results Results: Laboratory Tests 08/14/18 0753: Anion Gap 3 L, Estimated GFR > 60, BUN/Creatinine Ratio 16.7, Hemoglobin A1c 6.1 H, CBC w Diff NO MAN DIFF REQ, RBC 3.85 L, MCV 93.2, MCH 30.3, MCHC 32.5 L, RDW 13.6, MPV 8.8, Gran % 50.4, Lymphocytes % 38.3, Monocytes % 10.5 H, Eosinophils % 0.5, Basophils % 0.3, Absolute Granulocytes 4.2, Absolute Lymphocytes 3.2, Absolute Monocytes 0.9 H, Absolute Eosinophils 0, Absolute Basophils 0 08/13/18 1920: Bicarbonate Actual 30.3 H, Mixed VBG pH 7.31, Mixed VBG pCO2 62 H, Mixed VBG O2 Saturation 34 L, Carboxyhemoglobin 3.1, O2 Concentration % 2LPM, O2 Delivery Method NC, Phlebotomy Draw Site RIGHT RADIAL 08/13/18 1619: Anion Gap 2 L, Estimated GFR > 60, BUN/Creatinine Ratio 11.4, Glucose 109 H, Calcium 8.9, Total Bilirubin 0.3, AST 38 H, ALT 46, Alkaline Phosphatase 111, Troponin I < 0.01, Aus-U-Ptkjxveejql Pept 292 H, Total Protein 6.5, Albumin 3.4 L, Globulin 3.1, Albumin/Globulin Ratio 1.1, CBC w Diff NO MAN DIFF REQ, RBC 4.28, MCV 93.2, MCH 30.2, MCHC 32.4 L, RDW 13.7, MPV 8.2, Gran % 31.6 L, Lymphocytes % 55.4 H, Monocytes % 7.0, Eosinophils % 5.8 H, Basophils % 0.2, Absolute Granulocytes 2.5, Absolute Lymphocytes 4.5 H, Absolute Monocytes 0.6, Absolute Eosinophils 0.5, Absolute Basophils 0 Microbiology 08/13 2300 NASOPHARYN: Influenza Virus A & B Rapid Smear - COMP 08/13 1945 BLOOD: Blood Culture - RES 08/13 1935 BLOOD: Blood Culture - RES Assessment/Plan Assessment: 52 y/o female with PMHx of HTN, anxiety, opioid dependence on daily methadone therapy, 30 pack year smoking history, and current every day smoker who presents for several days of nonproductive cough, shortness of breath, and wheezing consistent with acute bronchitis. The patient had a negative CXR and likely has underlying obstructive lung disease that has yet to be diagnosed. Plan: #Shortness of breath and wheezing: given patient's 30 pack year smoking history and current every day smoking, she very likely has underlying COPD that has never been diagnosed. At this point, she is being treated for acute bronchitis with azithromycin 250 mg daily PO day 1/4, methylprednisolone 40 mg IV Q8 hours, and proventil 3 mL Q4 hours. She can take Robitussin PRN for cough. The patient has been evaluated by Dr. Mims in the hospital, who believes that the patient will benefit from another day of respiratory care. Following discharge she will be prescribed a prednisone taper. The patient will follow up with Dr. Mims as an outpatient for PFTs and definitive diagosis of obstructive lung disease. #Rash: maculopapular rash possibly secondary to atopic dermatitis. Patient is receiving IV steroids which should help improve rash. #Current every day smoker: patient reports that she would like to quit smoking and has already cut back from 1.5 ppd to 10 cigarettes per day. Discussed importance of smoking cessation with the patient, who demonstrates understanding. She will be prescribed nicotine patches, as she is currently taking buproprion 150 mg. #Opioid dependence: current methadone dose of 70 mg daily was confirmed with [facility] in [place]. The patient will continue with her home methadone. #HTN: continue with home medications #DVT prophylaxis: ALPs and enoxaparin 40 mg SC #Code status: full code #Disposition: patient will be discharged home tomorrow or Wednesday pending continued improvement from respiratory treatments and IV steroids.
--- NOTE | 2018-08-15 13:22 | PN- Pulmonary ---
Subjective HPI/Critical Care Issues: pt seen and examined feels better since admission however significant exertional dyspnea wheezing cough no n/v/d/c, no cp, no martinez Objective Current Medications: Current Medications Sig/Asia Start time Last Medication Dose Route Stop Time Status Admin Acetaminophen 650 MG Q6P PRN 08/13 2230 AC 08/14 PO 2133 Acetaminophen 1,000 MG Q6P PRN 08/13 2230 AC IV Albuterol Sulfate 3 ML EVERY 4 HRS/AWAKE 08/14 1200 AC 08/15 INH 1103 Azithromycin 250 MG DAILY 08/15 0900 AC 08/15 PO 08/18 0901 0841 Bupropion HCl 150 MG QAM 08/14 0900 AC 08/15 PO 0841 Clonidine 0.2 MG TID 08/14 09 AC 08/15 PO 1308 Docusate Sodium 100 MG BID 08/14 0900 AC 08/15 PO 0841 Enoxaparin Sodium 40 MG DAILY 08/14 0900 AC 08/15 SC 0839 Furosemide 20 MG BID 08/14 0900 AC 08/15 PO 0841 Guaifenesin/Codeine 10 ML Q6P PRN 08/14 0030 AC 08/15 Phosphate PO 1308 Hydroxyzine HCl 50 MG TID PRN 08/14 0215 AC 08/15 PO 1308 Methadone HCl 70 MG DAILY 08/15 1105 AC 08/15 PO 1307 Methylprednisolone 40 MG Q8 08/14 1400 AC 08/15 IV 1307 Nicotine 14 MG DAILY 08/14 1100 AC 08/15 TOP 0839 Nicotine 7 MG Q24 PRN 08/13 2230 AC TOP Polyethylene Glycol 17 GM AT BEDTIME 08/14 2100 AC PO Pregabalin 150 MG BID 08/14 0215 AC 08/15 PO 0839 Vital Signs & I&O Last 24 Hrs of Vitals and I&O: Vital Signs Date Time Temp Pulse Resp B/P B/P Pulse O2 O2 Flow FiO2 Mean Ox Delivery Rate 08/15 1308 75 132/78 08/15 1106 96 Room Air 08/15 0800 95 Room Air 08/15 0705 98.0 84 20 135/90 93 Room Air 08/15 0628 98 Nasal 3.0L Cannula 08/15 0000 93 Room Air 08/14 2200 98.1 93 24 118/74 93 Room Air 08/14 2134 93 118/74 08/14 1638 Nasal 2.0L Cannula 08/14 1427 98.1 77 18 114/73 99 Nasal 3.0L Cannula 08/14 1335 82 130/78 Exam Other Physical Findings: gen-aaox3 heent-o2 cvs-s1,s2 lungs-b/l wheezing abd-soft,bs+ ext-without edema Impression/Plan Impression/Plan Impression/Plan: Impression 52-year-old woman * Acute bronchitis with likely underlying chronic bronchitis with an acute exacerbation * Tobacco dependence * Methadone dependence Plan -Normal chest x-ray -keep Solu-Medrol to 40 mg IV every 8 today - will taper to q12h tomorrow -TRC, nebs -Nicotine replacement for the patch -Tobacco cessation counseling -5 day course of Zithromax -on methadone DC planning 24-48 hrs - will need outpt PFT's DVT prophylaxis at all times
[2018-08-15 14:30] VITALS: BP 150/85
[2018-08-15 21:49] VITALS: BP 131/80
[2018-08-16 06:22] VITALS: BP 130/74
--- NOTE | 2018-08-16 06:33 | PN- Housestaff ---
Catracho [place] 08/16/18 0632: Subjective Follow-up For: Bronchitis Subjective: Patient was seen and examined this morninh. no acute overnight eventsd continues to feel SOB on exertion, Called the PCP today for her previous history and was rold that she takes lasix for b/l pedal edwema, no h/o heart failure. Wheezing continuees. Review of Systems Constitutional: Reports: see HPI. Objective Last 24 Hrs of Vital Signs/I&O Vital Signs Date Time Temp Pulse Resp B/P B/P Pulse O2 O2 Flow FiO2 Mean Ox Delivery Rate 08/16 0838 94 Room Air 08/16 0800 96 Room Air 08/16 0759 68 130/74 08/16 0622 97.6 68 17 130/74 96 08/16 0000 Room Air 08/15 2149 97.9 81 17 131/80 96 Room Air 08/15 2107 82 131/80 08/15 1820 92 Room Air 08/15 1600 95 Room Air Room Air 08/15 1430 97.7 93 18 150/85 95 Room Air Intake & Output 08/16 1600 08/16 0800 08/16 0000 Intake Total 20 870 Output Total Balance 20 870 Intake, IV 20 30 Intake, Oral 0 840 Number 0 0 Bowel Movements Physical Exam General Appearance: Alert, Oriented X3, Cooperative, No Acute Distress Cardiovascular: Regular Rate, No Murmurs Assessment/Plan Assessment: 52 year old obese female with history of HTN, anxiety and opioid dependence presenting with worsening shortness of breath and wheezing secondary to URI. Problems: 1. Bronchitis 2. Upper respiratory infection 3. Active cigarette use 4. maculopapular erythematous skin rash resolving with IV solumedrol Plan:Patient has loud rhonchi and wheezes improving with iv solumedrol . 1. Bronchitis - taper iv dose solumedrol to q 12 solumedrol -Robitussin DM PRN cough -TRC/Duonebs -Rapid flu - Patient counselled about COPD 2. Acitive cigerette smoking- 17mg nictoine patch + home dose of bupropion continued - patient counselled on smoking cessation. 3. H/o opioid dependence- verified methadone use at [facility]( closed today ) continue methaqdone 17mg 4. Rash is seen on chest, face, arms, legs - maculopapular erythematous, Patient gives vague h/o muscle weakness. CPK is negative Full code ALPS & Lovenox DVT ppx Problem List: 1. Upper respiratory infection 2. Bronchitis 3. Rash Pain Ratin Pain Location: none Pain Goal: Remain pain free Pain Plan: none Tomorrow's Labs & Rationales: none Adryan Bolden MD 08/16/18 1147: Attending MD Review Statement Attending Statement Attending MD Statement: examined this patient, discuss w/resident/PA/CONTINUOUS IMPROVEMENT ENGINEER, agreed w/resident/PA/CONTINUOUS IMPROVEMENT ENGINEER, reviewed EMR data (avail), discussed with nursing, discussed with case mgmt, amended to note Attending Assessment/Plan: No new issues overnight reported by nursing staff. No new complaints today. Continue current bronchodilator regimen. Continue steroid taper as recommended by the pulmonology service. Anticipate discharge home tomorrow with outpatient follow-up with her vehicle service agent.
--- NOTE | 2018-08-16 10:22 | ULTRASOUND REPORT ---
EXAMINATION: US ABDOMEN LIMITED CLINICAL INFORMATION: Transaminitis, obesity.. COMPARISON: CTA chest 10/02/2017 TECHNIQUE: Real-time imaging of the right upper quadrant abdominal viscera. Technically challenging exam due to patient body habitus. FINDINGS: PANCREAS: The visualized portions of the pancreatic head and body are unremarkable, the tail is obscured by overlying bowel gas. LIVER: There is mildly increased liver parenchymal echogenicity. The liver is normal in size and contour. No biliary ductal dilatation. GALLBLADDER: The gallbladder is physiologically distended without evidence of stones, sludge, polyps, wall thickening or pericholecystic fluid. COMMON BILE DUCT: Normal in caliber measuring 1.1 cm in diameter. RIGHT KIDNEY: No hydronephrosis. No renal calculi or focal parenchymal lesions. The kidney measures 12.1 cm in maximum dimension. FREE FLUID: None. IMPRESSION: 1. Mildly increased liver parenchymal echogenicity can be seen in the setting of hepatic steatosis. 2. Prominent common bile duct measuring up to 11 mm. No intrahepatic biliary ductal dilatation. The gallbladder is unremarkable in appearance.
--- NOTE | 2018-08-16 10:23 | PN- Student ---
Subjective Subjective: The patient reports that she is feeling improved this morning. Oxygen saturation dropped to 92% yesterday evening but is currently 96%, and the patient denies any difficulty breathing at this time. She has a persistent non-productive cough but this is no worse than yesterday. The patient continues to report heaviness in her upper chest but this is the same as it has been since symptoms began. The patient additionally reports that she has had a headache which was not relieved by tylenol, and she is requesting motrin. She denies and shortness of breath, chest pain, palpitations, fevers, or chills. Objective Objective: Vitals: temperature - 97.6F, pulse - 68, respiratory rate - 17, blood pressure - 130/74, oxygen saturation 96% General: obese female sitting up in bed HEENT: no cervical lymphadenopathy, EOMI, pupils 6 and equally round and reactive to light and accomodation CV: distant heart sounds but regular rate and rhythm, no murmurs, rubs, or gallops appreciated, no JVD Pulmonary: diffuse wheezing throughout lung jimenez, good air movement, appears improved from yesterday Extremities: radial pulse 2+ bilaterally, DP/PT pulses 2+ bilaterally, no lower extremity edema Skin: erythematous maculopapular rash on patient's chest appears improved from yesterday Neuro: AAA x 3, CN II-IX grossly intact, normal affect and concentration Results Results: Laboratory Tests 08/16/18 0900: Creatine Kinase Pending 08/14/18 0753: Anion Gap 3 L, Estimated GFR > 60, BUN/Creatinine Ratio 16.7, Hemoglobin A1c 6.1 H, CBC w Diff NO MAN DIFF REQ, RBC 3.85 L, MCV 93.2, MCH 30.3, MCHC 32.5 L, RDW 13.6, MPV 8.8, Gran % 50.4, Lymphocytes % 38.3, Monocytes % 10.5 H, Eosinophils % 0.5, Basophils % 0.3, Absolute Granulocytes 4.2, Absolute Lymphocytes 3.2, Absolute Monocytes 0.9 H, Absolute Eosinophils 0, Absolute Basophils 0, Hepatitis A IgM Ab NONREACTIVE, Hep Bs Antigen NONREACTIVE, Hep B Core IgM Ab Conf NONREACTIVE, Hepatitis C Antibody NONREACTIVE 08/13/18 1920: Bicarbonate Actual 30.3 H, Mixed VBG pH 7.31, Mixed VBG pCO2 62 H, Mixed VBG O2 Saturation 34 L, Carboxyhemoglobin 3.1, O2 Concentration % 2LPM, O2 Delivery Method NC, Phlebotomy Draw Site RIGHT RADIAL 08/13/18 1619: Anion Gap 2 L, Estimated GFR > 60, BUN/Creatinine Ratio 11.4, Glucose 109 H, Calcium 8.9, Total Bilirubin 0.3, AST 38 H, ALT 46, Alkaline Phosphatase 111, Troponin I < 0.01, Alp-F-Bswtydplmfe Pept 292 H, Total Protein 6.5, Albumin 3.4 L, Globulin 3.1, Albumin/Globulin Ratio 1.1, CBC w Diff NO MAN DIFF REQ, RBC 4.28, MCV 93.2, MCH 30.2, MCHC 32.4 L, RDW 13.7, MPV 8.2, Gran % 31.6 L, Lymphocytes % 55.4 H, Monocytes % 7.0, Eosinophils % 5.8 H, Basophils % 0.2, Absolute Granulocytes 2.5, Absolute Lymphocytes 4.5 H, Absolute Monocytes 0.6, Absolute Eosinophils 0.5, Absolute Basophils 0 Microbiology 08/13 230 NASOPHARYN: Influenza Virus A & B Rapid Smear - COMP 08/13 1945 BLOOD: Blood Culture - RES 08/13 1935 BLOOD: Blood Culture - RES Assessment/Plan Assessment: 52 y/o female with PMHx of HTN, anxiety, opioid dependence on daily methadone therapy, 30 pack year smoking history, and current every day smoker who presents for several days of nonproductive cough, shortness of breath, and wheezing consistent with acute bronchitis. The patient had a negative CXR and likely has underlying obstructive lung disease that has yet to be diagnosed. Plan: #Shortness of breath and wheezing: given patient's 30 pack year smoking history and current every day smoking, she very likely has underlying COPD that has never been diagnosed. At this point, she is being treated for acute bronchitis. - Azithromycin 250 mg daily PO day 2/ - Methylprednisolone 40 mg IV tapered to Q12 hours - Proventil 3 mL Q4 hours. - Robitussin PRN for cough - Patient will be prescribed prednisone taper after she is discharged from the hospital. - She will follow up with Dr. Mims as an outpatient for PFTs and definitive diagosis of obstructive lung disease. - Will prescribe patient albuterol rescue inhaler for home use #Rash: maculopapular rash possibly secondary to atopic dermatitis. -Appears improved from yesterday. -Patient is receiving IV steroids for bronchitis which appears to be improving rash. #Headache: patient reports that she has had intermittent headaches for several years and that the headaches do not repsond to acetaminophen - Ibuprofen 400 mg Q4 PRN #Transaminitis: ALT was elevated at 38 and ALT was normal at 46. Mild transaminitis likely represents fatty liver changes. - Check viral hepatitis panel - RUQ US for further evaluation #Current every day smoker: patient reports that she would like to quit smoking and has already cut back from 1.5 ppd to 10 cigarettes per day. - Had a lengthy discussion with the patient regarding smoking cessation yesterday, and the patient agrees to quit after discharge home. She demonstrates understanding of risks of continued cigarette smoking. - She is currently taking Wellbutrin 150 mg for smoking cessation - We will prescribe nicotine patches #Opioid dependence: current methadone dose of 70 mg daily was confirmed with [facility] [place] in [place]. - Continue with home methadone 70 mg daily #HTN: continue with home medications - Clonidine 0.2 mg TID #Lower extremity edema: patient reports that she has had this off and on for several years. Currently on exam she has no evidence of lower extremity edema or fluid overload. - Last echocardiogram 04/2017 demonstrated an EF of 60-65% - She is currently taking furosemide 20 mg BID and will continue with this dose. - We have left a message with the patient's PCP Dr. Dodson to discuss the reason that the patient is taking furosemide #DVT prophylaxis - ALPs - Enoxaparin 40 mg SC #Diet: patient was NPO prior to obtaining US of the RUQ - Resume full diet once patient has returned from US. #Code status - Full code #Disposition - Patient will be discharged home likely tomorrow pending continued improvement from respiratory treatments and IV steroids.
--- NOTE | 2018-08-16 14:12 | PN- Pulmonary ---
Subjective HPI/Critical Care Issues: pt seen and examined still with exertional dyspnea wheezing cough no n/v/d/c, no cp, no martinez Objective Current Medications: Current Medications Sig/Asia Start time Last Medication Dose Route Stop Time Status Admin Acetaminophen 650 MG Q6P PRN 08/13 2230 AC 08/15 PO 2152 Acetaminophen 1,000 MG Q6P PRN 08/13 2230 AC IV Albuterol Sulfate 3 ML EVERY 4 HRS/AWAKE 08/14 1200 AC 08/16 INH 1153 Azithromycin 250 MG DAILY 08/15 0900 AC 08/16 PO 08/18 0901 0759 Bupropion HCl 150 MG QAM 08/14 09 AC 08/16 PO 0759 Clonidine 0.2 MG TID 08/14 09 AC 08/16 PO 1333 Docusate Sodium 100 MG BID 08/14 09 AC 08/16 PO 0759 Enoxaparin Sodium 40 MG DAILY 08/14 0900 AC 08/16 SC 0759 Furosemide 20 MG BID 08/14 0900 AC 08/16 PO 0759 Guaifenesin/Codeine 10 ML Q6P PRN 08/14 0030 AC 08/16 Phosphate PO 1010 Hydroxyzine HCl 50 MG TID PRN 08/14 0215 AC 08/16 PO 1009 Ibuprofen 0 .STK-MED ONE 08/16 1008 DC PO Ibuprofen 400 MG Q4P PRN 08/16 1000 AC 08/16 PO 1010 Methadone HCl 70 MG DAILY 08/15 1105 AC 08/16 PO 0758 Methylprednisolone 40 MG Q12 08/16 2100 AC IV Methylprednisolone 40 MG Q8 08/14 1400 DC 08/16 IV 0519 Nicotine 14 MG DAILY 08/14 1100 AC 08/16 TOP 0800 Nicotine 7 MG Q24 PRN 08/13 2230 AC TOP Polyethylene Glycol 17 GM AT BEDTIME 08/14 2100 AC 08/15 PO 2104 Pregabalin 150 MG BID 08/14 0215 AC 08/16 PO 0758 Vital Signs & I&O Last 24 Hrs of Vitals and I&O: Vital Signs Date Time Temp Pulse Resp B/P B/P Pulse O2 O2 Flow FiO2 Mean Ox Delivery Rate 08/16 1333 68 130/74 08/16 0838 94 Room Air 08/16 0800 96 Room Air 08/16 0759 68 130/74 08/16 0622 97.6 68 17 130/74 96 08/16 0000 Room Air 08/15 2149 97.9 81 17 131/80 96 Room Air 08/15 2107 82 131/80 08/15 1820 92 Room Air 08/15 1600 95 Room Air Room Air 08/15 1430 97.7 93 18 150/85 95 Room Air Intake & Output 08/16 1600 08/16 0800 08/16 0000 Intake Total 850 20 870 Output Total Balance 850 20 870 Intake, IV 20 30 Intake, Oral 850 0 840 Number 0 0 Bowel Movements Exam Other Physical Findings: gen-aaox3 heent-o2 cvs-s1,s2 lungs-b/l wheezing abd-soft,bs+ ext-without edema Results Last 24 Hrs of Lab Results: Laboratory Tests 08/16/18 0900: Creatine Kinase 30 Impression/Plan Impression/Plan Impression/Plan: Impression 52-year-old woman * Acute bronchitis with likely underlying chronic bronchitis with an acute exacerbation * Tobacco dependence * Methadone dependence Plan -Normal chest x-ray -Solu-Medrol to 40 mg IV every 12h - if doing better will transition to PO prednisone tomorrow -TRC, nebs -Nicotine replacement for the patch -Tobacco cessation counseling -5 day course of Zithromax -on methadone DC planning - will need outpt PFT's DVT prophylaxis at all times
[2018-08-16 14:42] VITALS: BP 142/86
[2018-08-16 21:13] VITALS: BP 139/102
[2018-08-16 23:30] VITALS: BP 141/71
[2018-08-17 07:09] VITALS: BP 160/100
--- NOTE | 2018-08-17 07:28 | PN- Housestaff ---
Catracho Glasgow 08/17/18 0726: Subjective Follow-up For: Bronchitis Subjective: The patient was seen ansd examined this morning. No overnight events overnight. SHe c/o soreness the chest due to cough, Her SOB has slightly increased. NO fever, CHest paisn, dizziness noted Review of Systems Constitutional: Reports: see HPI. Objective Last 24 Hrs of Vital Signs/I&O Vital Signs Date Time Temp Pulse Resp B/P B/P Pulse O2 O2 Flow FiO2 Mean Ox Delivery Rate 08/17 0859 99 Room Air 08/17 0720 Room Air 08/17 0709 97.5 68 18 160/100 95 08/17 0000 Room Air 08/16 2330 141/71 08/16 2118 75 139/102 08/16 2113 97.0 75 18 139/102 100 Room Air 08/16 1620 96 Room Air 08/16 1600 95 Room Air Room Air 08/16 1442 98.3 81 18 142/86 95 Room Air 08/16 1333 68 130/74 Intake & Output 08/17 1600 08/17 0800 08/17 0000 Intake Total 480 980 Output Total Balance 480 980 Intake, IV 0 20 Intake, Oral 480 960 Number 0 1 Bowel Movements Physical Exam General Appearance: Alert, Oriented X3, Cooperative, No Acute Distress Skin: No Rashes (rash around the neck and chest), maculpapular erythematous Rash around the neck, chest and arms decreases with steroids Cardiovascular: Regular Rate, No Murmurs Lungs: Loud diffuse rhonchi heard b/l Abdomen: Normal Bowel Sounds, Soft, No Tenderness, No Hepatospenomegaly, No Masses Neurological: Normal Speech, Strength at 5/5 X4 Ext, Normal Tone, Sensation Intact Extremities: No Clubbing, No Cyanosis, No Edema, Normal Pulses, No Tenderness/ Swelling Current Medications: Current Medications Sig/Asia Start time Last Medication Dose Route Stop Time Status Admin Acetaminophen 650 MG Q6P PRN 08/13 2230 AC 08/15 PO 2152 Acetaminophen 1,000 MG Q6P PRN 08/13 2230 AC IV Albuterol Sulfate 3 ML EVERY 4 HRS/AWAKE 08/14 1200 AC 08/17 INH 0858 Azithromycin 250 MG DAILY 08/15 900 AC 08/17 PO 08/18 0901 0817 Bupropion HCl 150 MG QAM 08/14 09 AC 08/17 PO 0816 Clonidine 0.2 MG TID 08/14 09 AC 08/17 PO 0816 Docusate Sodium 100 MG BID 08/14 09 AC 08/17 PO 0816 Enoxaparin Sodium 40 MG DAILY 08/14 09 AC 08/17 SC 0817 Furosemide 20 MG BID 08/14 0900 AC 08/17 PO 0816 Guaifenesin/Codeine 10 ML Q6P PRN 08/14 0030 AC 08/17 Phosphate PO 0817 Hydroxyzine HCl 50 MG TID PRN 08/14 0215 08/17 PO 0817 Ibuprofen 0 .STK-MED ONE 08/16 1008 OK PO Ibuprofen 400 MG Q4P PRN 08/16 1000 08/17 PO 0817 Methadone HCl 70 MG DAILY 08/15 1105 08/17 PO 0816 Methylprednisolone 40 MG DAILY 08/17 0900 08/17 IV 0817 Methylprednisolone 40 MG Q12 08/16 2100 OK 08/16 IV 2117 Nicotine 14 MG DAILY 08/14 1100 08/17 TOP 0817 Nicotine 7 MG Q24 PRN 08/13 2230 [facility] Patient Medication 1 ED ONE ONE 08/16 1815 OK 08/16 Teaching ED 08/16 1816 1925 Polyethylene Glycol 17 GM AT BEDTIME 08/14 2100 08/15 PO 2104 Pregabalin 150 MG BID 08/14 0215 08/17 PO 0817 Assessment/Plan Assessment: 52 year old obese female with history of HTN, anxiety and opioid dependence presenting with worsening shortness of breath and wheezing secondary to URI. Problems: 1. Bronchitis 2. Upper respiratory infection 3. Active cigarette use 4. maculopapular erythematous skin rash resolving with IV solumedrol Plan:Patient has loud rhonchi and wheezes , c/o chest pain 1. Bronchitis - taper iv dose solumedrol to q 12 solumedrol, will d/c solumedrol and start oral prednisone tonight -Robitussin DM PRN cough -TRC/Duonebs -Rapid flu - Patient counselled about COPD 2. Chest pain- EKG - WNL troponin, D Dimer- nad given percocet and cyclobenzaprine 2. Acitive cigerette smoking- 17mg nictoine patch + home dose of bupropion continued - patient counselled on smoking cessation. 3. H/o opioid dependence- verified methadone use at [facility]( closed today ) continue methaqdone 17mg 4. Rash is seen on chest, face, arms, legs - maculopapular erythematous, Patient gives vague h/o muscle weakness. CPK is negative Full code ALPS & Lovenox DVT ppx Problem List: 1. Bronchitis 2. Rash Pain Ratin Pain Location: chest Pain Goal: Remain pain free Pain Plan: cyclobenzaprine, percocet Tomorrow's Labs & Rationales: none Adryan Bolden MD 08/17/18 1203: Attending MD Review Statement Attending Statement Attending MD Statement: examined this patient, discuss w/resident/PA/GENERAL OFFICE DISPATCHER, agreed w/resident/PA/GENERAL OFFICE DISPATCHER, reviewed EMR data (avail), discussed with nursing, discussed with case mgmt, amended to note Attending Assessment/Plan: Patient seen and examined. No issues overnight reported by nursing staff. This morning however patient began complaining of right-sided chest pain radiating up the neck and down the chest wall. Pain is pleuritic in nature aggravated by coughing and deep breaths. Pain occurs at rest and is not related to exertion. On examination she is not in any acute respiratory distress. Has adequate entry bilaterally with mild rhonchi more predominant on the right side. Pain is mildly reproducible. Heart sounds are regular with no audible murmurs. Abdomen soft and nontender. No peripheral edema. EKG done shows unchanged nonspecific T wave changes. Recommendations: -Pain is pleuritic and brought about by her coughing. Continue her chronic methadone therapy. Add ibuprofen 800 mg orally 3 times a day for the pain control. -Check d-dimer, if significantly elevated will consider CT angiogram to rule out pulmonary embolism. Check troponin level. -Continue bronchodilator therapy. Transition to oral prednisone as recommended by the pulmonology service. -Ensure adequate ambulation daily. -Viral hepatitis panel is negative. Right upper quadrant sonogram shows evidence of hepatic steatosis. Significant is common bile duct dilatation up to 11 mm with no intrahepatic biliary ductal dilatation or evidence of cholelithiasis. Questionable significance. Recommend outpatient follow-up with the gastroenterology service. Repeat transaminases, if trending upwards we will obtain inpatient gastroenterology consultation.
[2018-08-17] MEDS ORDERED: PREDNISONE10 M2 PO ×2 (07:56→10:56)
[2018-08-17] MEDS ORDERED: AZITHROMYCIN250 M1 PO (08:49)
--- NOTE | 2018-08-17 09:20 | PN- Pulmonary ---
Subjective HPI/Critical Care Issues: pt seen and examined improving exertional dyspnea coughing, difficult to bring up phlegm wheezing cough no n/v/d/c, no cp, no martinez Objective Current Medications: Current Medications Sig/Asai Start time Last Medication Dose Route Stop Time Status Admin Acetaminophen 650 MG Q6P PRN 08/13 2230 AC 08/15 PO 2152 Acetaminophen 1,000 MG Q6P PRN 08/13 2230 IV Albuterol Sulfate 3 ML EVERY 4 HRS/AWAKE 08/14 1200 AC 08/17 INH 0858 Azithromycin 250 MG DAILY 08/15 0900 AC 08/17 PO 08/18 0901 0817 Bupropion HCl 150 MG QAM 08/14 09 AC 08/17 PO 0816 Clonidine 0.2 MG TID 08/14 09 AC 08/17 PO 0816 Docusate Sodium 100 MG BID 08/14 0900 AC 08/17 PO 0816 Enoxaparin Sodium 40 MG DAILY 08/14 0900 AC 08/17 SC 0817 Furosemide 20 MG BID 08/14 0900 AC 08/17 PO 0816 Guaifenesin/Codeine 10 ML Q6P PRN 08/14 0030 AC 08/17 Phosphate PO 0817 Hydroxyzine HCl 50 MG TID PRN 08/14 0215 AC 08/17 PO 0817 Ibuprofen 0 .STK-MED ONE 08/16 1008 DC PO Ibuprofen 400 MG Q4P PRN 08/16 1000 AC 08/17 PO 0817 Methadone HCl 70 MG DAILY 08/15 1105 08/17 PO 0816 Methylprednisolone 40 MG DAILY 08/17 0900 08/17 IV 0817 Methylprednisolone 40 MG Q12 08/16 2100 DC 08/16 IV 2117 Nicotine 14 MG DAILY 08/14 1100 08/17 TOP 0817 Nicotine 7 MG Q24 PRN 08/13 2230 [facility] Patient Medication 1 ED ONE ONE 08/16 1815 DC 08/16 Teaching ED 08/16 1816 1925 Polyethylene Glycol 17 GM AT BEDTIME 08/14 2100 AC 08/15 PO 2104 Pregabalin 150 MG BID 08/14 0215 08/17 PO 0817 Vital Signs & I&O Last 24 Hrs of Vitals and I&O: Vital Signs Date Time Temp Pulse Resp B/P B/P Pulse O2 O2 Flow FiO2 Mean Ox Delivery Rate 08/17 0859 99 Room Air 08/17 0720 Room Air 08/17 0709 97.5 68 18 160/100 95 08/17 0000 Room Air 08/16 2330 141/71 08/16 2118 75 139/102 08/16 2113 97.0 75 18 139/102 100 Room Air 08/16 1620 96 Room Air 08/16 1600 95 Room Air Room Air 08/16 1442 98.3 81 18 142/86 95 Room Air 08/16 1333 68 130/74 Intake & Output 08/17 1600 08/17 0800 08/17 0000 Intake Total 480 980 Output Total Balance 480 980 Intake, IV 0 20 Intake, Oral 480 960 Number 0 1 Bowel Movements Exam Other Physical Findings: gen-aaox3 heent-o2 cvs-s1,s2 lungs-b/l wheezing abd-soft,bs+ ext-without edema Impression/Plan Impression/Plan Impression/Plan: Impression 52-year-old woman * Acute bronchitis with likely underlying chronic bronchitis with an acute exacerbation * Tobacco dependence * Methadone dependence Plan -Normal chest x-ray -DC Solu-Medrol, give prednisone 40mg in pm (received IV dose today) -tomorrow begin 40mg daily x 3 days, 30mg x 3 days, 20mg x 3 days, 10mg x 3 days , then stop -mucomyst nebulized BID while hospitalized -please arrange for nebulizer machine and neb therapy upon discharge -TRC, nebs -Nicotine replacement for the patch -Tobacco cessation counseling -5 day course of Zithromax -on methadone DC planning - will need outpt PFT's DVT prophylaxis at all times Likely discharge tomorrow
[2018-08-17 09:56] VITALS: BP 151/105
--- NOTE | 2018-08-17 11:10 | PN- Student ---
Subjective Subjective: Patient seen and examined this morning. She reports that her symptoms seem to be improving and that she is no longer feeling short of breath. She still gets mildly winded with exertion. Patient has been ambulating on the floor. She states that her rash is continously improving with steroids. She endorses persistent chest heaviness over her upper chest. During rounds the patient developed sudden pain in the middle of her chest that radiated under her right breast and was worse with movement. Stat EKG was obtained which was negative for acute findings after comparison with prior. She denies fevers, chills, nausea, vomiting, diarrhea, or palpitations. Objective Objective: Vitals: temperature 97.5F, pulse 68, respiratory rate 18, blood pressure 160/100 , oxygen saturation 95% on RA General: obese female sitting up in bed HEENT: no cervical lymphadenopathy, EOMI, pupils 6 and equally round and reactive to light and accomodation CV: distant heart sounds but regular rate and rhythm, no murmurs, rubs, or gallops appreciated, no JVD Pulmonary: diffuse wheezing and rhonchi throughout lung jimenez, rhonchi slightly worse than yesterday, no accessory muscle use or respiratory distress Extremities: radial pulse 2+ bilaterally, DP/PT pulses 2+ bilaterally, no lower extremity edema Skin: erythematous maculopapular rash on patient's chest appears improved Neuro: A&O x 3, CN II-IX grossly intact, normal affect and concentration Assessment/Plan Assessment: 52 y/o female with PMHx of HTN, anxiety, opioid dependence on daily methadone therapy, 30 pack year smoking history, and current every day smoker who presents for several days of nonproductive cough, shortness of breath, and wheezing consistent with acute bronchitis. The patient had a negative CXR and likely has underlying obstructive lung disease that has yet to be diagnosed Plan: #Shortness of breath and wheezing: given patient's 30 pack year smoking history and current every day smoking, she very likely has underlying COPD that has never been diagnosed. At this point, she is being treated for acute bronchitis. - Azithromycin 250 mg daily PO day 3/4 - Methylprednisolone 40 mg IV tapered to Q12 hours yesterday and discontinued. Patient received a one time dose of 40 mg IV and will receive one dose 40 mg PO today as well. - Patient will be prescribed prednisone taper after she is discharged from the hospital, likely tomorrow morning. - Proventil 3 mL Q4 hours. - Robitussin PRN for cough - She will follow up with Dr. Mims as an outpatient for PFTs and definitive diagosis of obstructive lung disease. - Will prescribe patient albuterol rescue inhaler and nebulizer for home use #Rash: maculopapular rash possibly secondary to atopic dermatitis. - Appears improved from yesterday. - Patient is receiving IV steroids for bronchitis which appears to be improving rash. - Spoke to patient's PCP yesterday, Dr. Dodson, who requested that dermatology see the patient while she is in the hospital as her insurance doesn't cover outpatient dermatology. Unfortunately we do not have in house dermatology to see the patient. #Chest pain: pleuritic chest pain that radiates to the right breast likely due to patient's prolonged coughing. Stat EKG demonstrated T wave flattening which was seen on previous EKG. No ST elevation. - Percocet given - No indication for troponin or d-dimer testing at this time (Wells score 1.5, low risk) - Will evaluate further if chest pain does not resolve #Transaminitis: ALT was elevated at 38 and ALT was normal at 46. Mild transaminitis likely represents fatty liver changes. - Viral hepatitis panel negative - RUQ US on 08/16/18 revealed hepatic steatosis, no other acute findings #Current every day smoker: patient reports that she would like to quit smoking and has already cut back from 1.5 ppd to 10 cigarettes per day. - Had a lengthy discussion with the patient regarding smoking cessation yesterday, and the patient agrees to quit after discharge home. She demonstrates understanding of risks of continued cigarette smoking. - She is currently taking Wellbutrin 150 mg for smoking cessation - We will prescribe nicotine patches #Opioid dependence: current methadone dose of 70 mg daily was confirmed with [facility] in [place]. - Continue with home methadone 70 mg daily #HTN: continue with home medications - Clonidine 0.2 mg TID #Lower extremity edema: patient reports that she has had this off and on for several years. Currently on exam she has no evidence of lower extremity edema or fluid overload. - Last echocardiogram 04/2017 demonstrated an EF of 60-65% - She is currently taking furosemide 20 mg BID and will continue with this dose. - Discussed furosemide with patient's PCP, who reports that patient has isolated episodes of lower extremity edema not concerning for underlying cardiac pathology at this time #DVT prophylaxis - ALPs - Enoxaparin 40 mg SC #Diet - Full diet #Code status - Full code #Disposition - Patient had some concerns about leaving today, and with her episode of chest pain she will stay in the hospital one more night for continued monitoring.
[2018-08-17 14:15] VITALS: BP 144/77
[2018-08-17 22:34] VITALS: BP 130/73
[2018-08-18 07:20] VITALS: BP 130/64
--- NOTE | 2018-08-18 09:44 | PN- Housestaff ---
Catracho Glasgow 08/18/18 0944: Subjective Subjective: The patient was seen and examined this morning. SHe is feeling much better, no SOB and CP. Rash has almost resolved. Said she wants to go home today. Kimi MARTINEZ,Adryan 08/18/18 1100: Attending MD Review Statement Attending Statement Attending MD Statement: examined this patient, discuss w/resident/PA/ROASTERMAN, agreed w/resident/PA/ROASTERMAN, reviewed EMR data (avail), discussed with nursing, discussed with case mgmt, amended to note Attending Assessment/Plan: Patient seen and examined. Resting comfortably and not in any acute distress. Very good spirits this morning. D-dimer returned negative yesterday. EKG showed no ischemic changes. Troponin was negative. Pain appears to be musculoskeletal. She reports pain has improved significantly today. Still reports some pain with coughing and deep inspiration. She remains hemodynamically stable. She continues to maintain saturation on room air. She has minimal wheezing on examination bilaterally. At this point she is medically stable to be discharged home. She is to continue bronchodilator therapy at home. She will be provided with prescriptions for albuterol inhalers as well as nebulizer machine and albuterol nebulizers to use as needed. She is to follow- up with the excellence specialist Suman Mims MD as an outpatient for pulmonary function testing. She has been encouraged to continue with smoking cessation. Her transaminitis secondary to hepatic steatosis. She has been advised to exercise regularly and to lose weight. She is to follow-up with her primary care provider regarding this.
--- NOTE | 2018-08-18 10:08 | PN- Pulmonary ---
Subjective HPI/Critical Care Issues: pt seen and examined improving exertional dyspnea wheezing cough no n/v/d/c, no cp, no martinez Objective Current Medications: Current Medications Sig/Asia Start time Last Medication Dose Route Stop Time Status Admin Acetaminophen 650 MG Q6P PRN 08/13 2230 AC 08/15 PO 2152 Acetaminophen 1,000 MG Q6P PRN 08/13 2230 AC 08/17 IV 1238 Acetylcysteine 2 ML BID 08/17 0958 DC INH Albuterol Sulfate 3 ML EVERY 4 HRS/AWAKE 08/14 1200 AC 08/18 INH 0859 Azithromycin 250 MG DAILY 08/15 0900 DC 08/18 PO 08/18 0901 0852 Bupropion HCl 150 MG QAM 08/14 09 AC 08/18 PO 0852 Clonidine 0.2 MG TID 08/14 09 AC 08/18 PO 0851 Cyclobenzaprine HCl 10 MG BID 08/17 2100 AC 08/18 PO 0851 Cyclobenzaprine HCl 10 MG BID PRN 08/17 1145 DC 08/17 PO 1255 Docusate Sodium 100 MG BID 08/14 09 AC 08/18 PO 0851 Enoxaparin Sodium 40 MG DAILY 08/14 0900 AC 08/18 SC 0852 Furosemide 20 MG BID 08/14 0900 AC 08/18 PO 0851 Guaifenesin/Codeine 10 ML Q6P PRN 08/14 0030 AC 08/17 Phosphate PO 1632 Hydroxyzine HCl 50 MG TID PRN 08/14 0215 AC 08/17 PO 1718 Ibuprofen 400 MG Q4P PRN 08/16 1000 AC 08/17 PO 2029 Melatonin 5 MG AT BEDTIME PRN 08/17 2030 AC 08/17 PO 2144 Methadone HCl 70 MG DAILY 08/15 1105 AC 08/18 PO 0849 Methylprednisolone 40 MG DAILY 08/17 0900 AC 08/17 IV 0817 Nicotine 14 MG DAILY 08/14 1100 AC 08/18 TOP 0850 Nicotine 7 MG Q24 PRN 08/13 2230 AC TOP Oxycodone/ 1 TAB ONCE ONE 08/17 1100 DC 08/17 Acetaminophen PO 08/17 1101 1054 Oxycodone/ 0 .STK-MED ONE 08/17 1056 DC Acetaminophen PO Patient Medication 1 ED ONE ONE 08/17 1115 DC Teaching ED 08/17 1116 Polyethylene Glycol 17 GM AT BEDTIME 08/14 2100 AC 08/15 PO 2104 Prednisone 40 MG DAILY 08/18 0900 AC 08/18 PO 08/20 1300 0849 Pregabalin 150 MG BID 08/14 0215 AC 08/18 PO 0849 Vital Signs & I&O Last 24 Hrs of Vitals and I&O: Vital Signs Date Time Temp Pulse Resp B/P B/P Pulse O2 O2 Flow FiO2 Mean Ox Delivery Rate 08/18 0859 96 Room Air 08/18 0720 97.7 66 19 130/64 93 08/18 0000 Room Air 08/17 2234 98.1 74 19 130/73 94 Room Air 08/17 2144 74 130/73 08/17 1951 95 Room Air Room Air 08/17 1605 95 Room Air Room Air 08/17 1600 Room Air 08/17 1415 97.9 77 18 144/77 93 Room Air 08/17 1255 78 150/100 Exam Other Physical Findings: gen-aaox3 heent-o2 cvs-s1,s2 lungs-b/l wheezing improved abd-soft,bs+ ext-without edema Results Last 24 Hrs of Lab Results: Laboratory Tests 08/17/18 1154: Troponin I < 0.01, D-Dimer High Sensitivty 207 Impression/Plan Impression/Plan Impression/Plan: Impression 52-year-old woman * Acute bronchitis with likely underlying chronic bronchitis with an acute exacerbation * Tobacco dependence * Methadone dependence Plan -Normal chest x-ray -40mg daily x 3 days, 30mg x 3 days, 20mg x 3 days, 10mg x 3 days, then stop -mucomyst nebulized BID while hospitalized -please arrange for nebulizer machine and neb therapy upon discharge -TRC, nebs -Nicotine replacement for the patch -Tobacco cessation counseling -5 day course of Zithromax -on methadone DC planning - will need outpt PFT's DVT prophylaxis at all times Okay for discharge, patient called to make appointment with myself
[2018-08-18] MEDS ORDERED: ALBUTEROL2.5 MG/3 M INH (10:35)
[2018-08-18] MEDS ORDERED: NICOTINE PATCH1 EAC1 TOP (10:35)
[2018-08-18] MEDS ORDERED: AZITHROMYCIN250 M1 PO ×2 (10:35→11:52)
[2018-08-18] MEDS ORDERED: VENTOLIN HFA18 GM INH ×2 (10:35→11:52)
[2018-08-18] MEDS ORDERED: PREDNISONE10 M2 PO ×2 (10:35→11:52)
--- NOTE | 2018-08-18 11:45 | PN- Student ---
[facility] 08/18/18 1127: Assessment/Plan Assessment: Admission date: 08/13/2018 Discharge date: 08/18/2018 52 y/o female with PMHx of HTN, anxiety, opioid dependence on daily methadone therapy, 30 pack year smoking history, and current every day smoker who presents for several days of nonproductive cough, shortness of breath, and wheezing which developed after she had a "head cold" at home. She has had several episodes like this in the past requiring steroid treatment, and she has never been diagnosed with obstructive lung disease. In the emergency department, exam was remarkable for diffuse wheezing and rhonchi. Workup in the ED revealed WBC 8.0, H&H 12.9 and 39.9, platelet 290, sodium 138, potassium 4.7, chloride 101, bicarbonate 35, BUN 8, creatinine 0.7, AST 38, ALT 46, alkaline phosphatase 111, troponin < 0.01 , and BNP 292. Because of the patient's dyspnea and metabolic alkalemia seen on workup, venous blood gas was obtained which revealed corrected bicarbonate 30, pH 7.31, CO2 62, mixed O2 saturation 62% on 2 L NC. The patient was given a dose of IV azithromycin, was started on IV steroids, and was given nebulizer treatments. She was admitted to the general medicine service for further evaluation and treatment. During her hospitalization, she was treated with methylprednisolone 40 mg Q8 which was tapered to Q12 and then to one dose daily. She was transitioned to PO prednisone on 08/17 and will be discharged with an oral prednisone taper. She was also given regular nebulizer treatments while in the hospital. Wheezing and rhonchi gradually imroved over the course of her treatment, and on discharge day 08/18 (HD 6) the patient's exam only revealed scant expiratory wheezing throughout all lung jimenez. She also reported significantly improved exertional dyspnea and completely denied shortness of breath. Labarotatory workup was repeated on 08/14 (HD 2) and was unchanged from workup in the ED. The patient was evaluated by meat and seafood manager Dr. Mims daily while in the hospital who helped guide treatment decisions. Of note, on 08/17 (HD 5) the patient developed pain in the middle of her chest which was pleuritic in nature and radiated under the right breast. D-dimer, repeat troponin, and EKG were negative, and the pain was determined to be more consistent with costochondritis secondary to her increased coughing. Flexeril was administered which improved the patient's pain. In addition to being treated for acute bronchitis, the patient was found to have a maculopapular erythematous rash on her chest which she reportedly has had for several years. She states that this rash typically improves whenever she receives steroids for her breathing. The rash almost completely resolved during her time in the hospital. This rash is possibly secondary to atopic dermatitis and the patient was advised to follow up with dermatology as an outpatient. Additionally, because of mild transaminitis found on laboratory workup, we obtained RUQ US which was consistent with hepatic steatosis but was otherwise negative for acute findings. We also obtained an A1C which was 6.1, indicating borderline diabetes mellitus. The patient states that she was already aware of this. The patient was counseled extensively on smoking cessation, as well as on her borderline diabetes/hepatic steatosis. She was encouraged to increase daily activity as tolerated and to eat a healthier diet. She demonstrated good understanding of all recommendations and reports that she is planning to quit smoking and make positive lifestyle changes. Discharge medications: -Albutrol sulfate inhaler 90 mcg, 2 puffs Q4-6 hours PRN -Albuterol sulfate nebulizer 2.5 mg/3L, 3 mL Q4 hours -Azithromycin 250 mg (#1 tablet to complete 5 day course) -Nicotine patches Primary diagnosis: acute bronchitis Secondary diagnoses: cigarette smoking, maculopapular erythematous rash, borderline diabetes mellitus, hepatic steatosis, likely underlying COPD Follow up instructions: -Take prednisone as follows: 40mg daily x 3 days, 30mg x 3 days, 20mg x 3 days, 10mg x 3 days, then stop -Follow up with meat and seafood manager Dr. Mims for PFTs within one week -Follow up with PCP Dr. Dodson within one week -Continue to take home medications as prescribed (Wellbutrin XL 150 mg PO QAM, Clonazepam 1 mg PO TID, Clonidine HCl 0.2 mg PO TID, Hydroxyzine HCl 50 mg PO TID, Furosemide 20 mg PO BID PRN for swelling, Methadone 70 mg PO daily, Pregabalin 150 mg PO BID). -Regular diet -Activity as tolerated -Full code #Transaminitis: ALT was elevated at 38 and ALT was normal at 46. Mild transaminitis likely represents fatty liver changes. - Viral hepatitis panel negative - RUQ US on 08/16/18 revealed hepatic steatosis, no other acute findings #Current every day smoker: patient reports that she would like to quit smoking and has already cut back from 1.5 ppd to 10 cigarettes per day. - Had a lengthy discussion with the patient regarding smoking cessation yesterday, and the patient agrees to quit after discharge home. She demonstrates understanding of risks of continued cigarette smoking. - She is currently taking Wellbutrin 150 mg for smoking cessation - We will prescribe nicotine patches #Opioid dependence: current methadone dose of 70 mg daily was confirmed with [facility] in [place]. - Continue with home methadone 70 mg daily #HTN: continue with home medications - Clonidine 0.2 mg TID #Lower extremity edema: patient reports that she has had this off and on for several years. Currently on exam she has no evidence of lower extremity edema or fluid overload. - Last echocardiogram 04/2017 demonstrated an EF of 60-65% - She is currently taking furosemide 20 mg BID and will continue with this dose. - Discussed furosemide with patient's PCP, who reports that patient has isolated episodes of lower extremity edema not concerning for underlying cardiac pathology at this time #DVT prophylaxis - ALPs - Enoxaparin 40 mg SC #Diet - Full diet #Code status - Full code #Disposition - Patient had some concerns about leaving today, and with her episode of chest pain she will stay in the hospital one more night for continued monitoring.
== END 2018-08-18 13:00 | DRG 145 ==
LOC: ERH 15:41 → ERHI 19:02 → 2NB 19:02 → ENRESERV 20:37 → ENTRNSPT 21:13 → EDTRNSPTSTS 21:35 → EDTRNSPT 21:35 → CMPTRNSPT 21:57 → 2NB 22:01 → ENPENDDIS 08-18 08:50 → 2NB 08-18 13:00
PROVIDERS: Physician Assistant; Student in an Organized Health Care Education/Training Program
DX: J20.9 Acute bronchitis, unspecified (principal); I10 Essential (primary) hypertension; F31.9 Bipolar disorder, unspecified; F41.9 Anxiety disorder, unspecified; F11.20 Opioid dependence, uncomplicated; F17.210 Nicotine dependence, cigarettes, uncomplicated; L30.8 Other specified dermatitis; K76.0 Fatty (change of) liver, not elsewhere classified; R09.02 Hypoxemia; E66.9 Obesity, unspecified; Z68.41 Body mass index [BMI] 40.0-44.9, adult; Z88.1 Allergy status to other antibiotic agents; F43.10 Post-traumatic stress disorder, unspecified; Z96.653 Presence of artificial knee joint, bilateral; Z98.1 Arthrodesis status
CPT/HCPCS: 2NBP; 36415; 36592; 71046; 82436; 87040; 87804; 87804-59; 93005; 93010; J0456; J1650; J2920; J7040; J7608